=== PATIENT | female | born 1950 | race Caucasian/White ===

== ENCOUNTER → 2018-04-28 13:54 | Outpatient (CLI) | payer MEDICARE, SELFPAY ==
--- NOTE | 2018-04-28 13:56 | BI_ITS ---
MAMMOGRAPHY - BILATERAL DIAGNOSTIC REASON FOR EXAM: Female, 68 years old. 1 1/2 month history of palpable abnormality in the right breast. PERTINENT HISTORY: Personal history of breast cancer. Prior left lumpectomy with radiation treatment and chemotherapy. TECHNIQUE: Digital bilateral breast nicolasa (3D mammographic acquisition) in the CC and MLO projections. 2-D mediolateral oblique (MLO) and craniocaudad (CC) views of both breasts were obtained. CAD: Full Field Digital Mammography with Computer Added Detection was performed. COMPARISON: Comparison is made with prior abdomen examination dated May 07, 2017. FINDINGS: Breast Composition: The breasts are heterogeneously dense, which may obscure small masses. The patient is status post lumpectomy in the deep inferior mid aspect of the left breast. Stable appearance of the dense postoperative calcifications with deformity of the periareolar region of the left breast. There is evidence of retraction of the right nipple. There now is evidence of a 1.2 cm x 1.1 cm ill-defined nodular density in the retroareolar region of the right breast corresponding to the palpable abnormality. Correlation with ultrasound is recommended. BI/DIAG MAMM W/CAD, BILAT IMPRESSION: The palpable abnormality corresponds to a 1.3 cm x 1.1 cm irregular nodular density in the inferior retroareolar region of the right breast. This corresponds to the palpable abnormality. Correlation with ultrasound is recommended. ASSESSMENT CATEGORY: BIRADS Category 0: Incomplete. Need additional imaging evaluation. A letter regarding these results will be sent to the patient by the facility within 30 days. Approximately 10% of breast cancers are not detected by mammography. A normal mammogram should not delay biopsy of a clinically suspicious abnormality. Electronically Signed: Ismael Winters MD at 15:28 EST Tel [phone], Service support ,
--- NOTE | 2018-04-28 13:57 | US_ITS ---
STUDY: ULTRASOUND BREAST - RIGHT REASON FOR EXAM: Female, 68 years old. Palpable lump in the right breast. TECHNIQUE: Axial and longitudinal images of the RIGHT breast were performed with a high resolution ultrasound transducer. COMPARISON: Comparison is made with prior mammogram done earlier today. FINDINGS: RIGHT Breast: There is a 1.4 cm x 1.1 cm x 1.2 cm hypoechoic irregular nodule at the 6:00 position breast adjacent to the nipple. This corresponds to the palpable abnormality. A biopsy is recommended. US/Breast Limited Unilateral IMPRESSION: The palpable abnormality corresponds to a 1.4 cm x 1.1 cm x 1.2 cm ill-defined hypoechoic nodule. A biopsy is recommended. ASSESSMENT CATEGORY: BIRADS Category 5: Highly Suggestive of Malignancy - Appropriate Action Should Be Taken. A letter regarding these results will be sent to the patient by the facility within 30 days. Electronically Signed: Ismael Winters MD at 15:31 EST Tel [phone], Service support ,
== END ==
PROVIDERS: Family Provider Internal Medicine; PCP Internal Medicine; Referring Provider Internal Medicine Hematology & Oncology; Visit Provider Internal Medicine Hematology & Oncology
DX: N63.10 Unspecified lump in the right breast, unspecified quadrant (principal); C50.912 Malignant neoplasm of unspecified site of left female breast
CPT/HCPCS: 76642; 77062; 77066; G0279

== ENCOUNTER → 2018-05-03 13:42 | Outpatient (CLI) | payer MEDICARE, SELFPAY ==
--- NOTE | 2018-05-03 | BRBX_PTH ---
PATIENT: ARANZA BAILON LOC: [facility] U#:[id number] AGE/SX: 75/F ROOM: RE05/03/[address]: Dr. Yuliya Knox MD : 1950 BED: DIS: SPEC #: [id number] RECD: 05/03/18 14:54 STATUS: EDENILSON RETerri #: [id number] HARPREET: 05/03/18 00:[address]: Yuliya Knox DEPT: SURGICAL PATHOLOGY RECD BY: Hamlet Pearl ENTERED: 05/03/18 14:54 SP TYPE: BREAST BX OTHR DR: Dr. Dalton Bonilla MD Tissues: Right breast, NOS Procedures: Surgery Specimen Level IV HEADER OPERATION: Ultrasound guided needle core, right breast biopsy PRE-OP DIAGNOSIS: Right breast mass TISSUE SUBMITTED: Right breast biopsy ISCHEMIC TIME: 1 minute FIXATION TIME: 9 hours MICROSCOPIC DIAGNOSIS Right breast mass, ultrasound guided core biopsy: Invasive ductal carcinoma with the following characteristics. Nuclear grade: 2-3 Maximal length: 4.5 mm AM:rosalia 05/04/18 COMMENT ER/NV/Psx1eos studies are being performed on sections of tumor and the results from this study will be reported separately ([id number]) Case has been reviewed in consultation with Dr. Reed who concurs with the above diagnosis. BOBY:HAYLEE. MICROSCOPIC DESCRIPTION Slides are reviewed. GROSS DESCRIPTION Received is one container labeled with the patient name and designated right breast biopsy. The specimen consists of multiple elongated fragments of gagnon-yellow fibroadipose tissue that in aggregate measure 1.5 x 0.3 x 0.1 cm. The specimen is totally submitted in one cassette. / HAYLEE:rosalia 05/03/18 TC: 0 CPT: 98285
--- NOTE | 2018-05-03 | IMM_PTH ---
PATIENT: ARANZA BAILON LOC: [facility] U#:[id number] AGE/SX: 75/F ROOM: RE05/03/[address]: Dr. Yuliya Knox MD : 1950 BED: DIS: SPEC #: [id number] RECD: 05/05/18 07:59 STATUS: EDENILSON REQ #: [id number] HARPREET: 05/03/18 00:[address]: Yuliya Knox DEPT: IMMUNOHISTOCHEMISTRY RECD BY: Hannah Rogers ENTERED: 05/05/18 08:01 SP TYPE: IMMUNO OTHR DR: Dr. Dalton Bonilla MD Tissues: Right breast, NOS Procedures: CALPONIN-1 (add) CK5-6 (add) CK8 (add) E-CAD (add) HER2 STEPHY (add) KI-67 (add) P53 (add) CO (add) P40 (add) ER (initial) PHYSICIAN & [address] [address] SPECIMEN INFORMATION: Tissue Source: Right breast, biopsy Clinical Info: Right breast mass Specimen Number: [id number] CPT code: 72545, 18894 x6, 81324 x3 METHODOLOGY: Deparaffinized sections of prefer/formalin-fixed tissue or PAP/DQ stained slides are incubated with monoclonal/polyclonal antibodies/oligonucleotide probes. Localization is made via biotin free immunoperoxidase method. Appropriate controls are performed and reacted as expected. Results on target cell population are indicated in the following table: RESULTS: ANTIBODY / CLONE RESULT P53 (DO-7) positive, 2% Ki-67 (30-9) low CK8 (42sseyZ31) positive CK5-6 (D5 & 1684) negative Calponin-1 (MW581J) negative P40 (BC28) negative E-Cad (ECH-6) positive MORPHOMETRIC ANALYSIS ER (clone 6F11) positive, >95%, strong CO (clone 16/1E2) positive, >95%, strong Her-2Neu (clone CB11) negative (0-1+) The prognostic test for HER2 is performed on formalin-fixed paraffin embedded tissue. A 3+ (positive) staining pattern is defined as intense, homogeneous, complete, circumferential membranous staining in >10% of contiguous tumor cells. A similar weak (2+) staining pattern is interpreted as equivocal. TESFAYE follow-up testing is recommended for all equivocal cases. Positivity/negativity for ER/CO is reported if > or < 1% of the tumor cells are immuno- reactive, respectively. The ASCO/CAP criteria is used for scoring. Reference: Journal of Clinical Oncology, 2013; 31:0693-1009 & 2010; 16:9758-0777. Duration of fixation: 9 Hrs; Sample Adequate: Yes. These assays have not been validated on decalcified tissues. Results should be interpreted with caution given the likelihood of false negativity on decalcified specimens. These tests were developed and their performance characteristics determined by [facility]. They may not have been cleared or approved by the U.S. Food and Drug Administration. The FDA has determined that such clearance or approval is not necessary. INTERPRETATION: Right breast, biopsy: Invasive ductal carcinoma. ADDENDUM ADDENDUM ADDENDUM ADDENDUM ADDENDUM ADDENDUM ADDENDUM 05/18/2018 15:11 ADDENDUM 05/18/2018 15:11 ADDENDUM 05/18/2018 15:11 ADDENDUM 05/18/2018 15:11 ADDENDUM 05/18/2018 15:11 Positive for estrogen receptors (favorable prognostic indicator). Positive for progesterone receptors (favorable prognostic indicator). Negative for overexpression of NVV6vwp. AM:clayton 05/18/18
== END ==
PROVIDERS: Family Provider Internal Medicine; PCP Internal Medicine; Referring Provider Surgery; Visit Provider Surgery
DX: N63.10 Unspecified lump in the right breast, unspecified quadrant (principal)
CPT/HCPCS: 88305; 88341; 88342

== ENCOUNTER → 2018-05-20 10:09 | Outpatient (CLI) | payer MEDICARE, SELFPAY ==
[2018-05-18 13:46] VITALS: BMI 25.3
--- NOTE | 2018-05-20 10:13 | MRI_ITS ---
STUDY: BILATERAL BREAST MR WITHOUT AND WITH CONTRAST REASON FOR EXAM: Female, 68 years old. Nearly diagnosed right breast cancer. History of left breast cancer in 2011 with lumpectomy, chemotherapy and radiation. TECHNIQUE: Multi-sequence multi-echo imaging of both breasts was performed with a dedicated breast coil. T1-weighted and T2-weighted images were performed before the administration of contrast. T1-weighted images were also performed after the administration of 7 mL of Gadavist contrast intravenously without complications. COMPARISON: Prior mammograms dated April 28, 2018, May 07, 2017 and April 28, 2016. Right breast ultrasound dated April 28, 2018. FINDINGS: RIGHT BREAST: The breast tissue is fatty with minimal background enhancement. There is an irregular enhancing mass in the subareolar region just below the nipple measuring 1.3 x 1 x 1.3 cm. There is skin retraction and skin thickening superficial to this enhancing lesion which represents the index lesion of the known breast cancer. LEFT BREAST: The breast tissue is fatty with minimal background enhancement. There are postlumpectomy and radiation therapy changes in the left breast with loss of volume. There are no abnormal enhancing masses or areas of non-mass enhancement in the left breast. There are no enlarged or abnormal lymph nodes. There is no abnormality in the visualized regions of the chest or liver. MRI/Breast w/o and/or W Cont Bilat IMPRESSION: Irregular enhancing mass corresponding to the abnormality on comparison right mammogram and right breast ultrasound. No other significant abnormality identified. CATEGORY: BIRADS Category 6: Known Biopsy-Proven Malignancy - Appropriate Action Should Be Taken. A letter regarding these results will be sent to the patient by the facility within 30 days. Electronically Signed: Merlin Ruggiero MD at 11:12 EST , Service support ,
--- OUTSIDE RECORDS SUMMARY | 2018-07-15 05:14 | XMS RPT_ITS ---
:1950 Author Organization OHIP Support Name Relationship Address Phone ARMANDO BAILON Unavailable [address] + [place] [address] R Unavailable Unavailable Unavailable ARMANDO BAILON Unavailable [phone] [place] [address] R Unavailable Unavailable Unavailable ARMANDO BAILON Unavailable [phone] [place] [address] R Unavailable Unavailable Unavailable ARMANDO BAILON Unavailable [phone] [place] [address] R Unavailable Unavailable Unavailable R Unavailable Unavailable Unavailable R Unavailable Unavailable Unavailable ARMANDO BAILON Unavailable [phone] [place] [address] R Unavailable Unavailable Unavailable ARMANDO BAILON Unavailable [phone] [place] [address] R Unavailable Unavailable Unavailable ARMANDO BAILON Unavailable [phone] [place] [address] R Unavailable Unavailable Unavailable ARMANDO BAILON Unavailable [phone] [place] [address] R Unavailable Unavailable Unavailable ARMANDO BAILON Unavailable [phone] [place] [address] R Unavailable Unavailable Unavailable ARMANDO BAILON Unavailable [phone] [place] [address] R Unavailable Unavailable Unavailable Care Team Providers Name Role Phone Wendi Bhat Attending Unavailable Oleghe, Efewongbe Primary Care Unavailable Wendi Bhat Attending Unavailable Oleghe, Efewongbe Primary Care Unavailable Wendi Bhat Consulting Unavailable Oleghe, Efewongbe Referring Unavailable Robotham, Yuliya Attending Unavailable Isckarus, Mansour Referring Unavailable Robotham, Yuliya Attending Unavailable Robotham, Yuliya Referring Unavailable Oleghe, Efewongbe Primary Care Unavailable Robotham, Yuliya Attending Unavailable Robotham, Yuliya Referring Unavailable [place]leghe, Efewongbe Primary Care Unavailable Oleghe, Efewongbe Attending Unavailable Isckarus, Mansour Attending Unavailable Oleghe, Efewongbe Primary Care Unavailable Isckarus, Mansour Consulting Unavailable [place]he, Efewongbe Referring Unavailable Robotham, Yuliya Attending Unavailable [place]leghe, Efewongbe Referring Unavailable Robotham, Yuliya Attending Unavailable Robotham, Yuliya Referring Unavailable [place], Efewongbe Primary Care Unavailable Isckarus, Mansour Attending Unavailable Oleghe, Efewongbe Primary Care Unavailable Isckarus, Mansour Consulting Unavailable Isckarus, Mansour Attending Unavailable Isckarus, Mansour Referring Unavailable Oleghe, Efewongbe Primary Care Unavailable MINH WILKINS, DR TINSLEY Admitting Unavailable MINH WILKINS, DR TINSLEY Attending Unavailable Maria C [id number], Melo [phone] Consulting Unavailable MINH WILKINS, DR TINSLEY Primary Care Unavailable MINH WILKINS, DR TINSLEY Consulting Unavailable SRUTHI, ALESHIA Admitting Unavailable SRUTHI, ALESHIA Attending Unavailable NONE, NONE Consulting Unavailable NONE, NONE Primary Care Unavailable SRUTHI, ALESHIA Admitting Unavailable SRUTHI, ALESHIA Attending Unavailable SRUTHI, ALESHIA Consulting Unavailable MINH WILKINS, DR TINSLEY Primary Care Unavailable MINH WILKINS, DR TINSLEY Consulting Unavailable PROBLEMS PROBLEMS DATE TYPE CONDITION / CODE ATTENDING STATUS SOURCE 06/07/2018 Unknown G89.18 - Other acute Robotham, Active [place] postprocedural pain [facility] / G89.18(ICD-10) Hospital Repository 04/25/2018 Unknown C77.9 - Secondary Isckarus, Active [place] and unspecified [facility] malignant neoplasm Hospital of lymph node, Repository unspecified / C77.9(ICD-10) 04/25/2018 Unknown N63.10 - Unspecified Isckarus, Active [place] lump in the right [facility] breast, unspecified Hospital quadrant / Repository N63.10(ICD-10) 05/24/2018 Unknown I10 - Essential Oleghe, Active [place] (primary) [facility] hypertension / Hospital I10(ICD-10) Repository 05/24/2018 Unknown C50.911 - Malignant Oleghe, Active [place] neoplasm of [facility] unspecified site of Hospital right female breast Repository / C50.911(ICD-10) 05/24/2018 Unknown M85.80 - Other Oleghe, Active [place] specified disorders [facility] of bone density and Hospital structure, Repository unspecified site / M85.80(ICD-10) 05/24/2018 Unknown Z00.00 - Encounter Oleghe, Active [place] for general adult [facility] medical examination Hospital without abnormal Repository findings / Z00.00(ICD-10) 05/10/2018 Unknown C50.912 - Malignant Robotham, Active [place] neoplasm of [facility] unspecified site of Hospital left female breast / Repository C50.912(ICD-10) 09/20/2017 Admitting PERS HX MALIGNANT SRUTHI, [facility] diagnosis NEOPLASM [facility] / [facility] Z85.3(ICD-10) Repository 09/20/2017 Unknown PERS HX MALIGNANT SRUTHI, Active [facility] NEOPLASM BREAST / [facility] Hospital Z85.3(ICD-10) Repository 09/20/2017 Unknown ESTROGEN RECEPTOR SRUTHI, [facility] POSITIVE STATUS / [facility] Z17.0(ICD-10) Repository PROCEDURES PROCEDURES No Procedure Records FoundRESULTS RESULTS DISCHARGE INSTRUCTION Observed: 06/07/2018 Status: F Source: [place] 11:58 AM [facility] HOSPITAL REPOSITORY [facility] Medical Records Department [address] [place] [address] Instructions for Home/Discharge Instructions 06/07/18 1149 MR#: [id number] Acct: [id number] Name: ARANZA BAILON Rep #: [id number] : 1950 68 From: Yuliya [place] MD PCP: Dalton Bonilla MD Status: REG [facility] Discharge Diet: No Restrictions Discharge Activity: May not drive while taking narcotic pain medications. Lifting Restrictions: no lifting >15 lb on right x 2 weeks Call your doctor if your incision/area has: Continuous Slow Oozing, Sudden Increased Bleeding, Increased Pain/ Swelling, Increased Redness, Foul Smelling Discharge, Swelling at the incision site Call your doctor if you observe: Fever of 101 or Higher Remove Dressing in (days):: 2 Allergies/Adverse Reactions: Allergies No Known Allergies Allergy (Verified 05/31/18 08:06) Medications to take at Discharge Calcium Carbonate/Vitamin D3 [Calcium 600-Vit D3 200 Tablet] 2 tab PO DAILY 04/25/18 Natali-C 1,000 mg PO DAILY 04/25/18 Magnesium Oxide [Magnesium] 400 mg PO DAILY 04/25/18 Multivit with Calcium,Iron,Min [Multiple Vitamins For Women] 1 tab PO DAILY 04/25/18 [place]-3 Fatty Acids [Fish Oil] 1,200 mg PO DAILY 04/25/18 Acetaminophen/Diphenhydramine [Acetaminophen Pm Caplet] 1 each PO QHS 05/31/18 Oxycodone HCl/Acetaminophen [Percocet 5/325] 1 - 2 tablet PO Q6H PRN PRN 3 Days #15 tablet 06/07/18 Primary Care Physician: Dalton Bonilla MD [Primary Care Provider] - Test Results: Test results from this visit will be discussed in further detail at your follow-up appointment, if applicable. Please Follow Up With: Yuliya [place] MD - At the 5:00 and on the weekends call [phone] When: Call for follow-up appointment in 2 weeks Proposed Discharge Date: 06/07/18 06/07/18 1158 <Electronically signed by Yuliya [place] MD> Date Yuliya [place] MD CC: Dalton Bonilla MD BREAST BIOPSY Observed: 06/07/2018 Status: F Source: [place] SPECIMEN 11:27 AM [facility] Imaging Services [address] [place] [address] Breast Biopsy Specimen MR#: [id number] Acct: [id number] Name: ARANZA BAILON Rep #: [id number] : 1950 F 68 From: Ismael Winters MD PCP: Dalton Bonilla MD Status: [facility] Study: Breast Biopsy Specimen Date of Exam: 06/07/18 Exam# [id number] Ordering Dr: Yuliya [place] MD SURGICAL BREAST SPECIMEN RADIOGRAPH CLINICAL: Document presence of tissue clip marker in biopsy specimen. FINDINGS: Specimen shows presence of tissue clip marker. Electronically Signed: Ismael Winters MD at 12:45 EST Tel [phone], Service support , BI/Breast Biopsy Specimen CC: Dalton Bonilla MD; Yuliya [place] MD Loom Operator: Signed LYMPH NODE INJECTION Observed: 06/07/2018 Status: F Source: [facility] 7:44 AM [facility] Imaging Services [address] [place] [address] Lymph Node Injection Only MR#: [id number] Acct: [id number] Name: ARANZA BAILON Rep #: [id number] : 1950 F 68 From: Ismael Winters MD PCP: Dalton Bonilla MD Status: REG [facility] Study: Lymph Node Injection Only Date of Exam: 06/07/18 Exam# [id number] Ordering Dr: Yuliya [place] MD PROCEDURE: NUCLEAR MEDICINE Injection Morrison Node - RIGHT breast(s). REASON FOR EXAM: Female, 68 years old. Right breast cancer. TECHNIQUE: Morrison node localization using radionuclide methods of the RIGHT breast(s) was performed following subcutaneous administration of 1.1 mCi of of sulfur colloid Tc-99m. FINDINGS: 1.1 mCi of technetium labeled sulfur colloid was injected in 4 equal aliquots in the inferolateral areolar region for sentinel node imaging. NM/Lymph Node Injection Only IMPRESSION: Injection of 1.1 mCi of technetium labeled sulfur colloid in 4 equal aliquots as described. Electronically Signed: Ismael Winters MD at 8:48 EST Tel [phone], Service support , CC: Dalton Bonilla MD; Yuliya [place] MD Loom Operator: Signed BREAST W/O AND/OR W Observed: 05/20/2018 Status: F Source: [place] CONT BILAT 10:14 AM [facility] [place] [place] [facility] Imaging Services [address] [place] [address] Breast w/o and/or W Cont Bilat MR#: [id number] Acct: [id number] Name: ARANZA BAILON Rep #: [id number] : 1950 F 68 From: Merlin Ruggiero MD PCP: Dalton Bonilla MD Status: REG [facility] Study: Breast w/o and/or W Cont Bilat Date of Exam: 05/20/18 Exam# [id number] Ordering Dr: Yuliya [place] MD STUDY: BILATERAL BREAST MR WITHOUT AND WITH CONTRAST REASON FOR EXAM: Female, 68 years old. Nearly diagnosed right breast cancer. History of left breast cancer in 2011 with lumpectomy, chemotherapy and radiation. TECHNIQUE: Multi-sequence multi-echo imaging of both breasts was performed with a dedicated breast coil. T1-weighted and T2- weighted images were performed before the administration of contrast. T1- weighted images were also performed after the administration of 7 mL of Gadavist contrast intravenously without complications. COMPARISON: Prior mammograms dated April 28, 2018, May 07, 2017 and April 28, 2016. Right breast ultrasound dated April 28, 2018. FINDINGS: RIGHT BREAST: The breast tissue is fatty with minimal background enhancement. There is an irregular enhancing mass in the subareolar region just below the nipple measuring 1.3 x 1 x 1.3 cm. There is skin retraction and skin thickening superficial to this enhancing lesion which represents the index lesion of the known breast cancer. LEFT BREAST: The breast tissue is fatty with minimal background enhancement. There are postlumpectomy and radiation therapy changes in the left breast with loss of volume. There are no abnormal enhancing masses or areas of non-mass enhancement in the left breast. There are no enlarged or abnormal lymph nodes. There is no abnormality in the visualized regions of the chest or liver. MRI/Breast w/o and/or W Cont Bilat IMPRESSION: Irregular enhancing mass corresponding to the abnormality on comparison right mammogram and right breast ultrasound. No other significant abnormality identified. CATEGORY: BIRADS Category 6: Known Biopsy-Proven Malignancy - Appropriate Action Should Be Taken. A letter regarding these results will be sent to the patient by the facility within 30 days. Electronically Signed: Merlin Ruggiero MD at 11:12 EST , Service support , CC: Dalton Bonilla MD; Yuliya [place] MD Loom Operator: Signed INTERNAL MEDICINE Observed: 05/19/2018 Status: F Source: [place] OFFICE VISIT 2:30 PM [facility] Internal Medicine [address] [place] [address] [place] [address] OFFICE VISIT Date of Service: 05/18/18 MR#: [id number] Acct: [id number] Name: ARANZA BAILON Rep #: [id number] : 1950 Provider: Dalton Bonilla MD Age/Sex: 68/F Location: [facility] Status: Signed Intake Vital Signs05/18/18 Height 5 ft 2.5 in Intake Visit Reasons: EST PCP Chief Complaint: establish care Is patient in pain?: No Allergies No Known Allergies Allergy (Verified 05/10/18 11:20) Medications Calcium Carbonate/Vitamin D3 [Calcium 600-Vit D3 200 Tablet] 2 tab PO DAILY 04/25/18 [History Confirmed 05/18/18] Natali-C 500 mg PO DAILY 04/25/18 [History Confirmed 05/18/18] Magnesium Oxide [Magnesium] 400 mg PO DAILY 04/25/18 [History Confirmed 05/18/18] Multivit with Calcium,Iron,Min [Multiple Vitamins For Women] 1 tab PO DAILY 04/25/18 [History Confirmed 05/18/18] [place]-3 Fatty Acids [Fish Oil] 500 mg PO DAILY 04/25/18 [History Confirmed 05/18/18] acetaminophen 500 mg capsule 500 mg PO QHS PRN cap 05/18/18 [History Confirmed 05/18/18] Post menopausal: Yes PFSH Medical History Cancer of left breast (Acute) Cancer of right breast (Acute) Depression (Acute) History of hysterectomy (Acute) Surgical History History of lumpectomy (Acute) Family History Father Cancer Other No pertinent family history Social History Smoking Status: Never smoker alcohol intake: never substance use type: does not use what type of physical activity do you participate in: none HPI HPI Chief Complaint: establish care Details: ARANZA BAILON, is a 68yo F who presents to the office today to establish care. She has past medical history significant for breast cancer with most recent diagnosis about a month ago. Currently following up with oncology and general surgery. Initial diagnosis of breast cancer was in 2011 following which she had a lumpectomy. On routine follow-up with oncologist, right breast mass was found which after biopsy was confirmed to be breast cancer. She is doing well so far denies any concerns at this time. Positive family history of mesothelioma in her father who had worked in insulation factory. Mother is 97 and is alive and well. She denies any other significant family history. Prior history of osteopenia however, patient states that her most recent bone density was normal. Currently on calcium and vitamin D daily. She denies any known history of hypertension however, on review of her chart she has had consistently elevated blood pressure. Blood pressure today elevated at 158/80mmHg. ROS Const Constitutional: No weight change, body ache, chills, fatigue, sleep problems, fever(s), change in appetite, snoring, weakness, frequent falls, headache(s) or excessive sweating Eyes Eyes: No change in vision, eye pain, light sensitivity or blurry vision ENT ENT: No headache(s), abnormal hearing, ear pain, tinnitus, nasal congestion, sore throat or neck pain Resp Respiratory: No snoring, cough, shortness of breath or wheezing Cardio Cardiology: No excessive sweating, chest pain at rest, chest pain with exertion, shortness of breath, dyspnea on exertion, palpitations, orthopnea or lightheadedness Gastro GI: No abdominal pain, change in bowel habits, constipation, diarrhea, vomiting, nausea/dyspepsia or cramping Genitourinary-Female: No burning urination, painful urination, urinary incontinence, urinary frequency, abnormal vaginal bleeding, pelvic pain or other Musc Musculoskeletal: No neck pain, abnormal walking, joint pain, back pain, limited range of motion, numbness or tingling Skin Skin: No redness, dry skin, itching, lesions, wounds or rash Neuro Neurology: No weakness, frequent falls, headache(s), abnormal hearing, abnormal walking, numbness, tingling, abnormal speech, dizziness or memory loss Psych Psychiatric: No change in appetite, No memory loss, No anxiety, No depression, No Thoughts of harming yourself/Others Endo Endocrine: No fatigue, excessive sweating, cold intolerance, increased thirst/drinking, heat intolerance, flushing or increased hunger Aller/Imm Allergy/Immunologic: No wheezing, itchy eyes, hives or seasonal allergy symptoms Rudi/Lymp Hematologic/Lymphatic: No easy bleeding, easy bruising or enlarged lymph nodes Exam Const General: cooperative, no acute distress, well developed Orientation: alert, awake, oriented x3 HENIN Head: atraumatic, normal to inspection, normocephalic Ears: hearing grossly normal bilaterally, TM's normal bilaterally Neck Neck: normal visual inspection, full ROM, no lymphadenopathy Neck mass: No Thyroid: thyroid normal Resp Effort AND Inspection: normal respiratory effort, able to speak in complete sentences Auscultation: Bilateral: Clear to Auscultation Cardio Rate: regular rate Rhythm: regular rhythm Heart Sounds: S1 normal, S2 normal GI Palpation: soft, no hepatosplenomegaly Neuro General: alert, awake, oriented x3, moves all extremities, CN's II-XI intact bilaterally Extrem General: no clubbing, cyanosis or edema Psych Appearance: grossly normal Mental Status: mental status grossly normal Mood: congruent mood Affect: normal affect Assessment AND Plan 1. Hypertension I10 Plan Review of her chart shows persistently elevated blood pressure. No prior history of hypertension. Lifestyle and dietary modifications discussed. Also advised to keep blood pressure log. Follow-up in 3 months. Lipid profile ordered. Orders Orders: 2. Breast cancer, right breast C50.911 Plan Currently following up with oncology. Plan is for adjuvant therapy. Will follow. 3. Osteopenia M85.80 Plan Continue calcium and vitamin D. Last bone density per records was in 2017. Muscle strengthening exercises also recommended. 4. Healthcare maintenance Z00.00 Plan Patient declines colonoscopy however is willing to think about cold guard. Also declines flu or pneumonia vaccines. Readdress at next visit. Coding Level of Care Code Off vis,new,level 3 Diagnoses Hypertension I10 Breast cancer, right breast C50.911 Osteopenia M85.80 Healthcare maintenance Z00.00 05/19/18 1430 <Electronically signed by Dalton Bonilla MD> Date Dalton Bonilla MD Cosigner Signature: Date (if applicable) CC: SURGERY VISIT REPORT Observed: 05/16/2018 Status: F Source: [place] 8:17 AM [facility] [address] [place] [address] [place] [address] OFFICE VISIT Date of Service: 05/10/18 MR#: [id number] Acct: [id number] Name: ARANZA BAILON Rep #: [id number] : 1950 Provider: Yuliya [place] MD Age/Sex: 68/F Location: [facility] Status: Signed Intake Intake Visit Reasons: 1 W FU Chief Complaint: post breast biopsy results Recycling Worker Required: No Is patient in pain?: No Allergies No Known Allergies Allergy (Verified 05/10/18 11:20) Medications Calcium Carbonate/Vitamin D3 [Calcium 600-Vit D3 200 Tablet] 2 tab PO DAILY 04/25/18 [History Confirmed 05/10/18] Natali-C 500 mg PO DAILY 04/25/18 [History Confirmed 05/10/18] Magnesium Oxide [Magnesium] 400 mg PO DAILY 04/25/18 [History Confirmed 05/10/18] Multivit with Calcium,Iron,Min [Multiple Vitamins For Women] 1 tab PO DAILY 04/25/18 [History Confirmed 05/10/18] [place]-3 Fatty Acids [Fish Oil] 500 mg PO DAILY 04/25/18 [History Confirmed 05/10/18] Is last menstrual period known: No Post menopausal: Yes Patient : No Subjective Details: Patient presents for discussion of pathology after right breast biopsy. Pathology was consistent with invasive ductal carcinoma ER AK greater than 95%, HER-2/abril negative. Patient does have some bruising after that biopsy however that it is resolving. Patient denies any pain currently. Objective Details: Right breast: Resolving ecchymosis, 1.5 x 1.5 cm mass at 6:00 adjacent to the nipple Assessment AND Plan Problems 1. Breast cancer, right breast C50.911 2. Primary cancer of left female breast C50.912 ER negative, AK negative, HER-2 overexpressed, 2011 3. 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 Options are the following: lumpectomy (which would include the nipple areolar complex) followed by radiation therapy vs. mastectomy vs. mastectomy followed by immediate reconstruction. I have described the procedures to the patient. I have described the advantages and disadvantages of the options, but I have told the patient that among the options, the survival rate for breast cancer is the same. I have told the patient that with all the surgeries that a sentinel lymph node biopsy is required. I have described the procedure of sentinel lymph node biopsy to the patient. I have told the patient that if the biopsy is positive for metastatic disease, then a full axillary lymph node dissection is required. I have told the patient that adjuvant chemotherapy will be required should the lymph nodes reveal metastatic disease. Also, a full lymph node dissection will increase the risk for lymphedema, especially if there are 3 or more lymph nodes positive for metastatic disease and radiation to the axilla is also required. I have told the patient the risks of surgery, including but not limited to: infection, bleeding, scar tissue, seroma and persistent seroma, lymph leak, injury to any blood vessels, injury to any nerves (particularly the long thoracic, the thoracodorsal, and the second intercostal brachial and the resultant sequelae), lymphedema, cosmetic deformity, dysesthesias, wound infections, further surgery (especially if margins are not clear), complications of anesthesia, etc. the patient understands. We will check an MRI of the breast due to patient's previous history of breast cancer on the left status post chemo/radiation and Herceptin. Discussed with patient that this may change the surgery that would be offered if there are any other areas of concern in either breast. Currently the patient states that if the MRI is negative other than the right breast mass she would prefer a lumpectomy which would include the nipple areolar complex. She does understand that this would include radiation therapy. Patient currently was not interested in a mastectomy or meeting with plastic surgery which was also offered. Once the MRI is complete we will discuss again with the patient. I have answered all the patient and s questions at this point to their satisfaction and they has no further questions. Yuliya Knox M.D. Pager: [phone] [facility] [address] [place] [address], [address] [place] [address] Office: 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 [place] [address] OFFICE VISIT Date of Service: 05/10/18 1105 MR#: [id number] Acct: [id number] Name: ARANZA BAILON Rep #: [id number] : 1950 From: Wendi Bhat MD Age/Sex: 68/F Location: [facility] Status: Signed - Problem List (1) Breast cancer, right breast Status: Acute (2) Primary cancer of left female breast Status: Chronic Comment: ER negative, AK negative, HER-2 overexpressed, 2011 (3) Regional lymph node metastasis present Status: Chronic - Date of Service Date of Service:: 05/10/18 - Chief Complaint Right breast cancer, new diagnosis - History of Present Illness Patient is a 68-year-old female who presented in April 2018 with a newly felt lump in the right breast. Mammogram and ultrasound April 2018 is highly suspicious for malignancy. Biopsy on May 03, 2018 confirmed an invasive ductal cancer, ER (clone 6F11) positive, >95%, strong AK (clone 16/1E2) positive, >95%, strong Her-2Neu (clone CB11) negative (0-1+) Her past history is notable for left breast cancer that presented with a palpable lump in the left breast. February 03, 2012 she underwent a left breast partial mastectomy and left axillary lymph node dissection. Pathology revealed an invasive ductal cancer overall grade 2 with 1 of 13 lymph nodes positive for metastatic cancer. Cancer was ER negative, AK negative, HER-2 overexpressed. She received systemic adjuvant therapy with 4 cycles of AC, followed by weekly Taxol with Herceptin for 12 weeks then completed 1 year of adjuvant Herceptin by June 2012. He did receive adjuvant radiation therapy. Her care was at [facility]. He has been on surveillance since. She has recently moved to [facility] and wishes to transfer care close to residence - Past Medical/Social History Past Medical History Cancer: Breast cancer Social History Social History: No changes Smoking Status Never smoker Review of Systems Comment: See my recent note of 04/25/2018 Vital Signs Height 5 ft 2.5 in Weight: 63.594 kg Weight in Pounds 140.2 lbs Pulse Ox 99 - Physical Exam General: Alert, Oriented x3, No apparent distress, - - ECOG 0 For full exam please see my note of 04/25/2018 Psychiatric:: Anxious Pathology Data: Reviewed in EMR and summarized in HPI Assessment and Plan 68-year-old female with 1- right breast cancer, invasive ductal, ER positive (95%, AK positive (95%) HER-2 not amplified, quite distinct from her left breast cancer of 2011. Patient was seen by , an MRI of the breast has been scheduled and patient would favor breast conserving surgery if possible. Unless otherwise indicated by MRI findings she will be scheduled for a partial mastectomy with sentinel lymph node biopsy. Follow-up with myself in 3-4 weeks following definitive surgery to discuss adjuvant therapy. 2. 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 Her adjuvant treatment was concluded June 2012. Comorbid conditions: Osteopenia (last bone density May 2017) on vitamin D and calcium. Patient was seen with her , impression and plan discussed. Medications: Prescriptions This Visit Medication Instructions Recorded Calcium Carbonate/Vitamin D3 2 tab PO DAILY 04/25/18 [Calcium 600-Vit D3 200 Tablet] Natali-C 500 mg PO DAILY 04/25/18 Magnesium Oxide [Magnesium] 400 mg PO DAILY 04/25/18 Primary Care Provider: Dalton Bonilla MD Referring Provider: 05/10/18 1142 <Electronically signed by Wendi Bhat MD> Date Wendi Bhat MD Cosigner Signature: Date (if applicable) CC: SURGERY VISIT REPORT Observed: 05/05/2018 Status: F Source: [place] 3:38 PM [facility] [place] [facility] 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 Is patient in pain?: No Allergies No Known Allergies Allergy (Unverified 05/03/18 09:42) Medications Calcium Carbonate/Vitamin D3 [Calcium 600-Vit D3 200 Tablet] 2 tab PO DAILY 04/25/18 [History Confirmed 05/03/18] Natali-C 500 mg PO DAILY 04/25/18 [History Confirmed 05/03/18] Magnesium Oxide [Magnesium] 400 mg PO DAILY 04/25/18 [History Confirmed 05/03/18] Multivit with Calcium,Iron,Min [Multiple Vitamins For Women] 1 tab PO DAILY 04/25/18 [History Confirmed 05/03/18] [place]-3 Fatty Acids [Fish Oil] 500 mg PO DAILY 04/25/18 [History Confirmed 05/03/18] PFSH Medical History History of hysterectomy (Acute) Cancer of left breast (Acute) Depression (Acute) Surgical History History of lumpectomy (Acute) Family History Other No pertinent family history Social History Smoking Status: Never smoker HPI HPI HPI: ARANZA BAILON, is a 68 F who presents to the office today for right breast mass at 6:00 adjacent to the nipple. Patient states that her oncologist noticed it at the beginning of February. Patient did change oncologist to 1 and was started due to that she no longer lives near [place] and did move the [place]. Patient denies any pain. Patient underwent a mammogram as well as an ultrasound which is given a BI-RADS 5 showed a hypoechoic irregular 1.4 cm x 1.1 cm x 1.2 cm nodule at 6:00 adjacent to the nipple. Patient also has a history of left breast cancer that was ER AK negative and HER-2 new positive and underwent left lumpectomy as well as axillary node dissection where 1 out of 13 nodes were positive. Patient underwent chemotherapy and radiation and a year of Herceptin in 2012. ROS General General: Yes breast cancer Breast Breast: Yes right breast lump, abnormal mammogram and abnormal US; no nipple discharge or breast pain Exam Const General: cooperative, comfortable, no acute distress Chest Breast Palpation: No nipple discharge Other: Inspection: Symmetric bilaterally, left inferior nipple incision healed, right breast palpable mass about centimeter and half by centimeter half just inferior and adjacent to the nipple, nontender, no change the overlying skin, no nipple discharge or any other masses or lumps appreciated. Left breast: No masses or nipple discharge or changes overlying skin appreciated. No supraclavicular or axillary adenopathy bilaterally, previous left axillary incision well-healed no signs of lymphedema. Office Procedures Biopsy Provider Documentation Procedure: ultrasound-guided core biopsy Indications: 68 year-old female with the hypoechoic solid nodule at 6:00 in the right breast adjacent to that nipple. Risk and benefits including but not limited to, bleeding, infection, hematoma were discussed the patient and she elected to proceed with ultrasound guided core biopsy with clip placement Description of procedure: Patient was brought into the ultrasound room in the right breast was marked. A timeout was completed verifying correct patient, procedure, site, specially, prior to beginning procedure. The right breast was prepped and draped in usual sterile fashion and using local anesthesia was obtained with 1% lidocaine with epi. The lesion was located with the ultrasound. Small incision was made with 11 blade to introduced the 14-gauge Bard maxcore through the skin. Under ultrasound guidance multiple core samples were obtained using then BARD MaxCore and sent in formalin for pathology. The mammotome mammostar clip was then deployed into the biopsy cavity under ultrasound guidance and a picture was taken. Upon completion procedure hemostasis was obtained and a Steri- Strip and OpSite were placed. The patient tolerated the procedure well and was discharged from the breast imaging department good condition. Alert Debby Yes Biopsy Breast Biopsy: 79799 US Guidance Procedure Time Out Time Out Informed consent given: Yes Consent signed: Yes Time out checklist: patient, procedure, site marked/identified, positioning of patient, supplies available, allergies confirmed, team agrees on procedure Time out staff in room: Yes Time out verified: Yes Time out date: 05/03/18 Time out time: 09:43 Assessment AND Plan Problems 1. Breast mass, right N63.10 2. Primary cancer of left female breast C50.912 ER negative, AK negative, HER-2 overexpressed, 2011 Plan Patient underwent a successful ultrasound-guided biopsy of the right breast mass. Patient tolerated procedure well. Await pathology results. Will call patient with pathology results and then arrange follow-up at that time. Yuliya Knox M.D. Pager: [phone] [facility] [address] [place] [address], [facility], [address] [place] [address] Office: [phone] Plan Detail Follow Up Will call patient with pathology results and arrange follow- up at that time. Coding Level of Care Code Off vis,new,level 3 Diagnoses Breast mass, right N63.10 Primary cancer of left female breast C50.912 Additional Codes Biopsy - Breast Biopsy: 76180 US Guidance (22317) Comment 16851 05/05/18 1538 <Electronically signed by Yuliya Knox MD> Date Yuliya Knox MD Cosigner Signature: Date (if applicable) CC: Dalton Bonilla MD; Wendi Bhat MD IMMUNOHISTOCHEMISTRY Observed: 05/03/2018 Status: F Source: [place] 12:00 AM [facility] [place] Patient: ARANZA BIALON : 1950 (68/F) Acct Num: [id number] Phys: Lisette WILKINS,Yuliya Unit Num: [id number] Loc: [facility] Specimen: [id number] Received: 05/05/18 - 0759 Spec Type: IMMUNO TISSUES 1 TISSUES: Right breast, NOS ADDENDUM Addendum Number 1 Positive for estrogen receptors (favorable prognostic indicator). Positive for progesterone receptors (favorable prognostic indicator). Negative for overexpression of CXJ8gmh. AM:clayton 05/18/18 Addendum Signed Varun Sauceda 05/18/18 <signature on file> SPECIMEN INFORMATION: Tissue Source: Right breast, biopsy Clinical Info: Right breast mass Specimen Number: [id number] CPT code: 29134, 22611 x6, 32529 x3 METHODOLOGY: Deparaffinized sections of prefer/formalin-fixed tissue or PAP/DQ stained slides are incubated with monoclonal/polyclonal antibodies/oligonucleotide probes. Localization is made via biotin free immunoperoxidase method. Appropriate controls are performed and reacted as expected. Results on target cell population are indicated in the following table: RESULTS: ANTIBODY / CLONE RESULT P53 (DO-7) positive, 2% Ki-67 (30-9) low CK8 (32kjfvR88) positive CK5-6 (D5 AND 1684) negative Calponin-1 (ED562R) negative P40 (BC28) negative E-Cad (ECH-6) positive MORPHOMETRIC ANALYSIS ER (clone 6F11) positive, >95%, strong AK (clone 16/1E2) positive, >95%, strong Her-2Neu (clone CB11) negative (0-1+) The prognostic test for HER2 is performed on formalin-fixed paraffin embedded tissue. A 3+ (positive) staining pattern is defined as intense, homogeneous, complete, circumferential membranous staining in >10% of contiguous tumor cells. A similar weak (2+) staining pattern is interpreted as equivocal. TESFAYE follow- up testing is recommended for all equivocal cases. Positivity/negativity for ER/ AK is reported if > or < 1% of the tumor cells are immuno- reactive, respectively. The ASCO/CAP criteria is used for scoring. Reference: Journal of Clinical Oncology, 2013; 31:8421-1945 AND 2010; 16:2784- 2795. Duration of fixation : 9 Hrs; Sample Adequate: Yes. These assays have not been validated on decalcified tissues. Results should be interpreted with caution given the likelihood of false negativity on decalcified specimens. These tests were developed and their performance characteristics determined by [facility]. They may not have been cleared or approved by the U.S. Food and Drug Administration. The FDA has determined that such clearance or approval is not necessary. INTERPRETATION: Right breast, biopsy: Invasive ductal carcinoma. PHYSICIAN AND INSTITUTION [facility] [address] [place], [place] [address] Signed Varun [facility] 05/05/18 <signature on file> Performed By: #### PIMM #### [facility] [address] [place], [place] [address]. [place], [place], [address] BREAST BIOPSY Observed: 05/03/2018 Status: F Source: [place] ([place] 12:00 AM [facility] [place] Patient: ARANZA BAILON : 1950 (68/F) Acct Num: [id number] Phys: Lisette WILKINS,Yuliya Unit Num: [id number] Loc: [facility] Specimen: [id number] Received: 05/03/18 - 8113 Spec Type: BREAST BX TISSUES 1 TISSUES: Right breast, NOS COMMENT ER/AK/Yqo6blp studies are being performed on sections of tumor and the results from this study will be reported separately ([id number]) Case has been reviewed in consultation with Dr. Reed who concurs with the above diagnosis. IDC:SJ. GROSS DESCRIPTION Received is one container labeled with the patient name and designated right breast biopsy. The specimen consists of multiple elongated fragments of gagnon- yellow fibroadipose tissue that in aggregate measure 1.5 x 0.3 x 0.1 cm. The specimen is totally submitted in one cassette. / SJ:rosalia 05/03/18 TC: 0 CPT: 56962 HEADER OPERATION: Ultrasound guided needle core, right breast biopsy PRE-OP DIAGNOSIS: Right breast mass TISSUE SUBMITTED: Right breast biopsy ISCHEMIC TIME: 1 minute FIXATION TIME: 9 hours MICROSCOPIC DESCRIPTION Slides are reviewed. MICROSCOPIC DIAGNOSIS Right breast mass, ultrasound guided core biopsy: Invasive ductal carcinoma with the following characteristics. Nuclear grade: 2-3 Maximal length: 4.5 mm AM:sp 05/04/18 Signed Varun [facility] 05/05/18 <signature on file> Performed By: #### PBRBX #### [facility] [address] [place], [address] ONCOLOGY VISIT REPORT Observed: 05/02/2018 Status: F Source: [place] 2:00 PM [facility] [facility] [place] [facility] [address] [place] [address] OFFICE VISIT Date of Service: 05/02/18 1350 MR#: [id number] Acct: [id number] Name: ARANZA BAILON Rep #: [id number] : 1950 From: Wendi Bhat MD Age/Sex: 68/F Location: [facility] Status: Signed - Problem List (1) Primary cancer of left female breast Status: Chronic Comment: ER negative, AK negative, HER-2 overexpressed, 2011 (2) Regional lymph node metastasis present Status: Chronic - Date of Service Date of Service:: 05/02/18 - Chief Complaint New lump in the right breast - History of Present Illness Patient is a 68-year-old female who presents with a newly felt lump in the right breast. Mammogram and ultrasound April 2018 is highly suspicious for malignancy. Her past history is notable for left breast cancer that presented with a palpable lump in the left breast. February 03, 2012 she underwent a left breast partial mastectomy and left axillary lymph node dissection. Pathology revealed an invasive ductal cancer overall grade 2 with 1 of 13 lymph nodes positive for metastatic cancer. Cancer was ER negative, AK negative, HER-2 overexpressed. She received systemic adjuvant therapy with 4 cycles of AC, followed by weekly Taxol with Herceptin for 12 weeks then completed 1 year of adjuvant Herceptin by June 2012. He did receive adjuvant radiation therapy. Her care was at [facility]. He has been on surveillance since. She has recently moved to [facility] and wishes to transfer care close to residence - Past Medical/Social History Past Medical History Cancer: Breast cancer Social History Social History: No changes Smoking Status Never smoker Review of Systems Psychiatric: Reports: Anxiety Comment: See my recent note of April 25, 2018 Vital Signs Height 5 ft 2.5 in Weight: 63.594 kg Weight in Pounds 140.2 lbs Pulse Ox 99 - Physical Exam General: Alert, Oriented x3, No apparent distress, - - ECOG 0 Psychiatric:: Anxious Diagnostic Data: Mammogram and ultrasound highly suspicious for malignancy April 2018 Assessment and Plan 68-year-old female with 1-newly felt nodule in the right breast, mammography and ultrasound are highly suspicious for malignancy, to proceed to biopsy, patient requested a female surgeon. 2. 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 Her adjuvant treatment was concluded June 2012. Comorbid conditions: Osteopenia (last bone density May 2017) on vitamin D and calcium. Medications: Prescriptions This Visit Medication Instructions Recorded Calcium Carbonate/Vitamin D3 2 tab PO DAILY 04/25/18 [Calcium 600-Vit D3 200 Tablet] Natali-C 500 mg PO DAILY 04/25/18 Magnesium Oxide [Magnesium] 400 mg PO DAILY 04/25/18 Primary Care Provider: Dalton Bonilla MD Referring Provider: 05/02/18 1400 <Electronically signed by Wendi Bhat MD> Date Wendi Bhat MD Cosigner Signature: Date (if applicable) CC: Dalton Bonilla MD; Yuliya Knox MD BREAST LIMITED Observed: 04/28/2018 Status: F Source: [place] UNIL[place] 1:57 PM [facility] [place] [facility] [address] [place] [address] Breast Limited Unilateral MR#: [id number] Acct: [id number] Name: UVALDOARANZA Shauna Rep #: [id number] : 1950 F 68 From: Ismael Winters MD PCP: Dalton Bonilla MD Status: REG CLI Study: Breast Limited Unilateral Date of Exam: 04/28/18 Exam# [id number] Ordering Dr: Wendi Bhat MD STUDY: ULTRASOUND BREAST - RIGHT REASON FOR EXAM: Female, 68 years old. Palpable lump in the right breast. TECHNIQUE: Axial and longitudinal images of the RIGHT breast were performed with a high resolution ultrasound transducer. COMPARISON: Comparison is made with prior mammogram done earlier today. FINDINGS: RIGHT Breast: There is a 1.4 cm x 1.1 cm x 1.2 cm hypoechoic irregular nodule at the 6:00 position breast adjacent to the nipple. This corresponds to the palpable abnormality. A biopsy is recommended. US/Breast Limited Unilateral IMPRESSION: The palpable abnormality corresponds to a 1.4 cm x 1.1 cm x 1.2 cm ill-defined hypoechoic nodule. A biopsy is recommended. ASSESSMENT CATEGORY: BIRADS Category 5: Highly Suggestive of Malignancy - Appropriate Action Should Be Taken. A letter regarding these results will be sent to the patient by the facility within 30 days. Electronically Signed: Ismael Winters MD at 15:31 EST Tel [phone], Service support , CC: Dalton Bonilla MD; Wendi Bhat MD Loom Operator: Signed DIAG MAMM W/CAD, Observed: 04/28/2018 Status: F Source: [place] 1:56 PM [facility] [place] [facility] Imaging [facility] [place] [address] DIAG MAMM W/CAD, BILAT MR#: [id number] Acct: [id number] Name: STEVEN BAILONNIDulce Villatoro Rep #: [id number] : 1950 F 68 From: Ismael Winters MD PCP: Dalton Bonilla MD Status: REG CLI Study: DIAG MAMM W/CAD, BILAT Date of Exam: 04/28/18 Exam# [id number] Ordering Dr: Wendi Bhat MD MAMMOGRAPHY - BILATERAL DIAGNOSTIC REASON FOR EXAM: Female, 68 years old. 1 1/2 month history of palpable abnormality in the right breast. PERTINENT HISTORY: Personal history of breast cancer. Prior left lumpectomy with radiation treatment and chemotherapy. TECHNIQUE: Digital bilateral breast nicolasa (3D mammographic acquisition) in the CC and MLO projections. 2-D mediolateral oblique (MLO) and craniocaudad (CC) views of both breasts were obtained. CAD: Full Field Digital Mammography with Computer Added Detection was performed. COMPARISON: Comparison is made with prior abdomen examination dated May 07, 2017. FINDINGS: Breast Composition: The breasts are heterogeneously dense, which may obscure small masses. The patient is status post lumpectomy in the deep inferior mid aspect of the left breast. Stable appearance of the dense postoperative calcifications with deformity of the periareolar region of the left breast. There is evidence of retraction of the right nipple. There now is evidence of a 1.2 cm x 1.1 cm ill-defined nodular density in the retroareolar region of the right breast corresponding to the palpable abnormality. Correlation with ultrasound is recommended. BI/DIAG MAMM W/CAD, BILAT IMPRESSION: The palpable abnormality corresponds to a 1.3 cm x 1.1 cm irregular nodular density in the inferior retroareolar region of the right breast. This corresponds to the palpable abnormality. Correlation with ultrasound is recommended. ASSESSMENT CATEGORY: BIRADS Category 0: Incomplete. Need additional imaging evaluation. A letter regarding these results will be sent to the patient by the facility within 30 days. Approximately 10% of breast cancers are not detected by mammography. A normal mammogram should not delay biopsy of a clinically suspicious abnormality. Electronically Signed: Ismael Winters MD at 15:28 EST Tel [phone], Service support , CC: Dalton Bonilla MD; Wendi Bhat MD Loom Operator: Signed CBC W/DIFF, AUTOMATED Collected: 04/25/2018 Status: F Source: [place] 11:04 AM [facility] [place] Order Comment: Reason for Laboratory Test . TYPE CODE TESTS RESULT OUT OF RANGE REFERENCE UNITS LAB L100.1000 4.4-11.0 K/mm3 Normal WBC 6.7 LAB L100.1200 4.2-5.4 M/mm3 Normal RBC 4.50 LAB L100.1300 12.0-15.0 g/dl Normal HGB 13.6 LAB L100.1400 37-47 % Normal HCT 41.5 LAB L100.1500 81-99 fL Normal MCV 92.2 LAB L100.1600 27.0-32.0 pg Normal MCH 30.2 LAB L100.1700 32-36 g/gl Normal MCHC 32.8 LAB L100.1810 11.6-14.6 % Normal RDW CV 13.4 LAB L100.1820 35.1-43.9 fl High RDW SD 44.7 LAB L100.1900 150-450 K/mm3 Normal PLT 241 LAB L100.2000 6.2-12.0 fl Normal MPV 9.3 LAB L100.2100 47-70 % Normal NEUT% 67.4 LAB L100.2200 19-41 % Normal LY% 23.5 LAB L100.2300 0-10 % Normal MONO% 6.5 LAB L100.2400 0-5 % Normal EO% 1.6 LAB L100.2500 0-1 % Normal BASO% 0.9 LAB L100.2550 0.0-0.9 % Normal IM GRAN % 0.100 Result Comment: IG% - Immature Granulocytes (promyelocytes, myelocytes and metamyelocytes) > 1% indicates that a LEFT SHIFT is Present. LAB L100.2620 2.0-7.7 X10 3/uL Normal Absolute Neut 4.5 LAB L100.2720 0.83-4.51 X10 3/ul Normal Absolute Lymph 1.58 Performed By: #### L100.0100 #### [facility] [address] [place], [place], [address] COMPREHENSIVE METABOLIC Collected: 04/25/2018 Status: F Source: [place] 11:04 AM [facility] [place] Order Comment: Reason for Laboratory Test . TYPE CODE TESTS RESULT OUT OF RANGE REFERENCE UNITS LAB L501.0100 74-106 mg/dL Normal GLU 94 Result Comment: Please note revised GLUCOSE reference range effective 2017. LAB L501.1000 7-18 mg/dL High BUN 23 LAB L501.1100 0.55-1.02 mg/dL Normal CREAT,SERUM 0.88 Result Comment: The validity of the calculated GFR AND GFRAA in patients over 70 years has not been determined. Clinical correlation is essential. LAB L501.1110 >60 mL/min Normal EST GFR 68 Result Comment: Non- GFR Calc LAB L501.1115 >60 mL/min Normal EST GFR - AA 82 Result Comment: GFR Calc LAB L501.1255 ml/min Normal Estimated CRCL 48.39 LAB L501.1300 10-20 RATIO High BUN/CRE 26.2 LAB L501.1500 6.4-8. g/dL Normal 2 T PROT 8.0 LAB L501.1800 3.2-5. g/dL Normal 0 ALB 3.9 LAB L501.1950 2.2-4. g/dL Normal 2 GLOB 4.1 LAB L501.2000 0.9-2. RATIO Normal 4 A/G 1.0 LAB L501.2200 8.5-10 mg/dL Normal .1 CA 9.0 LAB L501.4100 15-37 U/L Normal AST 15 LAB L501.4305 45-117 U/L Normal ALK P 87 LAB L501.4405 13-56 U/L Normal ALT 17 LAB L501.4600 0.20-1 mg/dL Normal .00 T BILI 0.50 LAB L501.5300 136-14 mmol/L Normal 5 NA 140 LAB L501.5600 3.5-5. mmol/L Normal 1 K 3.9 LAB L501.5900 98-107 mmol/L Normal CL 106 LAB L501.6100 21.0-3 mmol/L Normal 2.0 CO2 26.0 LAB L501.6200 5-15 Normal GAP 8 Performed By: #### L500.4050 #### [facility] [address] [place], [address] ONCOLOGY HISTORY AND Observed: 04/25/2018 Status: F Source: [place] PHYSICAL 10:50 AM [facility] [place] [facility] Medical Records Department [address] [place] [address] History and Physical 04/25/18 1005 MR#: [id number] Acct: [id number] Name: ARANZA BAILON Rep #: [id number] : 1950 68 From: Wendi Bhat MD PCP: Dalton Bonilla MD Status: REG RCR Y Location: [facility] - Problem List (1) Primary cancer of left female breast Status: Chronic Comment: ER negative, AK negative, HER-2 overexpressed, 2011 (2) Regional lymph node metastasis present Status: Chronic Subjective Date of Service:: 04/25/18 Chief Complaint: Breast lump History of Present Illness: Patient is a 68-year-old female who presents with a newly felt lump in the right breast. Her past history is notable for left breast cancer that presented with a palpable lump in the left breast. February 03, 2012 she underwent a left breast partial mastectomy and left axillary lymph node dissection. Pathology revealed an invasive ductal cancer overall grade 2 with 1 of 13 lymph nodes positive for metastatic cancer. Cancer was ER negative, AK negative, HER-2 overexpressed. She received systemic adjuvant therapy with 4 cycles of AC, followed by weekly Taxol with Herceptin for 12 weeks then completed 1 year of adjuvant Herceptin by June 2012. He did receive adjuvant radiation therapy. Her care was at [facility]. He has been on surveillance since. She has recently moved to [facility] and wishes to transfer care close to residence Health History: Past Medical History (Last Updated 04/21/18 @ 10:19 by Ashley Izquierdo) Cancer of left breast (Acute) Depression (Acute) Past Surgical History (Last Updated 04/21/18 @ 10:19 by Ashley Izquierdo) History of lumpectomy (Acute) Allergies/Adverse Reactions: Allergy/AdvReac Type Severity Reaction Status Date / Time No Known Allergies Allergy Unverified 04/25/18 10:10 Risk Factors Tobacco Risk Data: Tobacco Risk Smoking Status Type of tobacco: Smokeless tobacco usage: Items/Day: Year started: Years used: Counseled to quit/cut down: Reason for no counseling performed: Reason for no pharmacotherapy: Tobacco use comments: Passive smoke exposure: Substance Risk Drug use: Caffeine use [drinks/day]: Alcohol use: Type of alcohol: Drinks per day: Has patient felt the need to cut down: Has the patient been annoyed by complaints: Has the patient felt guilty about drinking: Has the patient needed an eye certified adapted physical educator in the mornings: Comments: Review of Systems Constitutional:: Denies: Fever, Sweats, Weight loss, Appetite change, Chills Cardiovascular:: Denies: Chest pain, Palpitations, Dyspnea on exertion, Orthopnea, PND, Shortness of breath Respiratory: Denies: Cough, Hemoptysis, Shortness of Breath, Wheezing Gastrointestinal:: Denies: Abdominal pain, Nausea, Vomiting, Diarrhea, Constipation, Hematochezia Genitourinary: Denies: Dysuria, Hematuria, 15, Flank pain Musculoskeletal:: Denies: Back pain, Myalgia, Arthralgia Skin: Denies: Rash, Skin Changes, Wounds Neurological:: Denies: Headache, Dizziness, Visual changes, Tinnitus, Hearing loss Psychiatric: Denies: Anxiety, Depression, Homicidal Ideations, Suicidal Ideations Comment: Painless lump in the right breast, recently failed, consulted with primary oncologist who advised close follow-up rather than biopsy felt like a cyst - Physical Exam General: Alert, Oriented x3, No apparent distress, - - ECOG 0 HEENT: Atraumatic, PERRLA, EOMI, Normocephalic Oropharynx:: Dry mucosa Neck:: Supple, Trachea midline. Negative for: JVD, bilateral Cardiac:: Regular rate, Regular rhythm, Normal S1, Normal S2. Negative for: Murmur Lungs: Clear to auscultation, Excusion symmetrical. Negative for: Rhonchi, Wheezes Abdomen:: Soft, Non-tender, Non-distended. Negative for: Hepatosplenomegaly Extremities:: Negative for: Cyanosis, Edema Neurological: Neuro grossly intact Skin:: Negative for: Lesions, Rash, Petechiae, Ecchymosis Psychiatric:: Appropriate affect, Euthymic Lymphatics:: Negative for: Cervical lymphadenopathy, Supraclavicular lymphadenopathy, Axillary lymphadenopathy Breast:: - - Left breast with scar of prior surgery with surrounding induration and radiation deras but no definite masses. Right breast with a 1 cm nodule in the periareolar area. No nipple or skin retraction Diagnostic Data: Last mammogram May 07, 2017 reporting no evidence for malignancy. Assessment and Plan 68-year-old female with 1-newly felt nodule in the right breast, need further workup with mammography and ultrasound and depending on findings may proceed to biopsy. 2. 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 Her adjuvant treatment was concluded June 2012. Comorbid conditions: Osteopenia (last bone density May 2017) on vitamin D and calcium. Primary Care Provider: Dalton Bonilla MD Referring Provider: 04/25/18 1050 <Electronically signed by Wendi Bhat MD> Date Wendi Bhat MD Cosigner Signature: Date (if applicable) CC: Dalton Bonilla MD; Wendi Bhat MD Signed CBC WITH DIFFERENTIAL Collected: 02/22/2018 Status: F Source[place] 1[place] [facility] [place] CODE TESTS RESULT OUT OF REFERENCE UNITS RANGE LAB 6690-2(DEBRA 4.80-10.80 10E3/uL NC) WBC # Bld Auto 6.46 LAB 789-8(LOIN 4.00-6.30 10E6/uL C) RBC # Bld Auto 4.52 LAB 718-7(LOIN 12.0-16.0 g/dL C) Hgb Bld-mCnc 13.8 LAB 4544-3(DEBRA 37.0-47.0 % NC) Hct VFr Bld Auto 40.6 LAB 787-2(LOIN 80.0-100.0 fL C) MCV RBC Auto 89.8 LAB 785-6(LOIN 27.0-31.0 pg C) MCH RBC Qn Auto 30.5 LAB 786-4(LOIN 32.0-36.0 g/dL C) MCHC RBC Auto-mCnc 34.0 LAB 96621-0(LO 36.4-46.3 fL INC) RDW RBC Auto 42.4 LAB 777-3(LOIN 130-400 10E3/uL C) Platelet # Bld Auto 255 LAB 46410-0(LO 9.0-13.0 fL INC) PMV Bld Auto 9.6 LAB 770-8(LOIN 50.0-70.0 % C) Neutrophils/leuk 50.1 NFr Bld Auto LAB 736-9(LOIN 20.0-40.0 % C) Lymphocytes NFr Bld Auto 35.6 LAB 5905-5(DEBRA <=8.0 % NC) Monocytes NFr High Bld Auto 8.7 LAB 713-8(LOIN <=10.0 % C) Eosinophil NFr Bld Auto 3.7 LAB 706-2(LOIN <=2.0 % C) Basophils NFr Bld Auto 1.7 LAB 85222-1(LO <=1.50 % INC) Imm Granulocytes/leuk 0.20 NFr Bld Auto LAB 751-8(LOIN 1.40-6.50 10E3/uL C) Neutrophils # Bld Auto 3.24 LAB 731-0(LOIN 1.20-3.40 10E3/uL C) Lymphocytes # Bld Auto 2.30 LAB 742-7(LOIN 0.10-0.60 10E3/uL C) Monocytes # Bld Auto 0.56 LAB 711-2(LOIN <=0.70 10E3/uL C) Eosinophil # Bld Auto 0.24 LAB 704-7(LOIN <=0.70 10E3/uL C) Basophils # Bld Auto 0.11 LAB 78955-9(LO <=0.10 10E3/uL INC) Imm Granulocytes # Bld 0.01 Auto LAB 771-6(LOIN <=0.10 10E3/uL C) nRBC # Bld Auto 0.00 Performed By: #### 35741-6 #### [facility] [address] [place] [id number] Humanities And Languages Professor - Vonnie LAKHANI [id number] COMPREHENSIVE METABOLIC Collected: 02/22/2018 Status: F Source: [place] PANEL 1:40 PM [facility] [place] TYPE CODE TESTS RESULT OUT OF REFERENCE UNITS RANGE LAB 2951-2(LO 136-145 mmol/L INC) 140 Sodium SerPl-sCnc LAB 2823-3(LO 3.5-5.1 mmol/L INC) 4.0 Potassium SerPl-sCnc LAB 2075-0(LO 98-107 mmol/L INC) 104 Chloride SerPl-sCnc LAB 2028-9(LO 21-32 mmol/L INC) 29 CO2 SerPl-sCnc LAB 3094-0(LO 7-17 mg/dL INC) 19 High BUN SerPl-mCnc LAB 2160-0(LO 0.51-0.95 mg/dL INC) 0.90 Creat SerPl-nc LAB 80266-1(L >=59 mL/min OINC) >=59 GFR/BSA.pred SerPl MDRD-ArVRat LAB 2345-7(LO 74-106 mg/dL INC) 81 Glucose SerPl-mCnc LAB 85657-8(L 8.5-10.1 mg/dL OINC) 9.3 Calcium SerPl-mCnc LAB 1975-2(LO 0.2-1.0 mg/dL INC) 0.6 Bilirub SerPl-mCnc LAB 2885-2(LO 6.4-8.2 g/dL INC) 7.6 Prot SerPl-mCnc LAB 1751-7(LO 3.4-5.0 g/dL INC) 3.9 Albumin SerPl-nc LAB 02199-9(L <=15.0 mmol/L OINC) 7.0 Anion Gap3 SerPl-sCnc LAB 6768-6(LO 50-136 U/L INC) 93 ALP SerPl-cCnc LAB 1920-8(LO 15-37 U/L INC) 14 Low AST SerPl-cCnc LAB 1742-6(LO 14-59 U/L INC) 21 ALT SerPl-cCnc LAB HGFR(LOIN C) GLOMERULAR HGFR FILTRATION RATE INTERPRETATION~The eGFR is calculated using the MDRD equation.~This equation has been validated in patients with chronic kidney disease;~however, it underestimates the GFR in healthy patients with GFR's over 60 mL/min.~The equation is not valid in children under the age of 18.~NOTE: Criteria for Chronic Kidney Disease:~ ~1. Kidney damage for at least three months, as defined~by structural or functional abnormalities of the kidney,~with or without decreased glomerular filtration rate, manifested by either:~* Pathological abnormalities or~* Markers of Kidney damage, including abnormalities in~the composition of the blood or urine or abnormalities in imaging tests.~ ~2. GFR <60 mL/min/1.73 m squared for at least three months, with or without kidney damage.~ Performed By: #### 90647-4 #### [place] [address] [place] [address] Humanities And Languages Professor - Vonnie LAKHANI [id number] [place] 27 29 Collected: 02/22/2018 Status: F Source: [facility] 1:40 PM HOSPITAL REPOSITORY TYPE CODE TESTS RESULT OUT OF RANGE REFERENCE UNITS LAB 833299(LOIN 0.0-38.6 U/mL C) 23791-4 31.8 Result Comment: EnzymeRxaur/ACS methodology Performed By: #### [id number] #### Performed for [place] [address] COMPREHENSIVE METABOLIC Collected: 08/31/2017 Status: F Source: [facility] 1:22 PM [facility] [place] TYPE CODE TESTS RESULT OUT OF REFERENCE UNITS RANGE LAB 2951-2(LO 136-145 mmol/L INC) 140 Sodium SerPl-sCnc LAB 2823-3(LO 3.5-5.1 mmol/L INC) 4.1 Potassium SerPl-sCnc LAB 2075-0(LO 98-107 mmol/L INC) 105 Chloride SerPl-sCnc LAB 2028-9(LO 21-32 mmol/L INC) 30 CO2 SerPl-sCnc LAB 3094-0(LO 7-17 mg/dL INC) 21 High BUN SerPl-mCnc LAB 2160-0(LO 0.51-0.95 mg/dL INC) 0.79 Creat SerPl-nc LAB 76656-5(L >=59 mL/min OINC) >=59 GFR/BSA.pred SerPl MDRD-ArVRat LAB 2345-7(LO 74-106 mg/dL INC) 94 Glucose SerPl-nc LAB 22281-2(L 8.5-10.1 mg/dL OINC) 9.3 Calcium SerPl-mCnc LAB 1975-2(LO 0.2-1.0 mg/dL INC) 0.4 Bilirub SerPl-nc LAB 2885-2(LO 6.4-8.2 g/dL INC) 7.5 Prot SerPl-mCnc LAB 1751-7(LO 3.4-5.0 g/dL INC) 3.6 Albumin SerPl-nc LAB 09838-5(L <=15.0 mmol/L OINC) 5.0 Anion Gap3 SerPl-sCnc LAB 6768-6(LO 50-136 U/L INC) 90 ALP SerPl-cCnc LAB 1920-8(LO 15-37 U/L INC) 19 AST SerPl-cCnc LAB 1742-6(LO 14-59 U/L INC) 19 ALT SerPl-cCnc LAB HGFR(LOIN C) GLOMERULAR HGFR FILTRATION RATE INTERPRETATION~The eGFR is calculated using the MDRD equation.~This equation has been validated in patients with chronic kidney disease;~however, it underestimates the GFR in healthy patients with GFR's over 60 mL/min.~The equation is not valid in children under the age of 18.~NOTE: Criteria for Chronic Kidney Disease:~ ~1. Kidney damage for at least three months, as defined~by structural or functional abnormalities of the kidney,~with or without decreased glomerular filtration rate, manifested by either:~* Pathological abnormalities or~* Markers of Kidney damage, including abnormalities in~the composition of the blood or urine or abnormalities in imaging tests.~ ~2. GFR <60 mL/min/1.73 m squared for at least three months, with or without kidney damage.~ Performed By: #### 44376-4 #### [place] [id number] [place], [place] [address] Humanities And Languages Professor - Vonniearian ArroyoVargasjayshree LAKHANI [id number] CBC WITH MANUAL Collected: 08/31/2017 Status: F Source: [place] 1:22 PM [facility] [place] TYPE CODE TESTS RESULT OUT OF REFERENCE UNITS RANGE LAB 6690-2(LO 4.80-10.80 10E3/uL INC) WBC # Bld Auto 5.00 LAB 789-8(DEBRA 4.00-6.30 10E6/uL NC) RBC # Bld Auto 4.33 LAB 718-7(DEBRA 12.0-16.0 g/dL NC) Hgb Bld-mCnc 13.2 LAB 4544-3(LO 37.0-47.0 % INC) Hct VFr Bld Auto 39.7 LAB 787-2(DEBRA 80.0-100.0 fL NC) MCV RBC Auto 91.7 LAB 785-6(DEBRA 27.0-31.0 pg NC) MCH RBC Qn Auto 30.5 LAB 786-4(DEBRA 32.0-36.0 g/dL NC) MCHC RBC 33.2 Auto-mCnc LAB 08756-3(L 36.4-46.3 fL OINC) RDW RBC Auto 42.5 LAB 777-3(DEBRA 130-400 10E3/uL NC) Platelet # Bld 214 Auto LAB 02320-2(L 9.0-13.0 fL OINC) PMV Bld Auto 9.4 LAB HDIFF(DEBRA NC) HDIFF MANUAL DIFFERENTIAL LAB 769-0(DEBRA 50-70 % NC) Neuts Seg NFr Bld 59 Manual LAB 764-1(DEBRA <=10 % NC) Neuts Band NFr 1 Bld Manual LAB 80096-6(L NONE SEEN OINC) Neut Vac+Seg Bld Ql LAB 737-7(DEBRA 20-40 % NC) Lymphocytes NFr 26 Bld Manual LAB 53965-2(L NONE SEEN OINC) Variant Lymphs Bld Ql Auto LAB 7798-2(LO NONE SEEN INC) Smudge Cells Bld Ql Smear LAB 744-3(DEBRA 0-8 % NC) Monocytes NFr Bld 8 Manual LAB 714-6(DEBRA 0-10 % NC) Eosinophil NFr 6 Bld Manual LAB 707-0(DEBRA 0-2 % NC) Basophils NFr Bld 0 Manual LAB 740-1(DEBRA <=1 % NC) Metamyelocytes 0 NFr Bld Manual LAB 749-2(DEBRA % NC) Myelocytes NFr 0 Bld Manual LAB 783-1(DEBRA % NC) Promyelocytes NFr 0 Bld Manual LAB 709-6(DEBRA <=1 NC) Blasts NFr Bld Manual LAB 66721-9(L NONE SEEN OINC) Plasma Cells Bld Ql Smear LAB 753-4(DEBRA 1.4-6.5 10E3/uL NC) Neutrophils # Bld 3.0 Manual LAB 732-8(DEBRA 1.2-3.4 10E3/uL NC) Lymphocytes # Bld 1.3 Manual LAB 743-5(DEBRA 0.1-0.6 10E3/uL NC) Monocytes # Bld 0.4 Manual LAB 712-0(DEBRA 0.0-0.7 10E3/uL NC) Eosinophil # Bld 0.3 Manual LAB 705-4(DEBRA 0.0-0.7 10E3/uL NC) Basophils # Bld 0.0 Manual LAB 94423-6(L <=0.10 10E3/uL OINC) Imm Granulocytes 0.00 # Bld LAB 773-2(DEBRA <=5 NC) nRBC/100 RBC NFr Bld Manual LAB HSCAN(DEBRA NC) HSCAN RBC MORPHOLOGY SCAN LAB 702-1(DEBRA NONE SEEN NC) Anisocytosis Bld Ql Smear LAB 741-9(DEBRA NONE SEEN NC) Microcytes Bld Ql Smear LAB 738-5(DEBRA NONE SEEN NC) Macrocytes Bld Ql Smear LAB 728-6(DEBRA NONE SEEN NC) Hypochromia Bld Ql Smear LAB 70272-3(L NONE SEEN OINC) Polychromasia Bld Ql Smear LAB 7797-4(LO NONE SEEN INC) Rouleaux Bld Ql Smear LAB 7789-1(LO NONE SEEN INC) Acanthocytes Bld Ql Smear LAB 7790-9(LO NONE SEEN INC) Donner Cells Bld Ql Smear LAB 774-0(DEBRA NONE SEEN NC) Ovalocytes Bld Ql Smear LAB 800-3(DEBRA NONE SEEN NC) Schistocytes Bld Ql Smear LAB 801-1(DEBRA NONE SEEN NC) Sickle Cells Bld Ql Smear LAB 802-9(DEBRA NONE SEEN NC) Spherocytes Bld Ql Smear LAB 46175-6(L NONE SEEN OINC) Stomatocytes Bld Ql Smear LAB 65495-0(L NONE SEEN OINC) Targets Bld Ql Smear LAB 7791-7(LO NONE SEEN INC) Dacryocytes Bld Ql Smear LAB 47520-7(L NONE SEEN OINC) Cristian Bodies Bld Ql Smear LAB 703-9(DEBRA NONE SEEN NC) Baso Stipl Bld Ql Smear LAB 46262-6(L NONE SEEN OINC) Whittier rings Bld Ql Smear LAB 7792-5(LO NONE SEEN INC) Dohle Bod Bld Ql Smear LAB 22414-8(L NONE SEEN OINC) Alban Bod Bld Ql LAB 7793-3(LO NONE SEEN INC) [place]ft Bod Bld Ql Smear LAB 7795-8(LO NONE SEEN INC) Pappenheimer Bod Bld Ql Smear LAB 803-7(DEBRA NONE SEEN NC) Toxic Granules Bld Ql Smear LAB 13743-8(L NONE SEEN OINC) WBC toxic vacuoles Bld Ql Smear LAB 5908-9(LO NONE SEEN INC) Giant Platelets Bld Ql Smear LAB 7796-6(LO NONE SEEN INC) Platelet Clump Bld Ql Smear LAB 76300-1(L NONE SEEN OINC) Plat morph Bld Performed By: #### 02691-8 #### [address] [place] [address] Humanities And Languages Professor - Vonnie LAKHANI [id number] Performed for [address] [address] [place] 27 29 Collected: 08/31/2017 Status: F Source: [facility] 1:22 PM HOSPITAL REPOSITORY TYPE CODE TESTS RESULT OUT OF RANGE REFERENCE UNITS LAB 591741(LOIN 0.0-38.6 U/mL C) 06326-0 32.3 Result Comment: Madeline Centaur/ACS methodology Performed By: #### [id number] #### Performed for [address] [address] DEXA BONE DENSITY Observed: 06/10/2017 Status: F Source: [facility] 2:02 PM HOSPITAL REPOSITORY DEXA BONE DENSITY, 06/10/2017 2:02 PM CLINICAL HISTORY: Asymptomatic menopausal state. Personal history of breast cancer, chemotherapy, radiation therapy. COMPARISON EXAMINATION: None. FINDINGS: LUMBAR SPINE: There is levoconvex lumbar scoliosis. L3 and L4 are excluded given artifactual elevation of bone density. Average bone mineral density: 0.989 g/sq cm. Bone mineral density as a percentage of young adult reference population: 84%. Bone mineral density as a percentage of age-matched reference population: 101%. T-score: -1.5. Z-score: 0.1. LEFT FEMORAL NECK: Average bone mineral density: 0.735 g/sq cm. Bone mineral density as a percentage of young adult reference population: 71%. Bone mineral density as a percentage of age-matched reference population: 89%. T-score: -2.2. Z-score: -0.6. RIGHT FEMORAL NECK: Average bone mineral density: 0.768 g/sq cm. Bone mineral density as a percentage of young adult reference population: 74%. Bone mineral density as a percentage of age-matched reference population: 94%. T-score: -1.9. Z-score: -0.4. IMPRESSION: 1. Bone mineral density of the lumbar spine is consistent with osteopenia at the expected rate of bone loss for patient age with T-score of -1.5 and a Z-score of 0.1. 2. Bone mineral density of the left femoral neck is consistent with osteopenia at the expected rate of bone loss for patient age with T-score of -2.2 and a Z-score of -0.6. 3. Bone mineral density of the right femoral neck is consistent with osteopenia at the expected rate of bone loss for patient age with T-score of -1.9 and a Z-score of -0.4. ALLERGIES ALLERGIES DATE TYPE / CODE NAME / CODE REACTION SEVERITY SOURCE 05/31/2018 Drug No Known Unknown [facility] Allergy/4160 Allergies/F00 [place] [address](SNOMED 7974748(RXNOR Repository CT) M) 03/20/2015 Drug No Known Drug UNKNOWN [facility] Allergy/4160 Allergies/900 Hospital [facility] [place](SNOMED 590(RXNORM) Repository CT) ENCOUNTERS ENCOUNTERS ADMIT/DISCHARGE ACCOUNT ADMITTING ENCOUNTER LOCATION SOURCE NUMBER CLASS 06/07/2018/06/07/20 [id number] Ambulatory [address] Hospital ing:SDCRoom: Repository AC06 05/31/2018 [id number] Ambulatory [facility] ing:ONC Repository 05/20/2018 [id number] Ambulatory [facility] ing:MRI Repository 05/18/2018/05/18/20 [id number] Ambulatory BMSBuilding:B [place] 18 MS.[facility] [place] [place] Repository 05/10/2018 [id number] Ambulatory BMSBuilding:B [place] MS.CF.[facility] Repository 05/10/2018/05/10/20 [id number] Ambulatory BMSBuilding:B [place] 18 MS.[facility] Repository 05/03/2018 [id number] [facility] ing:LABSPEC Repository 05/03/2018/05/03/20 [id number] Ambulatory BMSBuilding:B [place] 18 MS.[facility] Repository 05/02/2018 [id number] Ambulatory BMSBuilding:B [place] MS.CF.[facility] Repository 05/02/2018 [id number] [facility] Live[facility]: MED ONC 04/28/2018 [id number] Ambulatory [facility] Hospital ing:OPBI Repository 04/25/2018 [id number] Ambulatory BMSBuilding:B [place] MS.CF.[facility] Repository 06/10/2017/06/10/20 [id number] MINH WILKINS, Ambulatory [address] - Repository LiveBuilding: KMP RAD 04/12/2017/03/22/[address] [id number] [address] - Repository LiveBuilding: OUTPATIENT PAYERS PAYERS ENCOUNTER GUARANTOR PAYER SUBSCRIBER SOURCE 06/07/2018 ARANZA [id number] Insurance:JOANN MIRANDA: [facility] [facility] [place]: [id number] [id number] Repository [address]Vil: (330) Date:9360-16-17ZC [phone] (HP) [id number] RODNEY MEJIA [address]JX: 06/07/2018 Secondary NOT GIVENUNK [place] Insurance:SELF PAY [facility] Number: Effective Repository Date:2018-05-25 05/31/2018 ARANZA B Primary ARANZA B [place] [id number] Insurance:AETNA MENDENHALLDOB: Community [facility] [facility] Number: [id number], [place] [id number] Repository [address]Fzg: (330) Date:2008-15-40XQ [phone] (HP) [id number] R[place] MEJIA [address]HS: 05/31/2018 Secondary NOT GIVENUNK [place] Insurance:SELF PAY [facility] Number: Effective Repository Date:2018-04-20 05/20/2018 ARANZA B Primary ARANZA B [place] [id number] Insurance:AETNA MENDENHALLDOB: Community [facility] [facility] Number: [id number] [id number] Repository [address]Ykr: ([phone]) Date:1880-03-41DS [phone] (HP) [id number] R[place] MEJIA [address]LD: 05/20/2018 Secondary NOT GIVENUNK [place] Insurance:SELF PAY [facility] Number: Effective Repository Date:2018-05-10 05/18/2018 ARANZA B Primary ARANZA B [place] [id number] Insurance:AETNA MENDENHALLDOB: Community [facility] [facility] Number: [id number], [place] [id number] Repository [address]Sgq: ([phone]) Date:6471-31-45RD [phone] (HP) [id number] LAGUERRE [address]IK: 05/18/2018 Secondary NOT GIVENUNK [place] Insurance:SELF PAY [facility]: Effective Repository Date:2018-04-20 05/10/2018 ARANZA B Primary ARANZA B [place] [id number] Insurance:AETNA MENDENHALLDOB: Community [facility] [facility] Number: [id number], [place] [id number] Repository [address]Jvc: (330) Date:3083-27-18LL [phone] (HP) [id number] [place] [address]KR: 05/10/2018 Secondary NOT GIVENUNK [place] Insurance:SELF PAY [facility] Number: Effective Repository Date:2018-05-10 05/10/2018 ARANZA B Primary ARANZA B [place] [id number] Insurance:AETNA MENDENHALLDOB: Community [facility] [facility] Number: [id number], [place] [id number] Repository [address]Clx: ([phone]) Date:5953-22-56ON [phone] (HP) [id number] [place] [address]CD: 05/10/2018 Secondary NOT GIVENUNK [place] Insurance:SELF PAY [facility] Number: Effective Repository Date:2018-05-10 05/03/2018 ARANZA B Primary ARANZA B [place] [id number] Insurance:AETNA MENDENHALLDOB: Community [facility] [facility] Number: [id number], [place] [id number] Repository [address]Qgq: (330) Date:3713-27-24SA [phone] (HP) [id number] [place] [address]SY: 05/03/2018 Secondary NOT GIVENUNK [place] Insurance:SELF PAY [facility] Number: Effective Repository Date:2018-05-03 05/03/2018 ARANZA B Primary ARANZA B [place] [id number] Insurance:AETNA MENDENHALLDOB: Community [facility] [facility] Number: [id number], [place] [id number] Repository [address]Xuj: (330) Date:8925-56-92DZ [phone] (HP) [id number] [address]MS: 05/03/2018 Secondary NOT GIVENUNK [place] Insurance:SELF PAY [facility] Number: Effective Repository Date:2018-05-03 05/02/2018 ARANZA B Primary ARANZA B [place] [id number] Insurance:AETNA MENDENHALLDOB: Community [facility] [facility] Number: [id number], [place] [id number] Repository [address]Ufs: (330) Date:2999-31-49DM [phone] (HP) [phone] [place] [address]FQ: 05/02/2018 Secondary NOT GIVENUNK [place] Insurance:SELF PAY [facility] Number: Effective Repository Date:2018-05-02 05/02/2018 ARANZA B Primary ARANZA B Fox [facility] MENDENHALLDOB: Insurance:AETNA MENDENHALLDOB: Hospital MEDICAREPolic [id number] Repository [place] Number: [address] [place], [place] [id number] [place], [place] [address]Qcx: (330) Date:0027-68-92LO [phone] (HP) [id number], [place] [address]RJ: 04/28/2018 ARANZA B Primary ARANZA B [place] [id number] Insurance:AETNA MENDENHALLDOB: Community [facility] [facility] Number: [id number], [place] [id number] Repository [address]Gaj: (330) Date:3422-53-19UE [phone] (HP) [id number] [place] [address]MH: 04/28/2018 Secondary NOT GIVENUNK [place] Insurance:SELF PAY [facility] Number: Effective Repository Date:2018-04-26 04/25/2018 ARANZA B Primary ARANZA B [place] [id number] Insurance:AETNA MENDENHALLDOB: [facility] Number: [id number] [facility] [place], [place] [id number] Repository [address]Wpv: ([phone]) Date:1601-37-73DZ [phone] (HP) [id number] [place] [address]ES: 04/25/2018 Secondary NOT GIVENUNK [place] Insurance:SELF PAY [facility] Number: Effective Repository Date:2018-04-25 06/10/2017 ARANZA B Primary ARANZA B Fox [facility] MENDENHALLDOB: Insurance:AETNA MENDENHALLDOB: Hospital MEDICAREPolicy [id number] Repository [address] Number: [address], [place] [id number] [place], [place] [address]Rdy: [phone]) Date:0204-57-16LV [address] [phone] () [id number] [place], [place] [address]ML: 04/12/2017 ARAZNA B Primary ARANZA B Fox [facility] MENDENHALLDOB: Insurance:AETNA MENDENHALLDOB: Hospital MEDICAREPolicy [id number] Repository [address] Number: [address], [place] [id number] [place], [place] [address]Lma: [phone] Date:1734-21-88FO [address] [phone] (HP) [id number] [place] [address]YT:
== END ==
PROVIDERS: Family Provider Internal Medicine; PCP Internal Medicine; Referring Provider Surgery; Visit Provider Surgery
DX: C50.912 Malignant neoplasm of unspecified site of left female breast (principal)
CPT/HCPCS: 77059; A9585; A4216; C8908

== ENCOUNTER 2018-06-07 07:19 | Day surgery (SDC) | payer MEDICARE, SELFPAY ==
[2018-05-18 13:46] VITALS: BMI 25.3
--- NOTE | 2018-06-07 | IMM_PTH ---
PATIENT: ARANZA BAILON LOC: [facility] [place] U#:[id number] AGE/SX: 68/F ROOM: RE06/07/[address]: Dr. Yuliya Knox MD : 1950 BED: DIS: 06/07/2018 SPEC #: [id number] RECD: 06/10/18 14:34 STATUS: EDENILSON REQ #: [id number] HARPREET: 06/07/18 00:[address]: Yuliya Knox DEPT: IMMUNOHISTOCHEMISTRY RECD BY: Lorin Lovelace ENTERED: 06/10/18 14:35 SP TYPE: IMMUNO OTHR DR: Dr. Dalton Bonilla MD Tissues: A - Axillary lymph node, NOS B - Right breast, NOS Procedures: Calponin-1(initial) CK7 (add) Pankeratin (initial) P40 (add) PHYSICIAN & INSTITUTION [place] [id number] SPECIMEN INFORMATION: Tissue Source: A - Right axillary sentinel lymph node tissue, B - Right breast lumpectomy tissue Clinical Info: Right breast cancer Specimen Number: [id number] A1 & B10 CPT code: 01758 x2, 26924 x2 METHODOLOGY: Deparaffinized sections of prefer/formalin-fixed tissue or PAP/DQ stained slides are incubated with monoclonal/polyclonal antibodies/oligonucleotide probes. Localization is made via biotin free immunoperoxidase method. Appropriate controls are performed and reacted as expected. Results on target cell population are indicated in the following table: RESULTS: ANTIBODY / CLONE RESULT Block A1 AE1-3 (AE1/AE3/PCK26) negative CK7 (OV-TL12/30) negative Block B10 P40 (BC28) negative Calponin-1 (XK705E) negative These tests were developed and their performance characteristics determined by [facility]. They may not have been cleared or approved by the U.S. Food and Drug Administration. The FDA has determined that such clearance or approval is not necessary. INTERPRETATION: A. Right axillary sentinel lymph node tissue, biopsy: One lymph node, negative for metastatic carcinoma. B. Right breast lumpectomy tissue: Invasive ductal carcinoma. SJ:clayton 06/13/18
--- NOTE | 2018-06-07 | AXNB_PTH ---
PATIENT: ARANZA BAILON [place] [facility] [place][id number] AGE/SX: 68/F ROOM: RE06/07/[address]: Dr. Yuliya Knox MD : 1950 BED: DIS: 06/07/2018 SPEC #: [id number] RECD: 06/07/18 10:55 STATUS: EDENILSON RETerri #: [id number] HARPREET: 06/07/18 00:[address]: Yuliya Knox DEPT: SURGICAL PATHOLOGY RECD BY: Lorin Lovelace ENTERED: 06/07/18 11:43 SP TYPE: AX NODE BX OTHR DR: Dr. Dalton Bonilla MD Tissues: A - Axillary lymph node, NOS B - Right breast, NOS C - Right breast, NOS D - Right breast, NOS Procedures: Frozen Section (charge) Frozen Section Add'l ([facility]) Surgery Specimen Level IV Surgery Specimen Level V Frozen (no charge) HEADER OPERATION: Right ultrasound-guided needle localization, lumpectomy PRE-OP DIAGNOSIS: Right breast cancer; primary cancer left breast ER negative, MA negative, HER2 overexpressed; regional lymph node metastasis TISSUE SUBMITTED: A - Right axillary sentinel lymph node tissue for FS at 1050, B - Right breast lumpectomy tissue, long suture is lateral, short suture is inferior, to mammo at 1119, C - Right breast tissue, double short suture deras new medial margin, short suture deras superior, D - Right breast tissue, single long is new lateral margin, short single is superior FROZEN SECTION DIAGNOSIS A. Right axillary sentinel lymph node tissue, biopsy: One out of two lymph nodes, positive for metastatic carcinoma. SJ:clayton 06/07/18 Case has been reviewed in consultation with Dr. Sauceda who concurs with the above diagnosis. IDC:AM MICROSCOPIC DIAGNOSIS A. Right axillary sentinel lymph node tissue, biopsy: One out of two lymph nodes, positive for metastatic carcinoma. See comment. B. Right breast, lumpectomy: Invasive ductal carcinoma. See cancer summary below. C. Right breast tissue, new medial margin: A piece of benign breast tissue with focal dense fibrosis, negative for carcinoma. D. Right breast tissue, additional new lateral margin: A piece of benign breast tissue with focal dense fibrosis and intraductal hyperplasia without atypia, negative for carcinoma. SJ: 06/13/18 INVASIVE BREAST CANCER SUMMARY: Specimen - partial breast (including nipple and skin). Procedure - excision with wire-guided localization (including nipple and skin). Lymph node sampling - sentinel lymph nodes Specimen integrity - multiple designated specimens Specimen size - lumpectomy specimen 6 x 4.5 x 2 cm and additional medial margin 3.5 x 2.5 x 1 cm and additional lateral margin 3 x 1.5 x 1 cm. Specimen laterality - right Tumor site - not specified Tumor size - 1.6 x 1.6 x 1.5 cm Tumor focality - single focus of invasive carcinoma. Macroscopic and Microscopic extent of tumor: Skin - invasive carcinoma does not invade into the dermis or epidermis. Nipple - ductal carcinoma in situ does not involve the nipple epidermis. Skeletal muscle - no skeletal muscle present. Ductal carcinoma in situ (DCIS) - no ductal carcinoma in situ is present. Lobular carcinoma in situ (LCIS) - not identified Histologic type of invasive carcinoma - invasive ductal carcinoma with focal area of micropapillary features. Histologic Grade (Rentz grade): Glandular/tubular differentiation - score 3 Nuclear pleomorphism - score 2 Mitotic count - score 1 Overall grade - 2 (score of 6) Margins - Margins uninvolved by invasive carcinoma. Invasive carcinoma is 0.5 cm away from the closest inferior margin. Treatment effect: Response to presurgical (neoadjuvant) therapy - no known presurgical therapy. Lymph-Vascular invasion - not identified Dermal lymph-vascular invasion - not identified Lymph nodes: Number of sentinel lymph nodes examined - 2 Total number of lymph nodes examined (sentinel and nonsentinel) - 2 Number of lymph nodes with macrometastases - 1 Number of lymph nodes with micrometastases and isolated tumor cells - 0 Size of largest metastatic deposit (if present) - 0.4 cm Extranodal extension - present, focal Method of evaluation of sentinel lymph nodes - H & E, multiple levels and IHC. Distant metastasis - not applicable Additional pathologic findings - dense fibrosis and fibrocystic changes Ancillary studies - previously performed on section of tumor ([id number] / [id number]). ER - positive (>95%, strong) MA - positive (>95%, strong) Her2 abril - negative (0-1+) Microcalcifications - present in invasive carcinoma. Clinical history - Please make reference to previous specimen ([id number]) right breast, ultrasound-guided core biopsy with diagnosis of invasive ductal carcinoma. PATHOLOGIC STAGE: pT1c pN1a Mx The above summary is in compliance with [employer] [place] (CAP) Cancer Protocols Checklist and [place] [employer] Committee on Cancer (AJCC), Staging Manual, 8th Ed. COMMENT A. The largest focus of metastasis measures 0.4 cm in greatest dimension. Focal extranodal extension is noted. One lymph node is negative for metastatic carcinoma on multiple H & E levels and also on immunohistochemical stain for cytokeratins ([id number]). MICROSCOPIC DESCRIPTION Slides are reviewed. GROSS DESCRIPTION A - Received fresh for frozen section diagnosis labeled with the patient's name is a specimen designated right axillary sentinel lymph node tissue. The specimen consists of a piece of adipose tissue containing two nodules consistent with lymph node measuring 3.5 x 1.5 x 0.5 cm. The lymph nodes measure 1 and 1.5 cm in greatest dimension. The entire specimen is submitted for frozen section diagnosis as follows: 1 - frozen section, one bisected lymph node, 2 - frozen section, one bisected lymph node. / SJ:rg 06/07/18 B - Received fresh for intraoperative consultation labeled with the patient's name and designated right breast lumpectomy tissue. The specimen consists of a piece of fibroadipose tissue with overlying skin ellipse and nipple and areola with needle localization measuring 6 x 4.5 x 2 cm. The nipple measures 1 cm in greatest dimension. The overlying skin ellipse measures 5.5 x 3 cm. The specimen is inked as follows: superior - blue, inferior - green, medial - red, lateral - orange and posterior - black. Serial sections reveal a gagnon, indurated tumor mass measuring 1.6 x 1.6 x 1.5 cm. This mass is 0.5 cm away from the closest inferior margin. This information is conveyed to the surgeon intraoperatively. Sections of the rest of the specimen reveal gagnon-yellow adipose cut surfaces mixed with gagnon-white fibrous area. Medical Coding Specialist sections are submitted in ten cassettes as follows: 1 - nipple and adjacent skin, nipple is entirely submitted, 2 - perpendicular medial, lateral and superior margins, 3-6 - tumor with closest inferior and posterior margins, 7-10 - payroll representative sections adjacent to and away from the tumor. Sections will be submitted after additional fixation. / : 06/08/18 C - Received in fixative is one container labeled with the patient's name and designated right breast tissue, double suture deras new medial margin, short suture deras superior margin. The specimen consists of a piece of yellow adipose tissue measuring 3.5 x 2.5 x 1 cm. The specimen is oriented as double short suture deras new medial margin and short suture deras superior margin. The specimen is inked as follows: new medial margin - red and superior margin - blue. The rest of the specimen is inked black. Serial sections do not reveal any mass lesion and shows gagnon-yellow adipose cut surfaces mixed with fibrous area. The entire specimen is submitted in five cassettes. Sections will be submitted after additional fixation. Cassette 1 also contains the most superior portion of the specimen. / : 06/08/18 D - Received in fixative is one container labeled with the patient's name and designated right breast tissue, single long is new lateral margin, short single is superior. The specimen consists of a piece of yellow fibroadipose tissue measuring 3 x 1.5 x 1 cm. The specimen is inked as follows: new lateral margin - orange, superior margin - blue, rest of the specimen - black. Sections reveal gagnon-yellow adipose cut surfaces with focal fibrous area. No mass lesion is identified. The entire specimen is submitted in two cassettes. Sections will be submitted after additional fixation. / : 06/08/18 TC:0 CPT: 95307 x2, 73054 x2, 13683, 77152, 74751
[2018-06-07 07:41] VITALS: BP 148/83; PULSE 102; RESP 14; TEMP 37.3; O2SAT 98; BMI 24.1
--- NOTE | 2018-06-07 07:44 | NM_ITS ---
PROCEDURE: NUCLEAR MEDICINE Injection [place] Node - RIGHT breast(s). REASON FOR EXAM: Female, 68 years old. Right breast cancer. TECHNIQUE: [place] node localization using radionuclide methods of the RIGHT breast(s) was performed following subcutaneous administration of 1.1 mCi of of sulfur colloid Tc-99m. FINDINGS: 1.1 mCi of technetium labeled sulfur colloid was injected in 4 equal aliquots in the inferolateral areolar region for sentinel node imaging. NM/Lymph Node Injection Only IMPRESSION: Injection of 1.1 mCi of technetium labeled sulfur colloid in 4 equal aliquots as described. Electronically Signed: Ismael Winters MD at 8:48 EST Tel [phone], Service support ,
[2018-06-07] MEDS: Isosulfan Blue 1% 5 ML Vial (10:00)
[2018-06-07] MEDS: Cefazolin 2 GM in 0.9% Normal Saline 100 ML IV (10:04)
--- NOTE | 2018-06-07 11:27 | BI_ITS ---
SURGICAL BREAST SPECIMEN RADIOGRAPH CLINICAL: Document presence of tissue clip marker in biopsy specimen. FINDINGS: Specimen shows presence of tissue clip marker. Electronically Signed: Ismael Winters MD at 12:45 EST Tel [phone], Service support , BI/Breast Biopsy Specimen
[2018-06-07] MEDS: Bupiv/Epi 0.5% Mpf 30 ML Vial (11:41)
--- NOTE | 2018-06-07 11:47 | OP.PCM_ITS ---
Report of Operation Date of Procedure: 06/07/18 Pre-Operative Diagnosis: Right invasive ductal carcinoma Post-Operative Diagnosis: Same, 1 out of 2 lymph nodes positive Surgery/Procedure Performed:: Right needle localization with ultrasound, right lumpectomy including the nipple areolar complex, right sentinel lymph node biopsy with nuclear tracer and blue dye mail clerks supervisor: Nathalie Bradley Type of Anesthesia:: General/Supplemental Anesthesiologist: Zac Nichols Special Medications: Ancef 2 g IV x1 Specimen's removed: Right partial mastectomy, right sentinel lymph nodes Estimated Blood Loss (mL): <10 cc Fluids Replaced: 1200 cc Description of Procedure: In radiology the breast tissue was injected with TC-9 9 sulfur colloid and preoperative needle localization. 90 minutes later the patient was taken to the operating room and general anesthesia was induced. 5 cc of Lymphazurin 1% blue dye was injected in the 4 quadrants periareolar along with 10 cc of normal saline. This was massaged gently for 8 minutes. The right breast and axilla were prepped and draped in usual sterile fashion. A timeout was completed verifying correct patient, procedure, site, positioning, special equipment prior to beginning procedure. Handheld gamma probe was used to identify the location of the hottest spot in the axilla. Prior to the incision, the counts were 116. The incision was made in the blue and hot nodes were identified. The probe was placed in contact with the node in the 10 count was 264 on one lymph node and 1187 on the other. The bed of the node measured 24 counts. No additional blue or hot nodes were detected. Frozen was 1 out of 2 nodes positive. Localization was completed using ultrasound guidance. The localization wire was placed at the inferior and deep margin of the mass. A elliptical incision was planned to include the nipple areolar complex as the mass was adjacent to the 6:00 border of the areolar. Flaps were raised in the location of the wire confirmed. The wire was delivered into the wound. 2 silk [id number] stay suture was placed around the wire and used for traction. Dissection was then taken down circumferentially, taking care to include the entire localization needle and wide margin of grossly normal tissue. The specimen and entire localizing wire were removed. The specimen was oriented and sent to radiology with the localization studies. Confirmation was received that the entire target lesion had been resected. The wound was irrigated. Hemostasis was checked. The breast and axillary wounds were closed with interrupted sutures of 2-0 Vicryl for the breast and 3-0 Vicryl for the axillary and subcuticular sutures of 4-0 Monocryl. A dressing of fluff gauze and supportive bra placed. The patient tolerated procedure well was taken to the postanesthesia care in stable condition. - Complications none
--- NOTE | 2018-06-07 11:49 | PCM.DC.GS ---
Discharge Diet: No Restrictions Discharge Activity: May not drive while taking narcotic pain medications. Lifting Restrictions: no lifting >15 lb on right x 2 weeks Call your doctor if your incision/area has: Continuous Slow Oozing, Sudden Increased Bleeding, Increased Pain/ Swelling, Increased Redness, Foul Smelling Discharge, Swelling at the incision site Call your doctor if you observe: Fever of 101 or Higher Remove Dressing in (days):: 2 Allergies/Adverse Reactions: Allergies No Known Allergies Allergy (Verified 05/31/18 08:06) Medications to take at Discharge Calcium Carbonate/Vitamin D3 [Calcium 600-Vit D3 200 Tablet] 2 tab PO DAILY 04/25/18 Natali-C 1,000 mg PO DAILY 04/25/18 Magnesium Oxide [Magnesium] 400 mg PO DAILY 04/25/18 Multivit with Calcium,Iron,Min [Multiple Vitamins For Women] 1 tab PO DAILY 04/25/18 [place]-3 Fatty Acids [Fish Oil] 1,200 mg PO DAILY 04/25/18 Acetaminophen/Diphenhydramine [Acetaminophen Pm Caplet] 1 each PO QHS 05/31/18 Oxycodone HCl/Acetaminophen [Percocet 5/325] 1 - 2 tablet PO Q6H PRN PRN 3 Days #15 tablet 06/07/18 Primary Care Physician: Dalton Bonilla MD [Primary Care Provider] - Test Results: Test results from this visit will be discussed in further detail at your follow-up appointment, if applicable. Please Follow Up With: Yuliya Knox MD - At the 5:00 and on the weekends call [phone] When: Call for follow-up appointment in 2 weeks Proposed Discharge Date: 06/07/18
--- NOTE | 2018-06-07 11:58 | DCINST_ITS ---
Discharge Diet: No Restrictions Discharge Activity: May not drive while taking narcotic pain medications. Lifting Restrictions: no lifting >15 lb on right x 2 weeks Call your doctor if your incision/area has: Continuous Slow Oozing, Sudden Increased Bleeding, Increased Pain/ Swelling, Increased Redness, Foul Smelling Discharge, Swelling at the incision site Call your doctor if you observe: Fever of 101 or Higher Remove Dressing in (days):: 2 Allergies/Adverse Reactions: Allergies No Known Allergies Allergy (Verified 05/31/18 08:06) Medications to take at Discharge Calcium Carbonate/Vitamin D3 [Calcium 600-Vit D3 200 Tablet] 2 tab PO DAILY 04/25/18 Natali-C 1,000 mg PO DAILY 04/25/18 Magnesium Oxide [Magnesium] 400 mg PO DAILY 04/25/18 Multivit with Calcium,Iron,Min [Multiple Vitamins For Women] 1 tab PO DAILY 04/25/18 [place]-3 Fatty Acids [Fish Oil] 1,200 mg PO DAILY 04/25/18 Acetaminophen/Diphenhydramine [Acetaminophen Pm Caplet] 1 each PO QHS 05/31/18 Oxycodone HCl/Acetaminophen [Percocet 5/325] 1 - 2 tablet PO Q6H PRN PRN 3 Days #15 tablet 06/07/18 Primary Care Physician: Dalton Bonilla MD [Primary Care Provider] - Test Results: Test results from this visit will be discussed in further detail at your follow- up appointment, if applicable. Please Follow Up With: Yuliya Knox MD - At the 5:00 and on the weekends call [phone] When: Call for follow-up appointment in 2 weeks Proposed Discharge Date: 06/07/18
[2018-06-07 12:15] VITALS: BP 148/83; BP 158/74; PULSE 72; RESP 16; TEMP 36.6; O2SAT 95
[2018-06-07 12:30] VITALS: BP 148/83; BP 163/74; PULSE 74; RESP 16; O2SAT 95
[2018-06-07 12:45] VITALS: BP 148/83; BP 164/74; PULSE 70; RESP 16; TEMP 36.6; O2SAT 95
[2018-06-07 14:06] VITALS: BP 142/83; BP 148/83; PULSE 70; RESP 18; TEMP 37.2; O2SAT 99
--- OUTSIDE RECORDS SUMMARY | 2018-09-08 12:30 | XMS RPT_ITS ---
:1950 Author Organization [place] Support Name Relationship Address Phone ARMANDO BAILON Unavailable [address] + [place] [address] R Unavailable Unavailable Unavailable ARMANDO BAILON Unavailable [phone] [place] [address] R Unavailable Unavailable Unavailable ARMANDO BAILON Unavailable [address] + [place] [address] R Unavailable Unavailable Unavailable ARMANDO BAILON Unavailable [phone] [place] [address] R Unavailable Unavailable Unavailable ARMANDO BAILON Unavailable [phone] [place] [address] R Unavailable Unavailable Unavailable ARMANDO BAILON Unavailable [phone] [place] [address] R Unavailable Unavailable Unavailable ARMANDO BAILON Unavailable [phone] [place] [address] R Unavailable Unavailable Unavailable ARMANDO BAILON Unavailable [phone] [place] [address] R Unavailable Unavailable Unavailable R Unavailable Unavailable Unavailable R Unavailable Unavailable Unavailable ARMANDO BALION Unavailable [phone] [place] [address] R Unavailable Unavailable Unavailable ARMANDO BAILON Unavailable [phone] [place] [address] R Unavailable Unavailable Unavailable ARMANDO BAILON Unavailable [phone] [place] [address] R Unavailable Unavailable Unavailable ARMANDO BAILON Unavailable [phone] [place] [address] R Unavailable Unavailable Unavailable ARMANDO BAILON Unavailable [address] + [place] [address] R Unavailable Unavailable Unavailable ARMANDO BAILON Unavailable [address] + [place] [address] R Unavailable Unavailable Unavailable Care Team Providers Name Role Phone Robotham, Yuliya Attending Unavailable Robotham, Yuliya Attending Unavailable Oleghe, Efewongbe Referring Unavailable Isckarus, Mansour Attending Unavailable Oleghe, Efewongbe Primary Care Unavailable Isckarus, Mansour Consulting Unavailable Devi, Crystal Attending Unavailable Oleghe, Efewongbe Primary Care Unavailable Isckarus, Mansour Consulting Unavailable Isckarus, Mansour Attending Unavailable Oleghe, Efewongbe Primary Care Unavailable Isckarus, Mansour Attending Unavailable Oleghe, Efewongbe Primary Care Unavailable Isckarus, Mansour Consulting Unavailable Oleghe, Efewongbe Referring Unavailable Isckarus, Mansour Attending Unavailable Isckarus, Mansour Referring Unavailable Oleghe, Efewongbe Primary Care Unavailable Isckarus, Mansour Attending Unavailable Oleghe, Efewongbe Primary Care Unavailable Isckarus, Mansour Consulting Unavailable Robotham, Yuliya Attending Unavailable Isckarus, Mansour Referring Unavailable Robotham, Yuliya Attending Unavailable Robotham, Yuliya Referring Unavailable Oleghe, Efewongbe Primary Care Unavailable Robotham, Yuliya Attending Unavailable Oleghe, Efewongbe Referring Unavailable Isckarus, Mansour Attending Unavailable Oleghe, [place]ongbe Primary Care Unavailable Isckarus, Mansour Consulting Unavailable Oleghe, Efewongbe Referring Unavailable Oleghe, [place] Attending Unavailable Robotham, Yuliya Attending Unavailable Robotham, Yuliya Referring Unavailable Oleghe, [place]ongbe Primary Care Unavailable Robotham, Yuliya Attending Unavailable Robotham, Yuliya Referring Unavailable Oleghe, Efewongbe Primary Care Unavailable SRUTHI, ALESHIA Admitting Unavailable SRUTHI, ALESHIA Attending Unavailable DR LAUREANO WILKINSON MD Primary Care Unavailable SRUTHI, ALESHIA Consulting Unavailable DR LAUREANO WILKINSON MD Consulting Unavailable PROBLEMS PROBLEMS DATE TYPE CONDITION / CODE ATTENDING STATUS SOURCE 04/25/2018 Unknown C77.9 - Secondary Isckarus, Active [place] [facility] of lymph node, Repository unspecified / C77.9(ICD-10) 04/25/2018 Unknown N63.10 - Unspecified Isckarus, Active [place] lump in the right [facility] breast, unspecified Hospital quadrant / Repository N63.10(ICD-10) 07/13/2018 Unknown C50.912 - Malignant Devi, Active [place] neoplasm of [facility] unspecified site of Hospital left female breast / Repository C50.912(ICD-10) 07/13/2018 Unknown R11.2 - Nausea with Devi, Active [place] vomiting, [facility] unspecified / Hospital R11.2(ICD-10) Repository 06/09/2018 Unknown C50.911 - Malignant Robotham, Active [place] neoplasm of [facility] unspecified site of Hospital right female breast Repository / C50.911(ICD-10) 06/07/2018 Unknown G89.18 - Other acute Robotham, Active [place] postprocedural pain [facility] / G89.18(ICD-10) Hospital Repository 05/24/2018 Unknown I10 - Essential Oleghe, Active [place] (primary) [facility] hypertension / Hospital I10(ICD-10) Repository 05/24/2018 Unknown M85.80 - Other Oleghe, Active [place] specified disorders [facility] of bone density and Hospital structure, Repository unspecified site / M85.80(ICD-10) 05/24/2018 Unknown Z00.00 - Encounter Oleghe, Active [place] for general adult [facility] medical examination Hospital without abnormal Repository findings / Z00.00(ICD-10) 09/20/2017 Admitting PERS HX MALIGNANT SRUTHI, Active [facility] diagnosis NEOPLASM BREAST / [facility] Z85.3(ICD-10) Repository 09/20/2017 Unknown PERS HX MALIGNANT SRUTHI, Active [facility] NEOPLASM BREAST / [facility] Z85.3(ICD-10) Repository 09/20/2017 Unknown ESTROGEN RECEPTOR SRUTHI, Active [facility] POSITIVE STATUS / [facility] Z17.0(ICD-10) Repository PROCEDURES PROCEDURES No Procedure Records FoundRESULTS RESULTS ONCOLOGY VISIT REPORT Observed: 07/13/2018 Status: F Source: [place] 1:00 PM [facility] REPOSITORY [facility] [place] [address] OFFICE VISIT Date of Service: 07/13/18 1014 MR#: [id number] Acct: [id number] Name: ARANZA BAILON Rep #: [id number] : 1950 From: [place] ASLGUERO Age/Sex: 68/F Location: OMD Status: Signed Subjective - Date of Service Date of Service:: 07/13/18 - Chief Complaint Chemotherapy Education- TC, Brittalasta - History of Present Illness Patient is a 68-year-old female with: #1- Right breast cancer presented in April 2018 with a newly felt lump in the right breast. Mammogram and ultrasound April 2018 is highly suspicious for malignancy. Biopsy on May 03, 2018 confirmed an invasive ductal cancer, ER (clone 6F11) positive, >95%, strong MT (clone 16/1E2) positive, >95%, strong Her-2Neu (clone CB11) negative (0-1+) On June 07, 2018 she underwent right breast partial mastectomy with sentinel lymph node biopsy, pathology revealed: MICROSCOPIC DIAGNOSIS A. Right axillary sentinel lymph node tissue, biopsy: One out of two lymph nodes, positive for metastatic carcinoma. See comment. B. Right breast, lumpectomy: Invasive ductal carcinoma. See cancer summary below. C. Right breast tissue, new medial margin: A piece of benign breast tissue with focal dense fibrosis, negative for carcinoma. D. Right breast tissue, additional new lateral margin: A piece of benign breast tissue with focal dense fibrosis and intraductal hyperplasia without atypia, negative for carcinoma. INVASIVE BREAST CANCER SUMMARY: Specimen partial breast (including nipple and skin). Procedure excision with wire-guided localization (including nipple and skin). Lymph node sampling sentinel lymph nodes Specimen integrity multiple designated specimens Specimen size lumpectomy specimen 6 x 4.5 x 2 cm and additional medial margin 3.5 x 2.5 x 1 cm and additional lateral margin 3 x 1.5 x 1 cm. Specimen laterality - right Tumor site not specified Tumor size 1.6 x 1.6 x 1.5 cm Tumor focality single focus of invasive carcinoma. Macroscopic and Microscopic extent of tumor: Skin invasive carcinoma does not invade into the dermis or epidermis. Nipple ductal carcinoma in situ does not involve the nipple epidermis. Skeletal muscle no skeletal muscle present. Ductal carcinoma in situ (DCIS) no ductal carcinoma in situ is present. Lobular carcinoma in situ (LCIS) not identified Histologic type of invasive carcinoma invasive ductal carcinoma with focal area of micropapillary features. Histologic Grade ([place] grade): Glandular/tubular differentiation - score 3 Nuclear pleomorphism - score 2 Mitotic count score 1 Overall grade - 2 (score of 6) Margins - Margins uninvolved by invasive carcinoma. Invasive carcinoma is 0.5 cm away from the closest inferior margin. Treatment effect: Response to presurgical (neoadjuvant) therapy - no known presurgical therapy. Lymph-Vascular invasion not identified Dermal lymph-vascular invasion - not identified Lymph nodes: Number of sentinel lymph nodes examined - 2 Total number of lymph nodes examined (sentinel and nonsentinel) - 2 Number of lymph nodes with macrometastases - 1 Number of lymph nodes with micrometastases and isolated tumor cells - 0 Size of largest metastatic deposit (if present) 0.4 cm Extranodal extension present, focal Method of evaluation of sentinel lymph nodes - H AND E, multiple levels and IHC. Distant metastasis not applicable Additional pathologic findings dense fibrosis and fibrocystic changes Ancillary studies - previously performed on section of tumor ([id number] / [id number]). ER positive (>95%, strong) MT - positive (>95%, strong) Her2 britta negative (0-1+) Microcalcifications present in invasive carcinoma. PATHOLOGIC STAGE: pT1c pN1a Mx #2- Left breast cancer that presented with a palpable lump in the left breast. February 03, 2012 she underwent a left breast partial mastectomy and left axillary lymph node dissection. Pathology revealed an invasive ductal cancer overall grade 2 with 1 of 13 lymph nodes positive for metastatic cancer. Cancer was ER negative, MT negative, HER-2 overexpressed. She received systemic adjuvant therapy with 4 cycles of AC, followed by weekly Taxol with Herceptin for 12 weeks then completed 1 year of adjuvant Herceptin by June 2012. She did receive adjuvant radiation therapy. Her care was at [facility]. Treatment: 1. Right breast: Partial mastectomy with sentinel lymph node biopsy June 07, 2018. Adjuvant TC to start June 2018. 2. Left breast partial mastectomy with axillary lymph node dissection 2011 followed by adjuvant AC then T with 1 year of Herceptin concluded June 2012. Adjuvant radiation therapy 2011 - Interval History The patient is presenting to clinic accompanied by for chemotherapy education. It was proposed she begin systemic chemotherapy with Taxotere, Cytoxan and Neulasta. Describes a good support system at home by way of spouse. - Past Medical/Social History Past Medical History Cancer: Breast cancer Social History Social History: No changes Smoking Status Never smoker Review of Systems Constitutional:: Denies: Fever, Sweats, [...] Denies: Anxiety, Depression, Homicidal Ideations, Suicidal Ideations Vital Signs Height 5 ft 2.5 in Weight: 138 lb 12.8 oz Weight in Pounds 138.8 lbs Pulse Ox 98 - Physical Exam General: Alert, Oriented x3, No apparent distress HEENT: Atraumatic, Normocephalic Psychiatric:: Appropriate affect, Euthymic Assessment and Plan 68-year-old female with 1- right breast cancer, invasive ductal, ER positive (95%, MT positive (95%) HER-2 not amplified, quite distinct from her left breast cancer of 2011. Cancerous stage IIA (the 1C, N1, M0), Overall grade 2 (total score 6), Emergency room positive (>95%), MT positive (>95%) and HER2/britta not amplified. Patient is status post right partial mastectomy with sentinel lymph node biopsy June 07, 2018 . 2. Left breast cancer stage IIb (T2, N1A, M0) invasive ductal cancer of the left breast G2, ER negative, MT negative, HER-2 overexpressed status post partial mastectomy with axillary lymph node dissection in January 2012 followed by adjuvant AC, Taxol and 1 year of Herceptin and adjuvant radiation therapy. Her adjuvant treatment was concluded June 2012. Comorbid conditions: Osteopenia (last bone density May 2017) on vitamin D and calcium. Plan: 1- It has been proposed she begin Systemic adjuvant chemotherapy, non anthracycline (due to prior exposure to Adriamycin) with 4 cycles of TC supported with antiemetics, steroids and Neulasta. The patient has been thoroughly educated to risks/benefits associated with chemotherapy, Taxotere/.Cytoxan and Neulasta. Specifically, she has been educated to potential side effects, recommendations for symptom management, and circumstances in which she should contact provider immediately, such as the development of any signs/symptoms of infection inclusive of temperature > 100.4. Encouraged to go directly to ED should fever occur outside normal clinic hours. She has been provided written educational information and after hours contact information and prescriptions for dexamethasone/prn antiemetics/EMLA cream (still has port). Greater than 50% of this one hour visit was spent in counseling and a significant amount of time was allotted for questions. All the patient's concerns were addressed to her satisfaction and she is agreeable to proceed. Tentatively, she will commence with cycle 1 on 07/19/2018. 2- Systemic adjuvant hormonal therapy to follow chemotherapy. 3- Adjuvant radiation therapy to follow chemotherapy, will be referred. 4-Bone supportive therapy with Prolia 60 mcg subcu every 6 months Advised and will be started after completion of chemotherapy and any elective dental work. Patient was in agreement with aforementioned plan. Crystal Quinonez, MSN, FACILITY MAINTENANCE WORKER, AOCNP Medications: Prescriptions This Visit Medication Instructions Recorded Calcium Carbonate/Vitamin D3 2 tab PO DAILY 04/25/18 [Calcium 600-Vit D3 200 Tablet] Natali-C 1,000 mg PO DAILY 04/25/18 Magnesium Oxide [Magnesium] 400 mg PO DAILY 04/25/18 Primary Care Provider: Dalton Bonilla MD Referring Provider: - Problem List (1) Breast cancer, right breast Status: Acute Qualifiers: Estrogen receptor status: positive Patient sex: female (2) Educational circumstance Status: Acute 07/13/18 1300 <Electronically signed by Crystal VERMAC> Date Crystal SALGUERO Cosigner Signature: Date (if applicable) CC: ONCOLOGY VISIT REPORT Observed: 07/05/2018 Status: F Source: [place] 2:46 PM [facility] REPOSITORY [facility] [place] [address] OFFICE VISIT Date of Service: 07/05/18 1326 MR#: [id number] Acct: [id number] Name: ARANZA BAILON Rep #: [id number] : 1950 From: Wendi Bhat MD Age/Sex: 68/F Location: ONC Status: Signed - Problem List (1) Breast cancer, right breast Status: Acute (2) Primary cancer of left female breast Status: Chronic Comment: ER negative, MT negative, HER-2 overexpressed, 2011 (3) Regional lymph node metastasis present Status: Acute - Date of Service Date of Service:: 07/05/18 - Chief Complaint Breast cancer on treatment - History of Present Illness Patient is a 68-year-old female with: #1- Right breast cancer presented in April 2018 with a newly felt lump in the right breast. Mammogram and ultrasound April 2018 is highly suspicious for malignancy. Biopsy on May 03, 2018 confirmed an invasive ductal cancer, ER (clone 6F11) positive, >95%, strong MT (clone 16/1E2) positive, >95%, strong Her-2Neu (clone CB11) negative (0-1+) On June 07, 2018 she underwent right breast partial mastectomy with sentinel lymph node biopsy, pathology revealed: MICROSCOPIC DIAGNOSIS A. Right axillary sentinel lymph node tissue, biopsy: One out of two lymph nodes, positive for metastatic carcinoma. See comment. B. Right breast, lumpectomy: Invasive ductal carcinoma. See cancer summary below. C. Right breast tissue, new medial margin: A piece of benign breast tissue with focal dense fibrosis, negative for carcinoma. D. Right breast tissue, additional new lateral margin: A piece of benign breast tissue with focal dense fibrosis and intraductal hyperplasia without atypia, negative for carcinoma. INVASIVE BREAST CANCER SUMMARY: Specimen partial breast (including nipple and skin). Procedure excision with wire-guided localization (including nipple and skin). Lymph node sampling sentinel lymph nodes Specimen integrity multiple designated specimens Specimen size lumpectomy specimen 6 x 4.5 x 2 cm and additional medial margin 3.5 x 2.5 x 1 cm and additional lateral margin 3 x 1.5 x 1 cm. Specimen laterality - right Tumor site not specified Tumor size 1.6 x 1.6 x 1.5 cm Tumor focality single focus of invasive carcinoma. Macroscopic and Microscopic extent of tumor: Skin invasive carcinoma does not invade into the dermis or epidermis. Nipple ductal carcinoma in situ does not involve the nipple epidermis. Skeletal muscle no skeletal muscle present. Ductal carcinoma in situ (DCIS) no ductal carcinoma in situ is present. Lobular carcinoma in situ (LCIS) not identified Histologic type of invasive carcinoma invasive ductal carcinoma with focal area of micropapillary features. Histologic Grade ([place] grade): Glandular/tubular differentiation - score 3 Nuclear pleomorphism - score 2 Mitotic count score 1 Overall grade - 2 (score of 6) Margins - Margins uninvolved by invasive carcinoma. Invasive carcinoma is 0.5 cm away from the closest inferior margin. Treatment effect: Response to presurgical (neoadjuvant) therapy - no known presurgical therapy. Lymph-Vascular invasion not identified Dermal lymph-vascular invasion - not identified Lymph nodes: Number of sentinel lymph nodes examined - 2 Total number of lymph nodes examined (sentinel and nonsentinel) - 2 Number of lymph nodes with macrometastases - 1 Number of lymph nodes with micrometastases and isolated tumor cells - 0 Size of largest metastatic deposit (if present) 0.4 cm Extranodal extension present, focal Method of evaluation of sentinel lymph nodes - H AND E, multiple levels and IHC. Distant metastasis not applicable Additional pathologic findings dense fibrosis and fibrocystic changes Ancillary studies - previously performed on section of tumor ([id number] / [id number]). ER positive (>95%, strong) MT - positive (>95%, strong) Her2 britta negative (0-1+) Microcalcifications present in invasive carcinoma. PATHOLOGIC STAGE: pT1c pN1a Mx #2- Left breast cancer that presented with a palpable lump in the left breast. February 03, 2012 she underwent a left breast partial mastectomy and left axillary lymph node dissection. Pathology revealed an invasive ductal cancer overall grade 2 with 1 of 13 lymph nodes positive for metastatic cancer. Cancer was ER negative, MT negative, HER-2 overexpressed. She received systemic adjuvant therapy with 4 cycles of AC, followed by weekly Taxol with Herceptin for 12 weeks then completed 1 year of adjuvant Herceptin by June 2012. He did receive adjuvant radiation therapy. Her care was at [facility]. Treatment: 1. Right breast: Partial mastectomy with sentinel lymph node biopsy June 07, 2018. Adjuvant TC to start June 2018. 2. Left breast partial mastectomy with axillary lymph node dissection 2011 followed by adjuvant AC then T with 1 year of Herceptin concluded June 2012. Adjuvant radiation therapy 2011 - Past Medical/Social History Past Medical History Cancer: Breast cancer Social History Social History: No changes Smoking Status Never smoker Review of Systems Constitutional:: Denies: Fever, Sweats, [...] Anxiety, Depression, Homicidal Ideations, Suicidal Ideations Comment: Recovered well from her recent surgery Vital Signs Height 5 ft 2.5 in Weight: 63.957 kg Weight in Pounds 141.0 lbs Pulse Ox 97 - Physical Exam General: Alert, Oriented x3, No apparent distress, - - ECOG 0 HEENT: Atraumatic, PERRLA, EOMI, Normocephalic Oropharynx:: Dry mucosa Neck:: Supple, Trachea midline, - - Port okay. Negative for: JVD, bilateral Cardiac:: Regular rate, Regular rhythm, Normal S1, Normal S2. Negative for: Murmur Lungs: Clear to auscultation, Excusion symmetrical. Negative for: Rhonchi, Wheezes Abdomen:: Soft, Non-tender, Non-distended. Negative for: Hepatosplenomegaly Extremities:: Negative for: Cyanosis, Edema Neurological: Neuro grossly intact Skin:: Negative for: Lesions, Rash, Petechiae, Ecchymosis Psychiatric:: Appropriate affect, Euthymic Lymphatics:: Negative for: Cervical lymphadenopathy, Supraclavicular lymphadenopathy Pathology Data: Reviewed and summarized in HPI Assessment and Plan 68-year-old female with 1- right breast cancer, invasive ductal, ER positive (95%, MT positive (95%) HER-2 not amplified, quite distinct from her left breast cancer of 2011. Cancerous stage IIA (the 1C, N1, M0), Overall grade 2 (total score 6), Emergency room positive (>95%), MT positive (>95%) and HER2/britta not amplified. Patient is status post right partial mastectomy with sentinel lymph node biopsy June 07, 2018 . 2. Left breast cancer stage IIb (T2, N1A, M0) invasive ductal cancer of the left breast G2, ER negative, MT negative, HER-2 overexpressed status post partial mastectomy with axillary lymph node dissection in January 2012 followed by adjuvant AC, Taxol and 1 year of Herceptin and adjuvant radiation therapy. Her adjuvant treatment was concluded June 2012. Comorbid conditions: Osteopenia (last bone density May 2017) on vitamin D and calcium. Plan: I reviewed the most recent NCCN guidelines and I advised : 1- Systemic adjuvant chemotherapy, non anthracycline (due to prior exposure to Adriamycin) with 4 cycles of TC supported with antiemetics, steroids and Neulasta. 2- Systemic adjuvant hormonal therapy to follow chemotherapy. 3- Adjuvant radiation therapy to follow chemotherapy, will be referred. Patient was seen with her , impression and plan discussed.She is due to have some dental work this week and if cleared will start her chemotherapy. Bone supportive therapy with Prolia 60 mcg subcu every 6 months Advised and will be started after completion of chemotherapy and any elective dental work. Medications: Prescriptions This Visit Medication Instructions Recorded Calcium Carbonate/Vitamin D3 2 tab PO DAILY 04/25/18 [Calcium 600-Vit D3 200 Tablet] Natali-C 1,000 mg PO DAILY 04/25/18 Magnesium Oxide [Magnesium] 400 mg PO DAILY 04/25/18 Primary Care Provider: Dalton Bonilla MD Referring Provider: 07/05/18 7339 <Electronically signed by Wendi Bhat MD> Date Wendi Bhat MD Cosigner Signature: Date (if applicable) CC: Dalton Bonilla MD SURGERY VISIT REPORT Observed: 06/23/2018 Status: F Source: [place] 8:40 AM [facility] REPOSITORY [facility] [address] [place] [address] OFFICE VISIT Date of Service: 06/22/18 MR#: [id number] Acct: [id number] Name: ARANZA BAILON Rep #: [id number] : 1950 Provider: Yuliya Knox MD Age/Sex: 68/F Location: [facility] Status: Signed Intake Vital Signs06/22/18 Body Mass Index (BMI) 24.1 Intake Visit Reasons: Rt Lumpectomy 06/07 Chief Complaint: establish care Allergies No Known Allergies Allergy (Verified 05/31/18 08:06) Medications Calcium Carbonate/Vitamin D3 [Calcium 600-Vit D3 200 Tablet] 2 tab PO DAILY 04/25/18 [History Confirmed 06/07/18] Natali-C 1,000 mg PO DAILY 04/25/18 [History Confirmed 06/07/18] Magnesium Oxide [Magnesium] 400 mg PO DAILY 04/25/18 [History Confirmed 06/07/18] Multivit with Calcium,Iron,Min [Multiple Vitamins For Women] 1 tab PO DAILY 04/25/18 [History Confirmed 06/07/18] [place]-3 Fatty Acids [Fish Oil] 1,200 mg PO DAILY 04/25/18 [History Confirmed 06/07/18] Acetaminophen/Diphenhydramine [Acetaminophen Pm Caplet] 1 ea PO QHS 05/31/18 [History Confirmed 06/07/18] PFSH Medical History Cancer of left breast (Acute) Cancer of right breast (Acute) Depression (Acute) History of hysterectomy (Acute) Surgical History History of lumpectomy (Acute) Family History Father Cancer Other No pertinent family history Social History Smoking Status: Never smoker alcohol intake: never substance use type: does not use what type of physical activity do you participate in: none HPI HPI HPI: ARANZA BAILON, is a 68 F who presents to the office today for follow-up for right lumpectomy and sentinel node biopsy for invasive ductal carcinoma. Patient states she is doing well and she only needed to use to pain pills otherwise has not been having any pain in either her right breast or her right axilla patient's pathology did not show 1 out of 2 lymph nodes positive for metastatic carcinoma with a size of 4 mm. The size of the tumor was 1.6 x 1.6 x 1.5 and the closest margin was 5 mm inferiorly. The lymph node did show a focal area of extranodal extension. Exam Const General: cooperative, comfortable, no acute distress Chest Other: Right breast incision healing well resolving ecchymosis, Steri-Strips removed in office. Right axillary incision healing well no signs of infection, patient has a right deltopectoral groove port in place Assessment AND Plan Problems 1. Breast cancer, right breast C50.911 Plan Reviewed the pathology reports with the patient and discussed the due to the positive lymph node she would need chemotherapy which this is already been discussed with Dr. rogers as well. Also discussed with the patient that the focal extranodal extension of the lymph node means that some of the cancer cells were on the outside of the lymph node that was positive. Discussed that the options of going back to do a complete axillary node dissection versus radiation of the axilla. Patient was agreeable to just proceed with the radiation of the axilla along with her planned radiation of the lumpectomy site. Patient is scheduled to see Dr. Bhat this month and she will also see Dr. Mares radiation oncologist as well. Patient no further questions at this time. Plan for follow- up in 6 months Yuliya Knox M.D. Pager: [phone] [facility] [address] [place] [address], [address] [place] [address] Office: [phone] Plan Detail Follow Up 6 Months Coding Level of Care Code Global Post Op Diagnoses Breast cancer, right breast C50.911 06/23/18 0840 <Electronically signed by Yuliya Knox MD> Date Yuliya Knox MD Cosigner Signature: Date (if applicable) CC: Dalton Bonilla MD; Wendi Bhat MD; Pablito Mares DO DISCHARGE INSTRUCTION Observed: 06/07/2018 Status: F Source: [place] 11:58 AM [facility] REPOSITORY [facility] Medical Records Department [address] [place] [address] Instructions for Home/Discharge Instructions 06/07/18 1149 MR#: [id number] Acct: [id number] Name: ARANZA BAILON Shauna Rep #: [id number] : 1950 68 From: Yuliya Knox MD PCP: Dalton Bonilla MD Status: REG SDC Discharge Diet: No Restrictions Discharge Activity: May [...] For Women] 1 tab PO DAILY 04/25/18 [place]-3 Fatty Acids [Fish Oil] 1,200 mg PO [...] the 5:00 and on the weekends call [phone] When: Call for follow-up appointment in 2 weeks Proposed Discharge Date: 06/07/18 06/07/18 1158 <Electronically signed by Yuliya Knox MD> Date Yuliya Knox MD CC: Dalton Bonilla MD BREAST BIOPSY Observed: 06/07/2018 Status: F Source: [place] SPECIMEN 11:27 AM [facility] REPOSIT[facility] Imaging Services [address] [place] [address] Breast Biopsy Specimen MR#: [id number] Acct: [id number] Name: ARANZA BAILON Rep #: [id number] : 1950 F 68 From: Ismael Winters MD PCP: Dalton Bonilla MD Status: [facility] Study: Breast Biopsy Specimen Date of Exam: 06/07/18 Exam# [id number] Ordering Dr: Yuliya Knox MD SURGICAL BREAST SPECIMEN RADIOGRAPH CLINICAL: Document presence of tissue clip marker in biopsy specimen. FINDINGS: Specimen shows presence of tissue clip marker. Electronically Signed: Ismael Winters MD at 12:45 EST Tel [phone], Service support , BI/Breast Biopsy Specimen CC: Dalton Bonilla MD; Yuliya Knox MD [employer] Records Clerk: Signed LYMPH NODE INJECTION Observed: 06/07/2018 Status: F Source: [place] ONLY 7:44 AM [facility] REPOSITORY [facility] Imaging Services [address] [place] [address] Lymph Node Injection Only MR#: [id number] Acct: [id number] Name: ARANZA BAILON Rep #: [id number] : 1950 F 68 From: Ismael Winters MD PCP: Dalton Bonilla MD Status: [place] [facility] Study: Lymph Node Injection Only Date of Exam: 06/07/18 Exam# [id number] Ordering Dr: Yuliya Knox MD PROCEDURE: NUCLEAR MEDICINE Injection [place] Node - RIGHT breast(s). REASON FOR EXAM: Female, 68 years old. Right breast cancer. TECHNIQUE: [place] node localization using radionuclide methods of the [...] Ismael Winters MD at 8:48 EST Tel [phone], Service support , CC: Dalton Bonilla MD; Yuliya Knox MD [employer] Records Clerk: Signed IMMUNOHISTOCHEMISTRY Observed: 06/07/2018 Status: F Source: [place] 12:00 AM [facility] REPOS[facility] Patient: ARANZA BAILON : 1950 (68/F) Acct Num: [id number] Phys: Yuliya Knox MD Unit Num: [id number] [place] [facility] Specimen: [id number] Received: 06/10/18 - 1434 Spec Type: IMMUNO TISSUES 1 TISSUES: A. Axillary lymph node, NOS B. Right breast, NOS SPECIMEN INFORMATION: Tissue Source: A - Right axillary sentinel lymph node tissue, B - Right breast lumpectomy tissue Clinical Info: Right breast cancer Specimen Number: [id number] A1 AND B10 CPT code: 52793 x2, 25197 x2 METHODOLOGY: Deparaffinized sections of prefer/formalin-fixed tissue or PAP/DQ stained slides are incubated with monoclonal/polyclonal antibodies/oligonucleotide probes. Localization is made via biotin free immunoperoxidase method. Appropriate controls are performed and reacted as expected. Results on target cell population are indicated in the following table: RESULTS: ANTIBODY / CLONE RESULT Block A1 AE1-3 (AE1/AE3/PCK26) negative CK7 (OV-TL12/30) negative Block B10 P40 (BC28) negative Calponin-1 (WS710M) negative These tests were developed and their performance characteristics determined by [facility]. They may not have been cleared or approved by the U.S. Food and Drug Administration. The FDA has determined that such clearance or approval is not necessary. INTERPRETATION: A. Right axillary sentinel lymph node tissue, biopsy: One lymph node, negative for metastatic carcinoma. B. Right breast lumpectomy tissue: Invasive ductal carcinoma. SJ:clayton 06/13/18 PHYSICIAN AND INSTITUTION [place] [address] Signed Ender Reed MD 06/13/18 <signature on file> Performed By: #### PIMM #### [facility] [address] [place] [address]. [place], [place], [id number] AXILLARY NODE BIOPSY Observed: 06/07/2018 Status: F Source: [place] 12:00 AM [facility]POS[facility] Patient: ARAZNA BAILON : 1950 (68/F) Acct Num: [id number] Phys: Lisette WILKINS,[facility] Unit Num: [id number] [place]: [facility] Specimen: [id number] Received: 06/07/18 - 1055 Spec Type: AX NODE BX TISSUES 1 TISSUES: A. Axillary lymph node, NOS B. Right breast, NOS C. Right breast, NOS D. Right breast, NOS COMMENT A. The largest focus of metastasis measures 0.4 cm in greatest dimension. Focal extranodal extension is noted. One lymph node is negative for metastatic carcinoma on multiple H AND E levels and also on immunohistochemical stain for cytokeratins ([id number]). FROZEN SECTION DIAGNOSIS A. Right axillary sentinel lymph node tissue, biopsy: One out of two lymph nodes, positive for metastatic carcinoma. : 06/07/18 Case has been reviewed in consultation with Dr. Sauceda who concurs with the above diagnosis. IDC:AM GROSS DESCRIPTION A - Received fresh for frozen section diagnosis labeled with the patient's name is a specimen designated right axillary sentinel lymph node tissue. The specimen consists of a piece of adipose tissue containing two nodules consistent with lymph node measuring 3.5 x 1.5 x 0.5 cm. The lymph nodes measure 1 and 1.5 cm in greatest dimension. The entire specimen is submitted for frozen section diagnosis as follows: 1 - frozen section, one bisected lymph node, 2 - frozen section, one bisected lymph node. / : 06/07/18 B - Received fresh for intraoperative consultation labeled with the patient's name and designated right breast lumpectomy tissue. The specimen consists of a piece of fibroadipose tissue with overlying skin ellipse and nipple and areola with needle localization measuring 6 x 4.5 x 2 cm. The nipple measures 1 cm in greatest dimension. The overlying skin ellipse measures 5.5 x 3 cm. The specimen is inked as follows: superior - blue, inferior - green, medial - red, lateral - orange and posterior - black. Serial sections reveal a gagnon, indurated tumor mass measuring 1.6 x 1.6 x 1.5 cm. This mass is 0.5 cm away from the closest inferior margin. This information is conveyed to the surgeon intraoperatively. Sections of the rest of the specimen reveal gagnon-yellow adipose cut surfaces mixed with gagnon-white fibrous area. Attic Blower sections are submitted in ten cassettes as follows: 1 - nipple and adjacent skin, nipple is entirely submitted, 2 - perpendicular medial, lateral and superior margins, 3 -6 - tumor with closest inferior and posterior margins, 7- 10 - client relations representative sections adjacent to and away from the tumor. Sections will be submitted after additional fixation. / : 06/08/18 C - Received in fixative is one container labeled with the patient's name and designated right breast tissue, double suture deras new medial margin, short suture deras superior margin. The specimen consists of a piece of yellow adipose tissue measuring 3.5 x 2.5 x 1 cm. The specimen is oriented as double short suture deras new medial margin and short suture deras superior margin. The specimen is inked as follows: new medial margin - red and superior margin - blue. The rest of the specimen is inked black. Serial sections do not reveal any mass lesion and shows gagnon-yellow adipose cut surfaces mixed with fibrous area. The entire specimen is submitted in five cassettes. Sections will be submitted after additional fixation. Cassette 1 also contains the most superior portion of the specimen. / SJ:rg 06/08/18 D - Received in fixative is one container labeled with the patient's name and designated right breast tissue, single long is new lateral margin, short single is superior. The specimen consists of a piece of yellow fibroadipose tissue measuring 3 x 1.5 x 1 cm. The specimen is inked as follows: new lateral margin - orange, superior margin - blue, rest of the specimen - black. Sections reveal gagnon-yellow adipose cut surfaces with focal fibrous area. No mass lesion is identified. The entire specimen is submitted in two cassettes. Sections will be submitted after additional fixation. / SJ:rg 06/08/18 TC:0 CPT: 71270 x2, 89461 x2, 51987, 31108, 14706 HEADER OPERATION: Right ultrasound-guided needle localization, lumpectomy PRE-OP DIAGNOSIS: Right breast cancer; primary cancer left breast ER negative, MT negative, HER2 overexpressed; regional lymph node metastasis TISSUE SUBMITTED: A - Right axillary sentinel lymph node tissue for FS at 1050, B - Right breast lumpectomy tissue, long suture is lateral, short suture is inferior, to mammo at 1119, C - Right breast tissue, double short suture deras new medial margin, short suture deras superior, D - Right breast tissue, single long is new lateral margin, short single is superior MICROSCOPIC DESCRIPTION Slides are reviewed. MICROSCOPIC DIAGNOSIS A. Right axillary sentinel lymph node tissue, biopsy: One out of two lymph nodes, positive for metastatic carcinoma. See comment. B. Right breast, lumpectomy: Invasive ductal carcinoma. See cancer summary below. C. Right breast tissue, new medial margin: A piece of benign breast tissue with focal dense fibrosis, negative for carcinoma. D. Right breast tissue, additional new lateral margin: A piece of benign breast tissue with focal dense fibrosis and intraductal hyperplasia without atypia, negative for carcinoma. SJ:clayton 06/13/18 INVASIVE BREAST CANCER SUMMARY: Specimen - partial breast (including nipple and skin). Procedure - excision with wire-guided localization (including nipple and skin ). Lymph node sampling - sentinel lymph nodes Specimen integrity - multiple designated specimens Specimen size - lumpectomy specimen 6 x 4.5 x 2 cm and additional medial margin 3.5 x 2.5 x 1 cm and additional lateral margin 3 x 1.5 x 1 cm. Specimen laterality - right Tumor site - not specified Tumor size - 1.6 x 1.6 x 1.5 cm Tumor focality - single focus of invasive carcinoma. Macroscopic and Microscopic extent of tumor: Skin - invasive carcinoma does not invade into the dermis or epidermis. Nipple - ductal carcinoma in situ does not involve the nipple epidermis. Skeletal muscle - no skeletal muscle present. Ductal carcinoma in situ (DCIS) - no ductal carcinoma in situ is present. Lobular carcinoma in situ (LCIS) - not identified Histologic type of invasive carcinoma - invasive ductal carcinoma with focal area of micropapillary features. Histologic Grade (Fay grade): Glandular/tubular differentiation - score 3 Nuclear pleomorphism - score 2 Mitotic count - score 1 Overall grade - 2 (score of 6) Margins - Margins uninvolved by invasive carcinoma. Invasive carcinoma is 0.5 cm away from the closest inferior margin. Treatment effect: Response to presurgical (neoadjuvant) therapy - no known presurgical therapy. Lymph-Vascular invasion - not identified Dermal lymph-vascular invasion - not identified Lymph nodes: Number of sentinel lymph nodes examined - 2 Total number of lymph nodes examined (sentinel and nonsentinel) - 2 Number of lymph nodes with macrometastases - 1 Number of lymph nodes with micrometastases and isolated tumor cells - 0 Size of largest metastatic deposit (if present) - 0.4 cm Extranodal extension - present, focal Method of evaluation of sentinel lymph nodes - H AND E, multiple levels and IHC. Distant metastasis - not applicable Additional pathologic findings - dense fibrosis and fibrocystic changes Ancillary studies - previously performed on section of tumor ([id number] / [id number]). ER - positive (>95%, strong) MT - positive (>95%, strong) Her2 britta - negative (0-1+) Microcalcifications - present in invasive carcinoma. Clinical history - Please make reference to previous specimen ([id number]) right breast, ultrasound-guided core biopsy with diagnosis of invasive ductal carcinoma. PATHOLOGIC STAGE: pT1c pN1a Mx The above summary is in compliance with [employer] (CAP) Cancer Protocols Checklist and [place] Joint Committee on Cancer (AJCC), Staging Manual, 8th Ed. Signed Ender Reed MD 06/13/18 <signature on file> Performed By: #### PAXNB #### [facility] [address] [place], [address] BREAST W/O AND/OR W Observed: 05/20/2018 Status: F Source: [place] CONT BILAT 10:14 AM [facility] REPOSITORY [facility] Imaging Services [address] [place] [address] Breast w/o and/or W Cont Bilat MR#: [id number] Acct: [id number] Name: ARANZA BAILON Rep #: [id number] : 1950 F 68 From: Laureano Ruggiero MD PCP: Dalton Bonilla MD Status: REG CLI Study: Breast w/o and/or W Cont Bilat Date of Exam: 05/20/18 Exam# [id number] Ordering Dr: Yuliya Knox MD STUDY: BILATERAL [...] the facility within 30 days. Electronically Signed: Laureano Ruggiero MD at 11:12 EST , Service support , CC: Dalton Bonilla MD; Yuliya Knox MD [employer] Records Clerk: Signed INTERNAL MEDICINE Observed: 05/19/2018 Status: F Source: [place] OFFICE VISIT 2:30 PM [facility] [address] [place] [address] [place] [address] OFFICE VISIT Date of Service: 05/18/18 MR#: [id number] Acct: [id number] Name: ARANZA BAILON Rep #: [id number] : 1950 Provider: Dalton Bonilla MD Age/Sex: 68/F Location: [facility] Status: Signed Intake Vital Signs05/18/18 Height 5 [...] tab PO DAILY 04/25/18 [History Confirmed 05/18/18] [place]-3 Fatty Acids [Fish Oil] 500 mg PO [...] well developed Orientation: alert, awake, oriented x3 [facility] Head: atraumatic, normal to inspection, normocephalic Ears: [...] VISIT REPORT Observed: 05/16/2018 Status: F Source: [place] 8:17 AM [facility] REPOS[facility] [address] [place] [address]. [address] [place] [address] OFFICE VISIT Date of Service: 05/10/18 MR#: [id number] Acct: [id number] Name: ARANZA BAILON Rep #: [id number] : 1950 Provider: Yuliya Knox MD Age/Sex: 68/F Location: [facility] Status: Signed Intake Intake Visit Reasons: 1 W FU Chief Complaint: post breast biopsy results Joint Finisher Required: No Is patient in pain?: No [...] tab PO DAILY 04/25/18 [History Confirmed 05/10/18] [place]-3 Fatty Acids [Fish Oil] 500 mg PO DAILY 04/25/18 [History Confirmed 05/10/18] Is last menstrual period known: No Post menopausal: Yes Patient : No Subjective Details: Patient presents for discussion of pathology after right breast biopsy. Pathology was consistent with invasive ductal carcinoma ER MT greater than 95%, HER-2/britta negative. Patient does have some bruising after that biopsy however that it is resolving. Patient denies any pain currently. Objective Details: Right breast: Resolving ecchymosis, 1.5 x 1.5 cm mass at 6:00 adjacent to the nipple Assessment AND Plan Problems 1. Breast cancer, right breast C50.911 2. 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 Regional lymph [...] no further questions. Yuliya Knox M.D. Pager: [phone] [facility] [address] [place] [address], [address] [place] [id number] Office: [phone] Orders Orders: Plan Detail Follow Up Await [...] VISIT REPORT Observed: 05/10/2018 Status: F Source: [place] 11:42 AM [facility] REPOS[facility] [place] [address] OFFICE VISIT Date of Service: 05/10/18 1105 MR#: [id number] Acct: [id number] Name: ARANZA BAILON Rep #: [id number] : 1950 From: Wendi Bhat MD Age/Sex: 68/F Location: [facility] Status: Signed - Problem List (1) Breast cancer, right breast Status: Acute (2) Primary cancer of left female breast Status: Chronic Comment: ER negative, MT negative, HER-2 overexpressed, 2011 (3) Regional lymph [...] cancer, ER (clone 6F11) positive, >95%, strong MT (clone 16/1E2) positive, >95%, strong Her-2Neu (clone [...] for metastatic cancer. Cancer was ER negative, MT negative, HER-2 overexpressed. She received systemic adjuvant therapy with 4 cycles of AC, followed by weekly Taxol with Herceptin for 12 weeks then completed 1 year of adjuvant Herceptin by June 2012. He did receive adjuvant radiation therapy. Her care was at [facility]. He has been on surveillance since. She has recently moved to [facility] and wishes to transfer care close to [...] breast cancer, invasive ductal, ER positive (95%, MT positive (95%) HER-2 not amplified, quite distinct [...] of the left breast G2, ER negative, MT negative, HER-2 overexpressed status post partial mastectomy [...] Provider: Dalton Bonilla MD Referring Provider: 05/10/18 8932 <Electronically signed by Wendi Bhat MD> Date Wendi Bhat MD Cosigner Signature: Date (if applicable) CC: SURGERY VISIT REPORT Observed: 05/05/2018 Status: F Source: [place] 3:38 PM [facility] [address] [place] [address] OFFICE VISIT Date of Service: 05/03/18 MR#: [id number] Acct: [id number] Name: ARANZA BAILON Rep #: [id number] : 1950 Provider: Yuliya Knox MD Age/Sex: 68/F Location: [facility] Status: Signed Intake Intake Visit Reasons: Rt Breast Bx Chief Complaint: New lump in the right breast Joint Finisher Required: No Is patient in pain?: No [...] tab PO DAILY 04/25/18 [History Confirmed 05/03/18] [place]-3 Fatty Acids [Fish Oil] 500 mg PO [...] to that she no longer lives near [place] and did move the [place]. Patient denies any pain. Patient underwent a mammogram as well as an ultrasound which is given a BI-RADS 5 showed a hypoechoic irregular 1.4 cm x 1.1 cm x 1.2 cm nodule at 6:00 adjacent to the nipple. Patient also has a history of left breast cancer that was ER MT negative and HER-2 new positive and underwent left lumpectomy as well as axillary node dissection where 1 out of 13 nodes were positive. Patient underwent chemotherapy and radiation and a year of Herceptin in 2011. ROS General General: Yes breast cancer Breast [...] the breast imaging department good condition. Alert Event Set Up Specialist Yes Biopsy Breast Biopsy: 36134 US Guidance Procedure Time Out Time Out [...] of left female breast C50.912 ER negative, MT negative, HER-2 overexpressed, 2011 Plan Patient underwent a successful ultrasound-guided biopsy of the right breast mass. Patient tolerated procedure well. Await pathology results. Will call patient with pathology results and then arrange follow-up at that time. Yuliya Knox M.D. Pager: [phone] [facility] [address] [place] [address], [address] [place] [id number] Office: [phone] Plan Detail Follow Up Will call patient with pathology results and arrange follow- up at that time. Coding Level of Care Code Off vis,new,level 3 Diagnoses Breast mass, right N63.10 Primary cancer of left female breast C50.912 Additional Codes Biopsy - Breast Biopsy: 11058 US Guidance (65128) Comment [id number] 05/05/18 1538 <Electronically signed by Yuliya Knox MD> Date Yuliya Knox MD Cosigner Signature: Date (if applicable) CC: Dalton Bonilla MD; Wendi Bhat MD IMMUNOHISTOCHEMISTRY Observed: 05/03/2018 Status: F Source: [place] 12:00 AM [facility] Patient: ARANZA BAILON : 1950 (68/F) Acct Num: [id number] Phys: Yuliya Knox MD Unit Num: [id number] Loc: [facility] Specimen: [id number] Received: 05/05/18 0291 Spec Type: IMMUNO TISSUES 1 TISSUES: Right breast, NOS ADDENDUM Addendum Number 1 Positive for estrogen receptors (favorable prognostic indicator). Positive for progesterone receptors (favorable prognostic indicator). Negative for overexpression of ZIN1ara. AM:clayton 05/18/18 Addendum Signed Varun Sohail 05/18/18 <signature on file> SPECIMEN INFORMATION: Tissue Source: Right breast, biopsy Clinical Info: Right breast mass Specimen Number: [id number] CPT code: 81773, 26515 x6, 18149 x3 METHODOLOGY: Deparaffinized sections of prefer/formalin-fixed tissue or PAP/DQ stained slides are incubated with monoclonal/polyclonal antibodies/oligonucleotide probes. Localization is made via biotin free immunoperoxidase method. Appropriate controls are performed and reacted as expected. Results on target cell population are indicated in the following table: RESULTS: ANTIBODY / CLONE RESULT P53 (DO-7) positive, 2% Ki-67 (30-9) low CK8 (53nuihD02) positive CK5-6 (D5 AND 1684) negative Calponin-1 (RL816S) negative P40 (BC28) negative E-Cad (ECH-6) positive MORPHOMETRIC ANALYSIS ER (clone 6F11) positive, >95%, strong MT (clone 16/1E2) positive, >95%, strong Her-2Neu (clone [...] for all equivocal cases. Positivity/negativity for ER/ MT is reported if > or < 1% of the tumor cells are immuno- reactive, respectively. The ASCO/CAP criteria is used for scoring. Reference: Journal of Clinical Oncology, 2013; 31:1349-2541 AND 2009; 16:2784- 2795. Duration of fixation : 9 Hrs; Sample Adequate: Yes. These assays have not been validated on decalcified tissues. Results should be interpreted with caution given the likelihood of false negativity on decalcified specimens. These tests were developed and their performance characteristics determined by [facility]. They may not have been cleared or approved by the U.S. Food and Drug Administration. The FDA has determined that such clearance or approval is not necessary. INTERPRETATION: Right breast, biopsy: Invasive ductal carcinoma. PHYSICIAN AND INSTITUTION [address] [address] Signed Varun Sohail 05/05/18 <signature on file> Performed By: #### PIMM #### [facility] [facility] [address] [place] [address]. [place], [place], [id number] BREAST BIOPSY Observed: 05/03/2018 Status: F Source: [place] (CHOOSE SITE) 12:00 AM [facility] REPOSITORY Patient: ARANZA BAILON : 1950 (68/F) Acct Num: [id number] Phys: Lisette WILKINS,[facility] Num: [id number] Loc: LABSPEC Specimen: [id number] Received: 05/03/18 - 1454 Spec Type: BREAST BX TISSUES 1 TISSUES: Right breast, NOS COMMENT ER/MT/Slr9nwx studies are being performed on sections of tumor and the results from this study will be reported separately ([id number]) Case has been reviewed in consultation with Dr. Reed who concurs with the above diagnosis. IDC:SJ. GROSS DESCRIPTION Received is one container labeled with the patient name and designated right breast biopsy. The specimen consists of multiple elongated fragments of gagnon- yellow fibroadipose tissue that in aggregate measure 1.5 x 0.3 x 0.1 cm. The specimen is totally submitted in one cassette. / SJ:sp 05/03/18 TC: 0 CPT: 24017 HEADER OPERATION: Ultrasound guided needle core, right breast biopsy PRE-OP DIAGNOSIS: Right breast mass TISSUE SUBMITTED: Right breast biopsy ISCHEMIC TIME: 1 minute FIXATION TIME: 9 hours MICROSCOPIC DESCRIPTION Slides are reviewed. MICROSCOPIC DIAGNOSIS Right breast mass, ultrasound guided core biopsy: Invasive ductal carcinoma with the following characteristics. Nuclear grade: 2-3 Maximal length: 4.5 mm AM:sp 05/04/18 Signed Varun Sauceda 05/05/18 <signature on file> Performed By: #### PBRBX #### [facility] [address] [place], [address] ONCOLOGY VISIT REPORT Observed: 05/02/2018 Status: F Source: [place] 2:00 PM [facility] REPOSITORY [facility] [place] [address] OFFICE VISIT Date of Service: 05/02/18 1350 MR#: [id number] Acct: [id number] Name: ARANZA BAILON Rep #: [id number] : 1950 From: Wendi Bhat MD Age/Sex: 68/F Location: OMD Status: Signed - Problem List (1) Primary cancer of left female breast Status: Chronic Comment: ER negative, MT negative, HER-2 overexpressed, 2011 (2) Regional lymph [...] for metastatic cancer. Cancer was ER negative, MT negative, HER-2 overexpressed. She received systemic adjuvant therapy with 4 cycles of AC, followed by weekly Taxol with Herceptin for 12 weeks then completed 1 year of adjuvant Herceptin by June 2012. He did receive adjuvant radiation therapy. Her care was at [facility]. He has been on surveillance since. She has recently moved to [facility] and wishes to transfer care close to [...] of the left breast G2, ER negative, MT negative, HER-2 overexpressed status post partial mastectomy [...] BREAST LIMITED Observed: 04/28/2018 Status: F Source: [place] UNILATERAL 1:57 PM [facility] REPOSITORY [facility] Imaging Services [address] [place] [address] Breast Limited Unilateral MR#: [id number] Acct: [id number] Name: ARANZA BAILON Rep #: [id number] : 1950 F 68 From: Ismael Winters MD PCP: Dalton Bonilla MD Status: REG CLI Study: Breast Limited Unilateral Date of Exam: 04/28/18 Exam# [id number] Ordering Dr: Wendi Bhat MD STUDY: ULTRASOUND [...] Ismael Winters MD at 15:31 EST Tel [phone], Service support , CC: Dalton Bonilla MD; Wendi Bhat MD [employer] Records Clerk: Signed DIAG MAMM W/CAD, Observed: 04/28/2018 Status: F Source: [place] BILAT 1:56 PM [facility] REPOSITORY [facility] Imaging Services [address] [place] [address] DIAG MAMM W/CAD, BILAT MR#: [id number] Acct: [id number] Name: ARANZA BAILON Rep #: [id number] : 1950 F 68 From: Ismael Winters MD PCP: Dalton Bonilla MD Status: REG CLI Study: DIAG MAMM W/CAD, BILAT Date of Exam: 04/28/18 Exam# [id number] Ordering Dr: Wendi Bhat MD MAMMOGRAPHY - [...] Ismael Winters MD at 15:28 EST Tel [phone], Service support , CC: Dalton Bonilla MD; Wendi Bhat MD [employer] Records Clerk: Signed CBC W/DIFF, AUTOMATED Collected: 04/25/2018 Status: F Source: [place] 11:04 AM [facility] REPOSITORY Order Comment: Reason for Laboratory Test [...] Lymph 1.58 Performed By: #### L100.0100 #### [facility] [address] [place], [address] COMPREHENSIVE METABOLIC Collected: 04/25/2018 Status: F Source: [facility] 11:04 AM [facility] REPOSITORY Order Comment: Reason for Laboratory Test [...] GAP 8 Performed By: #### L500.4050 #### [facility] [address] [place], [address] ONCOLOGY HISTORY AND Observed: 04/25/2018 Status: F Source: [place] PHYSICAL 10:50 AM [facility] REPOSITORY [facility] Medical Records Department [address] [place] [address] History and Physical 04/25/18 1005 MR#: [id number] Acct: [id number] Name: ARANZA BAILON Rep #: [id number] : 1950 68 From: Wendi Bhat MD PCP: Dalton Bonilla MD Status: REG RCR Y Location: OMD - Problem List (1) Primary cancer of left female breast Status: Chronic Comment: ER negative, MT negative, HER-2 overexpressed, 2011 (2) Regional lymph [...] for metastatic cancer. Cancer was ER negative, MT negative, HER-2 overexpressed. She received systemic adjuvant therapy with 4 cycles of AC, followed by weekly Taxol with Herceptin for 12 weeks then completed 1 year of adjuvant Herceptin by June 2012. He did receive adjuvant radiation therapy. Her care was at [facility]. He has been on surveillance since. She has recently moved to [facility] and wishes to transfer care close to [...] drinking: Has the patient needed an eye binder cutter hand in the mornings: Comments: Review of Systems [...] of the left breast G2, ER negative, MT negative, HER-2 overexpressed status post partial mastectomy [...] WITH DIFFERENTIAL Collected: 02/22/2018 Status: F Source: [place] 1:40 PM [facility] REPOSITORY TYPE CODE TESTS RESULT OUT OF [...] g/dL C) MCHC RBC Auto-mCnc 34.0 LAB 36299-5(LO 36.4-46.3 fL INC) RDW RBC Auto 42.4 LAB 777-3(LOIN 130-400 10E3/uL C) Platelet # Bld Auto 255 LAB 86170-7(LO 9.0-13.0 fL INC) PMV Bld Auto 9.6 LAB 770-8(LOIN 50.0-70.0 % C) Neutrophils/leuk 50.1 NFr Bld Auto LAB 736-9(LOIN 20.0-40.0 % C) Lymphocytes NFr Bld Auto 35.6 LAB 5905-5(DEBRA <=8.0 % NC) Monocytes NFr High Bld Auto 8.7 LAB 713-8(LOIN <=10.0 % C) Eosinophil NFr Bld Auto 3.7 LAB 706-2(LOIN <=2.0 % C) Basophils NFr Bld Auto 1.7 LAB 00477-8(LO <=1.50 % INC) Imm Granulocytes/leuk 0.20 NFr Bld Auto LAB 751-8(LOIN 1.40-6.50 10E3/uL C) Neutrophils # Bld Auto 3.24 LAB 731-0(LOIN 1.20-3.40 10E3/uL C) Lymphocytes # Bld Auto 2.30 LAB 742-7(LOIN 0.10-0.60 10E3/uL C) Monocytes # Bld Auto 0.56 LAB 711-2(LOIN <=0.70 10E3/uL C) Eosinophil # Bld Auto 0.24 LAB 704-7(LOIN <=0.70 10E3/uL C) Basophils # Bld Auto 0.11 LAB 12302-4(LO <=0.10 10E3/uL INC) Imm Granulocytes # Bld 0.01 Auto LAB 771-6(LOIN <=0.10 10E3/uL C) nRBC # Bld Auto 0.00 Performed By: #### 53712-9 #### [facility] [address] [place] [address] Automatic Seamer - Vonnie LAKHANI [id number] COMPREHENSIVE METABOLIC Collected: 02/22/2018 Status: F Source: [place] PANEL 1:40 PM [facility] REPOSITORY TYPE CODE TESTS RESULT OUT OF REFERENCE UNITS RANGE LAB 2951-2(LO 136-145 mmol/L INC) 140 Sodium SerPl-sCnc LAB 2823-3(LO 3.5-5.1 mmol/L INC) 4.0 Potassium SerPl-sCnc LAB 2075-0(LO 98-107 mmol/L INC) 104 Chloride SerPl-sCnc LAB 2028-9(LO 21-32 mmol/L INC) 29 CO2 SerPl-sCnc LAB 3094-0(LO 7-17 mg/dL INC) 19 High BUN SerPl-mCnc LAB 2160-0(LO 0.51-0.95 mg/dL INC) 0.90 Creat SerPl-nc LAB 00814-6(L >=59 mL/min OINC) >=59 GFR/BSA.pred SerPl MDRD-ArVRat LAB 2345-7(LO 74-106 mg/dL INC) 81 Glucose SerPl-mCnc LAB 09493-9(L 8.5-10.1 mg/dL OINC) 9.3 Calcium SerPl-mCnc LAB 1975-2(LO 0.2-1.0 mg/dL INC) 0.6 Bilirub SerPl-mCnc LAB 2885-2(LO 6.4-8.2 g/dL INC) 7.6 Prot SerPl-mCnc LAB 1751-7(LO 3.4-5.0 g/dL INC) 3.9 Albumin SerPl-mCnc LAB 19201-3(L <=15.0 mmol/L OINC) 7.0 Anion Gap3 SerPl-sCnc [...] or without kidney damage.~ Performed By: #### 00625-6 #### [address] [place] [address] Automatic Se[employer] - Vonnie LAKHANI [id number] [place] 27 29 Collected: 02/22/2018 Status: F Source: [facility] 1:40 PM HOSPITAL REPOSITORY TYPE CODE TESTS RESULT OUT OF RANGE REFERENCE UNITS LAB 390599(LOIN 0.0-38.6 U/mL C) 87295-7 31.8 Result Comment: Madeline Centaur/ACS methodology Performed By: #### [id number] #### Performed for [place] [address] COMPREHENSIVE METABOLIC Collected: 08/31/2017 Status: F Source: [facility] 1:22 PM [facility] REPOSITORY TYPE CODE TESTS RESULT OUT OF REFERENCE UNITS RANGE LAB 2951-2(LO 136-145 mmol/L INC) 140 Sodium SerPl-sCnc LAB 2823-3(LO 3.5-5.1 mmol/L INC) 4.1 Potassium SerPl-sCnc LAB 2075-0(LO 98-107 mmol/L INC) 105 Chloride SerPl-sCnc LAB 2028-9(LO 21-32 mmol/L INC) 30 CO2 SerPl-sCnc LAB 3094-0(LO 7-17 mg/dL INC) 21 High BUN SerPl-mCnc LAB 2160-0(LO 0.51-0.95 mg/dL INC) 0.79 Creat SerPl-nc LAB 96198-2(L >=59 mL/min OINC) >=59 GFR/BSA.pred SerPl MDRD-ArVRat LAB 2345-7(LO 74-106 mg/dL INC) 94 Glucose SerPl-nc LAB 61866-8(L 8.5-10.1 mg/dL OINC) 9.3 Calcium SerPl-nc LAB 1975-2(LO 0.2-1.0 mg/dL INC) 0.4 Bilirub SerPl-nc LAB 2885-2(LO 6.4-8.2 g/dL INC) 7.5 Prot SerPl-nc LAB 1751-7(LO 3.4-5.0 g/dL INC) 3.6 Albumin SerPl-nc LAB 51998-9(L <=15.0 mmol/L OINC) 5.0 Anion Gap3 SerPl-sCnc [...] or without kidney damage.~ Performed By: #### 70572-1 #### [facility] [address] [place] [address] Automatic Se[employer] - Vonnie LAKHANI [id number] CBC WITH MANUAL Collected: 08/31/2017 Status: F Source: [place] DIFFERENTIAL 1:22 PM [facility] REPOSITORY TYPE CODE TESTS RESULT OUT OF REFERENCE UNITS RANGE LAB 6690-2(LO 4.80-10.80 10E3/uL INC) WBC # Bld Auto 5.00 LAB 789-8(EDBRA 4.00-6.30 10E6/uL NC) RBC # Bld Auto 4.33 LAB 718-7(DEBRA 12.0-16.0 g/dL NC) Hgb Bld-mCnc 13.2 LAB 4544-3(LO 37.0-47.0 % INC) Hct VFr Bld Auto 39.7 LAB 787-2(DEBRA 80.0-100.0 fL NC) MCV RBC Auto 91.7 LAB 785-6(DEBRA 27.0-31.0 pg NC) MCH RBC Qn Auto 30.5 LAB 786-4(DEBRA 32.0-36.0 g/dL NC) MCHC RBC 33.2 Auto-mCnc LAB 93122-6(L 36.4-46.3 fL OINC) RDW RBC Auto 42.5 LAB 777-3(DEBRA 130-400 10E3/uL NC) Platelet # Bld 214 Auto LAB 73799-9(L 9.0-13.0 fL OINC) PMV Bld Auto 9.4 LAB HDIFF(DEBRA NC) HDIFF MANUAL DIFFERENTIAL LAB 769-0(DEBRA 50-70 % NC) Neuts Seg NFr Bld 59 Manual LAB 764-1(DEBRA <=10 % NC) Neuts Band NFr 1 Bld Manual LAB 39240-7(L NONE SEEN OINC) Neut Vac+Seg Bld Ql LAB 737-7(DEBRA 20-40 % NC) Lymphocytes NFr 26 Bld Manual LAB 45264-8(L NONE SEEN OINC) Variant Lymphs Bld Ql [...] <=1 NC) Blasts NFr Bld Manual LAB 94786-1(L NONE SEEN OINC) Plasma Cells Bld Ql Smear LAB 753-4(DEBRA 1.4-6.5 10E3/uL NC) Neutrophils # Bld 3.0 Manual LAB 732-8(DEBRA 1.2-3.4 10E3/uL NC) Lymphocytes # Bld 1.3 Manual LAB 743-5(DEBRA 0.1-0.6 10E3/uL NC) Monocytes # Bld 0.4 Manual LAB 712-0(DEBRA 0.0-0.7 10E3/uL NC) Eosinophil # Bld 0.3 Manual LAB 705-4(DEBRA 0.0-0.7 10E3/uL NC) Basophils # Bld 0.0 Manual LAB 42094-9(L <=0.10 10E3/uL OINC) Imm Granulocytes 0.00 # Bld LAB 773-2(DEBRA <=5 NC) nRBC/100 RBC NFr Bld Manual LAB HSCAN(DEBRA NC) HSCAN RBC MORPHOLOGY SCAN LAB 702-1(DEBRA NONE SEEN NC) Anisocytosis Bld Ql Smear LAB 741-9(DEBRA NONE SEEN NC) Microcytes Bld Ql Smear LAB 738-5(DEBRA NONE SEEN NC) Macrocytes Bld Ql Smear LAB 728-6(DEBRA NONE SEEN NC) Hypochromia Bld Ql Smear LAB 95136-7(L NONE SEEN OINC) Polychromasia Bld Ql Smear LAB 7797-4(LO NONE SEEN INC) Rouleaux Bld Ql Smear LAB 7789-1(LO NONE SEEN INC) Acanthocytes Bld Ql Smear LAB 7790-9(LO NONE SEEN INC) Irma Cells Bld Ql Smear LAB 774-0(DEBRA NONE SEEN NC) Ovalocytes Bld Ql Smear LAB 800-3(DEBRA NONE SEEN NC) Schistocytes Bld Ql Smear LAB 801-1(DEBRA NONE SEEN NC) Sickle Cells Bld Ql Smear LAB 802-9(DEBRA NONE SEEN NC) Spherocytes Bld Ql Smear LAB 45032-6(L NONE SEEN OINC) Stomatocytes Bld Ql Smear LAB 16193-3(L NONE SEEN OINC) Targets Bld Ql Smear LAB 7791-7(LO NONE SEEN INC) Dacryocytes Bld Ql Smear LAB 69167-0(L NONE SEEN OINC) Cristian Bodies Bld Ql Smear LAB 703-9(DEBRA NONE SEEN NC) Baso Stipl Bld Ql Smear LAB 06463-5(L NONE SEEN OINC) Stewardson rings Bld Ql Smear LAB 7792-5(LO NONE SEEN INC) Dohle Bod Bld Ql Smear LAB 28002-4(L NONE SEEN OINC) Alban Bod Bld Ql LAB 7793-3(LO NONE SEEN INC) [place] Bod Bld Ql Smear LAB 7795-8(LO NONE SEEN INC) Pappenheimer Bod Bld Ql Smear LAB 803-7(DEBRA NONE SEEN NC) Toxic Granules Bld Ql Smear LAB 61774-3(L NONE SEEN OINC) WBC toxic vacuoles Bld Ql Smear LAB 5908-9(LO NONE SEEN INC) Giant Platelets Bld Ql Smear LAB 7796-6(LO NONE SEEN INC) Platelet Clump Bld Ql Smear LAB 70155-4(L NONE SEEN OINC) Plat morph Bld Performed By: #### 15553-1 #### [place] [address] [address] [place] [address] Automatic Seamer - Vonnie LAKHANI [id number] Performed for [place] [address] [address] [place] [address] [place] 27 29 Collected: 08/31/2017 Status: F Source: [facility] 1:22 PM HOSPITAL REPOSITORY TYPE CODE TESTS RESULT OUT OF RANGE REFERENCE UNITS LAB 063921(LOIN 0.0-38.6 U/mL C) 94261-4 32.3 Result Comment: Madeline Centaur/ACS methodology Performed By: #### [id number] #### Performed for [facility] [address] [place], [place] [address] ALLERGIES ALLERGIES DATE TYPE / CODE NAME / CODE REACTION SEVERITY SOURCE 07/13/2018 Drug No Known Unknown [facility] Allergy/4160 Allergies/F00 Hospital 78541(SNOMED 1988628(RXNOR Repository CT) M) 03/20/2015 Drug No Known Drug UNKNOWN [facility] Allergy/4160 Allergies/900 Hospital 99893(SNOMED 590(RXNORM) Repository CT) ENCOUNTERS ENCOUNTERS ADMIT/DISCHARGE ACCOUNT ADMITTING ENCOUNTER LOCATION SOURCE NUMBER CLASS 07/13/2018 [id number] Ambulatory [facility] Hospital ing:OMD Repository 07/13/2018 [id number] Ambulatory BMSBuilding:B Lopez MS.[facility] Repository 07/05/2018 [id number] Ambulatory BMSBuilding:B Robinson MS.CF.[facility] Repository 06/22/2018/06/22/19 [id number] Ambulatory BMSBuilding:B Robinson 19 MS.[facility] Repository 06/07/2018/06/07/20 [id number] Ambulatory BMSBuilding:B Robinson 18 MS.CF.[facility] Repository 06/07/2018/06/07/20 [id number] Ambulatory [address] Hospital ing:SDCRoom: Repository AC06 05/20/2018 [id number] Ambulatory [facility] Hospital ing:MRI Repository 05/18/2018/05/18/20 [id number] Ambulatory BMSBuilding:B Robinson 18 MS.[facility] Repository 05/10/2018 [id number] Ambulatory BMSBuilding:B Lopez MS.CF.[facility] Repository 05/10/2018/05/10/20 [id number] Ambulatory BMSBuilding:B Robinson 18 MS.[facility] Repository 05/03/2018 [id number] Ambulatory [facility] ing:LABSPEC Repository 05/03/2018/05/03/20 [id number] Ambulatory BMSBuilding:B Lopez 18 [facility] Repository 05/02/2018 [id number] Ambulatory BMSBuilding:B Robinson MS.CF.[facility] Repository 04/28/2018 [id number] Ambulatory [facility] ing:OPBI Repository 04/25/2018 [id number] Ambulatory BMSBuilding:B Robinson MS.CF.[facility] Repository 04/12/2017/03/22/20 [id number] SRUTHI, Ambulatory [address] - Repository LiveBuilding: OUTPATIENT PAYERS PAYERS ENCOUNTER GUARANTOR PAYER SUBSCRIBER SOURCE 07/13/2018 ARANZA B Primary ARANZA B Lopez [id number] Insurance:AETNA MENDENHALLDOB: [facility] Number: [id number] [id number] Repository [address]Ftx: [phone]) Date:1440-16-32YX [phone] () [place] [address]DM: 07/13/2018 Secondary NOT GIVENUNK Robinson Insurance:SELF PAY [facility] Number: Effective Repository Date:2018-04-20 07/13/2018 ARANZA B Primary ARANZA B Lopez [id number] Insurance:AETNA MENDENHALLDOB: [facility] Number: [id number], [place] [id number] Repository [address]Kqq: [phone]) Date:7852-82-30GA [phone] () 7867[address]MG [place] [address]GU: 07/13/2018 Secondary NOT GIVENUNK Lopez Insurance:SELF PAY [facility] Number: Effective Repository Date:2018-07-13 07/05/2018 ARANZA B Primary ARANZA B Lopez [id number] Insurance:AETNA MENDENHALLDOB: Community [place] MCRPolicy Number: [id number], [place] [id number] Repository [address]Dih: ([phone]) Date:4414-61-22QO [phone] () [id number] [place] [address]QX: 07/05/2018 Secondary NOT GIVENUNK Lopez Insurance:SELF PAY [facility] Number: Effective Repository Date:2018-07-05 06/22/2018 ARANZA B Primary ARANZA B Robinson [id number] Insurance:AETNA MENDENHALLDOB: [facility] [place] [facility] Number: [id number], [place] [id number] Repository [address]Osb: ([phone]) Date:2543-36-03JV [phone] () 592499[place] [address]YA: 06/22/2018 Secondary NOT GIVENUNK Robinson Insurance:SELF PAY [facility] Number: Effective Repository Date:2018-06-20 06/07/2018 ARANZA B Primary ARANZA B Lopez [id number] Insurance:AETNA MENDENHALLDOB: [facility] [facility] Number: [id number], [place] [id number] Repository [address]Qod: ([phone]) Date:2899-39-01OW [phone] () 799[place]MXSOU[place] [address]HD: 06/07/2018 Secondary NOT GIVENUNK Robinson Insurance:SELF PAY [facility] Number: Effective Repository Date:2018-06-07 06/07/2018 ARANZA B Primary ARANZA B Lopez [id number] Insurance:AETNA MENDENHALLDOB: Community [place] [facility] Number: [id number], [place] [id number] Repository [address]Vzp: (330) Date:2974-98-84OV [phone] (HP) [id number] [place] [address]PP: 06/07/2018 Secondary NOT GIVENUNK Robinson Insurance:SELF PAY [facility] Number: Effective Repository Date:2018-05-25 05/20/2018 ARANZA B Primary ARANZA B Lopez [id number] Insurance:AETNA MENDENHALLDOB: Community [place] [facility] Number: [id number], [place] [id number] Repository [address]Tyk: ([phone]) Date:5767-71-46IO [phone] (HP) [id number] [place] [address]OS: 05/20/2018 Secondary NOT GIVENUNK Lopez Insurance:SELF PAY [facility] Number: Effective Repository Date:2018-05-10 05/18/2018 ARANZA B Primary ARANZA B Lopez [id number] Insurance:AETNA MENDENHALLDOB: Community [place] [facility] Number: [id number], [place] [id number] Repository [address]Lpg: ([phone]) Date:2188-07-92ZW [phone] () 375427GW [place] [address]EZ: 05/18/2018 Secondary NOT GIVENUNK Robinson Insurance:SELF PAY [facility] Number: Effective Repository Date:2018-04-20 05/10/2018 ARANZA B Primary ARANZA B Robinson [id number] Insurance:AETNA MENDENHALLDOB: Community [place] [facility] Number: [id number], [place] [id number] Repository [address]Uge: (330) Date:2972-59-94DZ [phone] (HP) [id number] [place] [address]IX: 05/10/2018 Secondary NOT GIVENUNK Lopez Insurance:SELF PAY [facility] Number: Effective Repository Date:2018-05-10 05/10/2018 ARANZA B Primary ARANZA B Lopez [id number] Insurance:AETNA MENDENHALLDOB: Community [place] MCRPolicy Number: [id number], [place] [id number] Repository [address]Jqp: ([phone]) Date:2339-55-51LL [phone] () 289848QBSOUTH [place] [address]UE: 05/10/2018 Secondary NOT GIVENUNK Robinson Insurance:SELF PAY [facility] Number: Effective Repository Date:2018-05-10 05/03/2018 ARANZA B Primary ARANZA B Lopez [id number] Insurance:AETNA MENDENHALLDOB: [facility] Number: [id number], [place] [id number] Repository [address]Tcq: ([phone]) Date:2589-38-20NB [phone] () 336259AFSOUTH [place] [address]BO: 05/03/2018 Secondary NOT GIVENUNK Robinson Insurance:SELF PAY [facility] Number: Effective Repository Date:2018-05-03 05/03/2018 ARANZA B Primary ARANZA B Lopez [id number] Insurance:AETNA MENDENHALLDOB: [facility] [facility] Number: [id number], [place] [id number] Repository [address]Yta: ([phone]) Date:8116-16-85SC [phone] () 652246MLSOU[place] [address]VG: 05/03/2018 Secondary NOT GIVENUNK Robinson Insurance:SELF PAY [facility] Number: Effective Repository Date:2018-05-03 05/02/2018 ARANZA B Primary ARANZA B Lopez [id number] Insurance:AETNA MENDENHALLDOB: Community [place] [facility] Number: [id number], [place] [id number] Repository [address]Wwz: (330) Date:5615-07-06FW [phone] (HP) [id number] [place] [address]YG: 05/02/2018 Secondary NOT GIVENUNK Lopez Insurance:SELF PAY [facility] Number: Effective Repository Date:2018-05-02 04/28/2018 ARANZA B Primary ARANZA B Lopez [id number] Insurance:AETNA MENDENHALLDOB: Community [facility] [facility] Number: [id number], [place] [id number] Repository [address]Trd: (330) Date:8115-19-22TS [phone] (HP) [id number] [place] [address]SS: 04/28/2018 Secondary NOT GIVENUNK Robinson Insurance:SELF PAY [facility] Number: Effective Repository Date:2018-04-26 04/25/2018 ARANZA B Primary ARANZA B Lopez [id number] Insurance:AETNA MENDENHALLDOB: [facility] Number: [id number], [place] [id number] Repository [address]Oha: (330) Date:1295-43-60XI [phone] (HP) [id number] [place] [address]UT: 04/25/2018 Secondary NOT GIVENUNK Lopez Insurance:SELF PAY [facility] Number: Effective Repository Date:2018-04-25 04/12/2017 ARANZA B Primary ARANZA B Fox [facility] MENDENHALLDOB: Insurance:AETNA MENDENHALLDOB: Hospital MEDICAREPolicy [id number] Repository [place] Number: [address] [place], [place] NCUAMX8LTgyrumune [place], [place] [address]Ntq: (330) Date:1319-09-50IH [phone] (HP) [id number] KeatonRODNEY [address]PA:
== END 2018-06-07 14:09 | disposition home or self-care (01) ==
LOC: SDC 07:20 → AC 07:20
PROVIDERS: Family Provider Internal Medicine; PCP Internal Medicine; Referring Provider Surgery; Visit Provider Surgery
PROC: (CPT 19301; principal; 2018-06-07 09:45)
DX: C50.911 Malignant neoplasm of unspecified site of right female breast (principal); C77.3 Secondary and unspecified malignant neoplasm of axilla and upper limb lymph nodes; Z17.0 Estrogen receptor positive status [ER+]; Z85.3 Personal history of malignant neoplasm of breast
CPT/HCPCS: 19285; 19301; 38500; 38792; 76098; 88305; 88307; 88331; 88332; 88341; 88342; A9541; J7120; J2405; J3490; Q9968

== ENCOUNTER → 2018-07-29 08:20 | Outpatient (CLI) | payer MEDICARE, SELFPAY ==
[2018-07-19 09:13] VITALS: BMI 25.0
[2018-07-20 13:19] VITALS: BMI 25.0
[2018-07-29 09:11] LABS: Cholesterol 165 mg/dL (200); High Density Lipoprotein 34 mg/dL; Triglycerides 131 mg/dL; Very Low Density Lipoprotein 26 mg/dL (5-40)
== END ==
PROVIDERS: Family Provider Internal Medicine; PCP Internal Medicine; Referring Provider Internal Medicine; Visit Provider Internal Medicine
DX: I10 Essential (primary) hypertension (principal)
CPT/HCPCS: 36415; 36591; 80061; A4216

== ENCOUNTER → 2018-12-19 11:57 | Outpatient (CLI) | payer MEDICARE, SELFPAY ==
[2018-10-11 10:20] VITALS: BMI 24.7
[2018-12-19 11:04] VITALS: BMI 22.4
[2018-12-19 12:16] LABS: Color, Urine Yellow (Yellow); Glucose, Dipstick Normal (Normal); Ketone-Dipstick Negative (Negative); Leukocyte Esterase-Dipstick Negative /ul (Negative); Nitrite-Dipstick Negative (Negative); Occult Blood-Urine Negative /ul (Negative); Protein-Dipstick Negative (Negative); Specific Gravity, Urine 1.025 (1.002-1.030); Urine Bilirubin Dipstick Negative (Negative); Urine Clarity Sl. Cloudy (Clear); Urine Urobilinogen Normal (Normal)
[2018-12-19 12:20] LABS: Bacteria RARE /hpf (None Seen); Red Blood Cells-Urine 0-5 SEEN /hpf (0-5); Squamous Epithelial Cells - UA 0-5 SEEN /hpf (5-10)
[2018-12-19 12:23] LABS: Mucous, Urine RARE /hpf (<or=2+); White Blood Cells 0-5 SEEN /hpf (0-5)
== END ==
PROVIDERS: Family Provider Internal Medicine; PCP Internal Medicine; Visit Provider Internal Medicine
DX: R82.998 Other abnormal findings in urine (principal)
CPT/HCPCS: 81001

== ENCOUNTER → 2019-05-01 10:52 | Outpatient (CLI) | payer MEDICARE, SELFPAY ==
[2018-10-11 10:20] VITALS: BMI 24.7
[2018-11-23 10:15] VITALS: BMI 23.6
[2019-04-24 13:36] VITALS: BMI 24.3
--- NOTE | 2019-05-01 10:54 | BI_ITS ---
MAMMOGRAPHY - BILATERAL SCREENING REASON FOR EXAM: Female, 69 years old. Routine annual screening examination. PERTINENT HISTORY: Personal history of breast cancer. Prior right lumpectomy with chemotherapy and radiation therapy. Remote left lumpectomy with chemotherapy and radiation therapy. TECHNIQUE: Digital bilateral breast cassia (3D mammographic acquisition) in the CC and MLO projections. 2-D mediolateral oblique (MLO) and craniocaudad (CC) views of both breasts were obtained. CAD: Full Field Digital Mammography with Computer Added Detection was performed. COMPARISON: Comparison is made with prior mammogram dated April 28, 2018 and outside study dated May 07, 2017. FINDINGS: Breast Composition: The breasts are heterogeneously dense, which may obscure small masses. Stable deformity with calcifications in the inferior deep portion of the left breast incomplete with prior lumpectomy. Postoperative calcifications are once again seen. Since prior study, the patient underwent resection of the right retroareolar mass with postoperative scarring. The port is seen in the right axillary region. No other significant abnormalities are identified. BI/SCREEN MAMM (CAD) W/CASSIA BILAT IMPRESSION: Stable appearance of the left breast. Since prior study, the patient underwent a right-sided lumpectomy with postoperative changes. Yearly follow-up mammogram recommended. (A) ASSESSMENT CATEGORY: BIRADS Category 2: Benign. A letter regarding these results will be sent to the patient by the facility within 30 days. Approximately 10% of breast cancers are not detected by mammography. A normal mammogram should not delay biopsy of a clinically suspicious abnormality. [id number] Electronically Signed: Ismael Winters, at 12:29 EST , Service support ,
== END ==
PROVIDERS: Family Provider Internal Medicine; PCP Internal Medicine; Referring Provider Student in an Organized Health Care Education/Training Program; Visit Provider Student in an Organized Health Care Education/Training Program
DX: Z12.31 Encounter for screening mammogram for malignant neoplasm of breast (principal); Z85.3 Personal history of malignant neoplasm of breast
CPT/HCPCS: 77063; 77067

== ENCOUNTER → 2019-06-15 13:50 | Outpatient (CLI) | payer MEDICARE, SELFPAY ==
[2018-10-11 10:20] VITALS: BMI 24.7
[2019-04-24 13:36] VITALS: BMI 24.3
== END ==
PROVIDERS: Family Provider Internal Medicine; PCP Internal Medicine; Referring Provider Internal Medicine Hematology & Oncology; Visit Provider Internal Medicine Hematology & Oncology
DX: Z00.00 Encounter for general adult medical examination without abnormal findings (principal)

== ENCOUNTER → 2019-06-20 13:47 | Outpatient (CLI) | payer MEDICARE, SELFPAY ==
[2018-10-11 10:20] VITALS: BMI 24.7
[2019-04-24 13:36] VITALS: BMI 24.3
--- NOTE | 2019-06-20 13:57 | BD_ITS ---
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 COMPARISON: None. FINDINGS: Lumbar Spine (L1-L4): g/cm2 (1.079) / T-score (-0.8) / Z-score (0.8) Findings are suggestive of normal bone density with a low fracture risk. Left Femur Total: g/cm2 (0.817) / T-score (-1.5) / Z-score (-0.1) Left Femoral Neck: g/cm2 (0.764) / T-score (-2.0) / Z-score (-0.3) Right Femur Total: g/cm2 (0.816) / T-score (-1.5) / Z-score (-0.1) Right Femoral Neck: g/cm2 (0.794) / T-score (-1.8) / Z-score (-0.1) BD/Dexa Bone Density Study IMPRESSION: The patient is considered osteopenic as outlined below according to World [place] Organization (WHO) criteria with a moderate fracture risk. Reference Information: The T-score is the number of standard deviations above or below the standard which is normal for young adults at their peak bone mineral density. The World Health Organization (WHO) interprets the T-scores as follows: Above -1 Normal bone density Between -1 and -2.5 Osteopenia Equal to / or below -2.5 Osteoporosis As a practical clinical guideline, osteopenia may be graded as follows: Mild -1 through -1.5 Moderate -1.6 through -2.0 Severe -2.1 through -2.4 The Z-score is the number of standard deviations above or below age-matched controls. A Z-score of less than -1.5 would be considered abnormal. References: 1. NIH Osteoporosis and Related Bone Diseases http://www.osteo.org 2. International Society for Clinical Densitometry http://www.iscd.org 3. National Osteoporosis Foundation http://www.nof.org Electronically Signed: Ismael Winters, at 10:10 EST , Service support ,
== END ==
PROVIDERS: Family Provider Internal Medicine; PCP Internal Medicine; Referring Provider Internal Medicine; Visit Provider Internal Medicine
DX: M85.89 Other specified disorders of bone density and structure, multiple sites (principal)
CPT/HCPCS: 77080

== ENCOUNTER → 2020-05-02 13:58 | Outpatient (CLI) | payer MEDICARE, SELFPAY ==
[2018-10-11 10:20] VITALS: BMI 24.7
[2020-02-22 13:51] VITALS: BMI 26.5
--- NOTE | 2020-05-02 13:58 | BI_ITS ---
MAMMOGRAPHY - BILATERAL SCREENING REASON FOR EXAM: Female, 70 years old. Routine annual screening examination. PERTINENT HISTORY: Personal history of breast cancer. Prior bilateral lumpectomies. TECHNIQUE: Digital bilateral breast cassia (3D mammographic acquisition) in the CC and MLO projections. 2-D mediolateral oblique (MLO) and craniocaudad (CC) views of both breasts were obtained. CAD: Full Field Digital Mammography with Computer Added Detection was performed. COMPARISON: Comparison is made with prior study dated 05/01/2019 and 06/07/2018. FINDINGS: Breast Composition: The breasts are heterogeneously dense, which may obscure small masses. There are no dominant masses or suspicious calcifications. The patient is status post lumpectomy in the inferior medial aspect of the left breast with postoperative deformity and postoperative dystrophic calcification. The patient is also status post lumpectomy in the inferior retroareolar region of the right breast. Stable postoperative scarring is seen. No other significant abnormalities are identified. There has been no significant change since the prior study. BI/SCREEN MAMM (CAD) W/CASSIA BILAT IMPRESSION: Stable bilateral screening mammogram. Yearly follow-up mammogram recommended. (A) ASSESSMENT CATEGORY: BIRADS Category 2: Benign. A letter regarding these results will be sent to the patient by the facility within 30 days. Approximately 10% of breast cancers are not detected by mammography. A normal mammogram should not delay biopsy of a clinically suspicious abnormality. [id number] Electronically Signed: Ismael Winters, at 14:47 EST , Service support ,
== END ==
PROVIDERS: PCP Internal Medicine; Referring Provider Internal Medicine Hematology & Oncology; Visit Provider Internal Medicine Hematology & Oncology
DX: Z12.31 Encounter for screening mammogram for malignant neoplasm of breast (principal); Z85.3 Personal history of malignant neoplasm of breast
CPT/HCPCS: 77063; 77067

== ENCOUNTER 2020-08-19 17:05 | Outpatient (RCR) | payer MEDICARE, SELFPAY ==
[2018-10-11 10:20] VITALS: BMI 24.7
[2020-07-29 14:08] VITALS: BMI 27.3
== END 2020-08-19 23:59 ==
LOC: IMMUN 17:05
PROVIDERS: PCP Internal Medicine; Visit Provider Family Medicine
DX: Z23 Encounter for immunization (principal)
CPT/HCPCS: 0011A; 0012A

== ENCOUNTER → 2021-01-23 15:40 | Outpatient (CLI) | payer MEDICARE, SELFPAY ==
[2018-10-11 10:20] VITALS: BMI 24.7
[2021-01-23 15:20] VITALS: BMI 27.4
[2021-01-23 16:35] LABS: Absolute Lymphocyte Count 2.07 X10^3/uL (0.83-4.51); Absolute Neutrophil Count 3.4 X10^3/uL (2.0-7.7); Basophil% 1.6 % (0-1); Eosinophil# 0.25 X10^3/uL; Eosinophils% 3.9 % (0-5); Hematocrit 40.2 % (37-47); Hemoglobin 13.3 g/dL (12.0-15.0); Lymphocyte # 2.07 X10^3/ul (0.83-4.51); Lymphocyte % 32.5 % (19-41); Mean Corp Hgb Conc 33.1 g/dL (32-36); Mean Corpuscular Hgb 30.3 pg (27.0-32.0); Mean Corpuscular Volume 91.6 fL (81-99); Mean Platelet Vol. 9.8 fl (6.2-12.0); Monocyte# 0.55 X10^3/uL; Monocyte% 8.6 % (0-10); NRBC Flagged by Analyzer 0 % (0-5); Neutrophil # 3.38 X10^3/uL (2.7-7.7); Neutrophil % 53.2 % (47-70); Platelet Count 262 K/mm3 (150-450); RBC Distribution Width SD 44.3 fl (35.1-43.9); Red Blood Count 4.39 M/mm3 (4.2-5.4); White Blood Count 6.4 K/mm3 (4.4-11.0)
[2021-01-23 16:52] LABS: AST(SGOT) 16 U/L (15-37); Alanine Aminotransfer ALT/SGPT 21 U/L (13-56); Albumin, Serum 3.9 g/dL (3.2-5.0); Alkaline Phosphatase 65 U/L (45-117); Anion Gap 10 (5-15); BUN 23 mg/dL (7-18); BUN/Creat Ratio 24.6 RATIO (10-20); Calcium,Total 9.8 mg/dL (8.5-10.1); Chloride 103 mmol/L (98-107); Cholesterol 244 mg/dL (200); Creatinine, Serum 0.94 mg/dL (0.55-1.02); EST Glomerular Filtration Rate 63 mL/min (>60); Est Glom Filt Rate - Afr Amer 76 mL/min (>60); Globulin 3.8 g/dL (2.2-4.2); Glucose 95 mg/dL (74-106); High Density Lipoprotein 61 mg/dL; Potassium 3.7 mmol/L (3.5-5.1); Protein, Total 7.7 g/dL (6.4-8.2); Sodium Level 139 mmol/L (136-145); Triglycerides 113 mg/dL; Very Low Density Lipoprotein 23 mg/dL (5-40)
== END ==
PROVIDERS: PCP Internal Medicine; Referring Provider Internal Medicine; Visit Provider Internal Medicine
DX: I10 Essential (primary) hypertension (principal); C50.912 Malignant neoplasm of unspecified site of left female breast
CPT/HCPCS: 36415; 80053; 80061; 85025

== ENCOUNTER → 2021-01-24 10:20 | Outpatient (CLI) | payer MEDICARE, SELFPAY ==
[2018-10-11 10:20] VITALS: BMI 24.7
[2021-01-23 15:20] VITALS: BMI 27.4
--- NOTE | 2021-01-24 10:28 | EKG12_ITS ---
Test Reason : HTN,PREOP Blood Pressure : / mmHG Vent. Rate : 075 BPM Atrial Rate : 075 BPM P-R Int : 130 ms QRS Dur : 072 ms QT Int : 396 ms P-R-T Axes : 061 -26 049 degrees QTc Int : 442 ms Normal sinus rhythm Poor R wave progression Confirmed by TEQUILA WILKINS, SOPHIE ([id number]), photo editor BETSY RAMOS ([id number]) on 01/27/2021 10:06:41 AM Referred By: Dalton Bonilla Confirmed By:SOPHIE MANDEL MD
== END ==
PROVIDERS: PCP Internal Medicine; Referring Provider Internal Medicine; Visit Provider Internal Medicine
DX: I10 Essential (primary) hypertension (principal)
CPT/HCPCS: 93005

== ENCOUNTER → 2021-05-07 15:14 | Outpatient (CLI) | payer MEDICARE, SELFPAY ==
[2018-10-11 10:20] VITALS: BMI 24.7
--- NOTE | 2021-05-07 15:15 | BI_ITS ---
MAMMOGRAPHY - BILATERAL SCREENING REASON FOR EXAM: Female, 71 years old. Routine annual screening examination. PERTINENT HISTORY: Personal history of breast cancer. Patient is status post bilateral lumpectomies. TECHNIQUE: Digital bilateral breast cassia (3D mammographic acquisition) in the CC and MLO projections. 2-D mediolateral oblique (MLO) and craniocaudad (CC) views of both breasts were obtained. CAD: Full Field Digital Mammography with Computer Added Detection was performed. COMPARISON: Comparison is made with prior study dated 05/02/2020 and 05/01/2019. FINDINGS: Breast Composition: The breasts are heterogeneously dense, which may obscure small masses. There are no dominant masses or suspicious calcifications. Surgical clips are seen in the deep inferior medial aspect of the left breast as well as in the deep inferior central portion of the right breast with postoperative scarring and architectural distortion. There is evidence of stable dystrophic calcifications at the lumpectomy site in the left breast. A port is seen in the right axillary region. No other significant abnormalities are identified. There has been no significant change since the prior study. BI/SCRN MAMM (CAD)W/CASSIA BILAT IMPRESSION: Stable bilateral screening mammogram. Yearly follow-up mammogram recommended. (A) ASSESSMENT CATEGORY: BIRADS Category 2: Benign. A letter regarding these results will be sent to the patient by the facility within 30 days. Approximately 10% of breast cancers are not detected by mammography. A normal mammogram should not delay biopsy of a clinically suspicious abnormality. [id number] Electronically Signed: Ismael Winters MD at 8:19 EST , Service support ,
== END ==
PROVIDERS: PCP Internal Medicine; Referring Provider Internal Medicine Hematology & Oncology; Visit Provider Internal Medicine Hematology & Oncology
DX: Z12.31 Encounter for screening mammogram for malignant neoplasm of breast (principal); Z85.3 Personal history of malignant neoplasm of breast; M85.80 Other specified disorders of bone density and structure, unspecified site; Z45.2 Encounter for adjustment and management of vascular access device
CPT/HCPCS: 77063; 77067; 96372; 96523; A4216; J0897

== ENCOUNTER 2021-12-22 03:11 | Emergency (ER) | payer MEDICARE, SELFPAY ==
[2018-10-11 10:20] VITALS: BMI 24.7
[2021-12-22 03:12] VITALS: BP 124/72; PULSE 94; RESP 16; TEMP 36.8; O2SAT 98; BMI 25.7
--- NOTE | 2021-12-22 03:24 | RAD_ITS ---
STUDY: X-RAY CHEST REASON FOR EXAM: Female, 71 years old. cough, fever TECHNIQUE: Single AP portable view of the chest. COMPARISON: None. FINDINGS: Mediporte on the right side its tip is in the right atrium. The lungs are clear and expanded. There is no demonstrated pleural abnormality. Normal size heart. Normal mediastinum and monik. Normal visualized pulmonary arteries. Normal visualized aortic arch and descending thoracic aorta. There is a dextroscoliosis of the thoracic spine. Normal visualized ribs, clavicles, and shoulders. There is no demonstrated abnormality of the visualized soft tissue structures of the upper abdomen. RAD/Chest 1 View (Portable) IMPRESSION: No demonstrated acute cardiopulmonary process. Electronically Signed: Sharmila Olson MD at 4:40 EDT ,
--- NOTE | 2021-12-22 03:24 | EDS_ITS ---
HPI History of Present Illness Chief Complaint: General Illness Informant: patient Onset/Context/Timing Onset: Yesterday Context: Gradual Onset Timing: Continuous Quality: feels poorly Location: all over Current Severity: Severe Maximum Severity: Severe Worsened by: nothing Relieved by: nothing Associated Symptoms Associated Symptoms: fever, ST, cough, myalgias, nausea Associated Symptoms ED: cough Narrative Narrative: Patient with generalized malaise just feeling fatigued. She had a fever of over 100 a little earlier, she took Tylenol for it and now it is down but she still feels poorly. She has a cough without dyspnea, and it is nonproductive. No consider negative again congestion or earache no trouble breathing no chest pain, no abdominal pain but she has nauseated. No diarrhea. Significant myalgias and some headache. [facility] Medical History Abnormal EKG Cancer of left breast Cancer of right breast Depression port placement Preoperative evaluation to rule out surgical contraindication Home Medications calcium carbonate 600 mg-vitamin D3 5 mcg (200 unit) tablet 2 tab PO DAILY SUPPLEMENT 04/25/18 [History Last Taken Unknown] fpylycdsgzof-Kr-hmfp-minerals 1 tab PO DAILY SUPPLEMENT 04/25/18 [History Last Taken Unknown] Natali-C 500 mg Tablet 1 tab PO DAILY 04/24/19 [History Last Taken Unknown] anastrozole 1 mg tablet 1 mg PO DAILY 90 days #90 tabs 06/25/21 [Rx Last Taken Unknown] nirmatrelvir 300 mg (150 mg x 2)-ritonavir 100 mg tablet (EUA) (Paxlovid 300 mg () See Rx Instructions PO .COMPLEX #30 tabs 12/22/21 [Rx Last Taken Unknown] ondansetron 4 mg disintegrating tablet 8 mg PO Q8H PRN PRN Nausea #20 tabs 12/22/21 [Rx Last Taken Unknown] Allergy/AdvReac Type Severity Reaction Status Date / Time No Known Allergies Allergy Verified 12/22/21 03:12 Family History Father Cancer Surgical History History of hysterectomy History of lumpectomy Social History household members: spouse housing: house Smoking Status: Never smoker second hand exposure: No alcohol intake: never substance use type: does not use what type of physical activity do you participate in: none gabriel/rastafari: None seatbelt use: always do you feel safe at home: Yes ROS ROS ED Constitutional Constitutional ED: Reports body ache(s), chills, fatigue, fever(s), headache(s) and malaise Eyes Eyes: Denies change in vision or diplopia ENT ENT ED: Reports sore throat; Denies ear pain or rhinorrhea Cardiovascular Cardiovascular: Denies chest pain or palpitations Respiratory/Chest Respiratory/Chest: Reports cough Gastrointestinal Gastrointestinal: Reports nausea; Denies abdominal pain, diarrhea or vomiting Genitourinary Genitourinary ED: Denies dysuria or hematuria Musculoskeletal Musculoskeletal: Denies back pain or neck pain Integumentary Denies abscess or rash Neurologic Neurologic: Reports headache(s); Denies paresthesias or weakness Psychiatric Psychiatric: Denies anxiety or suicidal thoughts EXAM Physical Exam Const Vital Signs: 12/22/21 03:12 12/22/21 03:16 Temperature 98.2 F Temperature Source Temporal Pulse Rate 94 Respiratory Rate 16 Respiratory Effort Normal Respiratory Pattern Normal Blood Pressure 124/72 H Blood Pressure Mean 89 Pulse Ox 98 Oxygen Delivery Method Room Air Positive well nourished and well developed Constitutional Narrative: Malaised-appearing, no distress General Appearance ED: well developed and NAD HEENT Reports moist mucous membranes normocephalic and atraumatic Eyes PERRL and EOMs intact bilaterally Neck full ROM and supple Resp normal respiratory effort and clear to auscultation bilaterally Cardio regular rate, regular rhythm and no murmurs Rate: Negative for tachycardic GI non-tender and non-distended Auscultation: normoactive bowel sounds Palpation: soft Back/Spine no CVA tenderness General Back: other FROM Extremity normal to inspection and no calf tenderness General Extremety ED: Negative for edema, pulses abnormal or tenderness General Extremity: Negative for edema or pulses abnormal Neuro oriented x3, CN's II-XII intact bilaterally and no sensory deficits noted Sensorium / Orientation: awake and alert Motor Exam: strength 5/5 throughout Skin no rashes or lesions noted and no wounds MDM MDM MDM Narrative Medical decision making narrative: 1 view chest x-ray to my interpretation is normal with no acute abnormalities except for scoliosis of the spine. Her work-up is negative except for COVID swab which is positive. Her vital signs are normal including her pulse oximetry which is 98% on room air. She feels better after IV fluids, Zofran, Toradol. Being over 65 although she is vaccinated, she meets criteria for PAxlovid. We will give her a prescription, supportive care advised including pulse oximetry they have a meter at home. Lab Data Attestation: I reviewed the patient's lab results. Labs: Laboratory Results - last 24 hr 12/22/21 12/22/21 03:37 03:37 WBC 7.7 RBC 4.68 Hgb 13.9 Hct 42.7 MCV 91.2 MCH 29.7 MCHC 32.6 RDW Std Deviation 45.1 H RDW Coeff of Elvis 13.3 Plt Count 221 MPV 10.1 Immature Gran % (Auto) 0.400 Neut % (Auto) 80.6 H Lymph % (Auto) 8.7 L [place] % (Auto) 9.2 Eos % (Auto) 0.1 Baso % (Auto) 1.0 Absolute Neuts (auto) 6.2 Absolute Lymphs (auto) 0.67 L Nucleated RBC % 0 Urine Color Yellow Urine Clarity Clear Urine pH 6.0 Ur Specific [place] 1.020 Urine Protein 30 H Urine Glucose (UA) Normal Urine Ketones 50 H Urine Occult Blood Negative Urine Nitrite Negative Urine Bilirubin Negative Urine Urobilinogen Normal Ur Leukocyte Esterase 25 H Urine RBC 0 SEEN Urine WBC 0-5 SEEN Ur Squamous Epith Cells 0 SEEN Urine Bacteria 1+ Urine Mucus 0 SEEN Discharge Plan Triage Chief Complaint: General Illness ED Provider: Cristobal Huertas Dx/Rx/DC Orders Clinical Impression: COVID-19 Instructions: Coronavirus Disease 2019 (COVID-19): Caring for Yourself or Others Prescriptions: New ondansetron [ondansetron] 4 MG tablet 8 mg PO Q8H PRN PRN (Reason: Nausea) Qty: 20 0RF Paxlovid (EUA) 300 mg (150 mg x 2)-100 mg tablet See Rx Instructions .ROUTE .COMPLEX Qty: 30 0RF Rx Instructions: take TWO 150 mg tablets of nirmatrelvir with ONE 100 mg tablet of ritonavir twice daily for 5 days Continued anastrozole 1 mg tablet 1 mg PO DAILY 90 Days Qty: 90 3RF calcium carbonate-vitamin D3 1 EACH tablet 2 tab PO DAILY faauepthdxfa-Nd-vdct-minerals 1 EACH tablet 1 tab PO DAILY Rx Instructions: MULTIPLE VITAMIN FOR WOMEN OVER 65 Natali-C 500 mg Tablet 1 tab PO DAILY Primary Care Provider: Dalton Bonilla Referrals: Dalton Bonilla MD [Primary Care Provider] - As Needed Activity Restrictions/Additional Instructions: Try to get a home portable pulse oximeter and closely watch your oxygen levels periodically. If you stay below 90% for more than a minute or so, and/or you are feeling like your breathing is getting worse, return to the emergency department for further evaluation. Disposition Disposition: Home, Self Care
[2021-12-22] MEDS: Ondansetron 4 MG/2 ML Vial IV (03:44)
[2021-12-22] MEDS: Ketorolac 15 MG/ML Vial IV (03:44)
[2021-12-22 03:54] LABS: Mucous, Urine 0 SEEN /hpf (<or=2+); Red Blood Cells-Urine 0 SEEN /hpf (0-5); Squamous Epithelial Cells - UA 0 SEEN /hpf (5-10)
[2021-12-22 03:55] LABS: Color, Urine Yellow (Yellow); Glucose, Dipstick Normal (Normal); Ketone-Dipstick 50 mg/dl (Negative); Leukocyte Esterase-Dipstick 25 /ul (Negative); Nitrite-Dipstick Negative (Negative); Occult Blood-Urine Negative /ul (Negative); Protein-Dipstick 30 mg/dl (Negative); Urine Bilirubin Dipstick Negative (Negative); Urine Clarity Clear (Clear); Urine Urobilinogen Normal (Normal)
[2021-12-22 04:02] LABS: Bacteria 1+ /hpf (None Seen); White Blood Cells 0-5 SEEN /hpf (0-5)
[2021-12-22 04:05] LABS: Absolute Lymphocyte Count 0.67 X10^3/uL (0.83-4.51); Absolute Neutrophil Count 6.2 X10^3/uL (2.0-7.7); Basophil# 0.08 X10^3/uL; Eosinophil# 0.01 X10^3/uL; Eosinophils% 0.1 % (0-5); Hematocrit 42.7 % (37-47); Hemoglobin 13.9 g/dL (12.0-15.0); Lymphocyte # 0.67 X10^3/ul (0.83-4.51); Lymphocyte % 8.7 % (19-41); Mean Corp Hgb Conc 32.6 g/dL (32-36); Mean Corpuscular Hgb 29.7 pg (27.0-32.0); Mean Corpuscular Volume 91.2 fL (81-99); Mean Platelet Vol. 10.1 fl (6.2-12.0); Monocyte# 0.71 X10^3/uL; Monocyte% 9.2 % (0-10); NRBC Flagged by Analyzer 0 % (0-5); Neutrophil # 6.21 X10^3/uL (2.7-7.7); Neutrophil % 80.6 % (47-70); Platelet Count 221 K/mm3 (150-450); RBC Distribution Width CV 13.3 % (11.6-14.6); RBC Distribution Width SD 45.1 fl (35.1-43.9); Red Blood Count 4.68 M/mm3 (4.2-5.4); White Blood Count 7.7 K/mm3 (4.4-11.0)
[2021-12-22 04:25] LABS: Anion Gap 9 (5-15); BUN 18 mg/dL (7-18); BUN/Creat Ratio 18.8 RATIO (10-20); Calcium,Total 9.2 mg/dL (8.5-10.1); Chloride 105 mmol/L (98-107); Creatinine, Serum 0.96 mg/dL (0.55-1.02); EST Glomerular Filtration Rate 61 mL/min (>60); Est Glom Filt Rate - Afr Amer 74 mL/min (>60); Estimated Creatinine Clearance 42.51 ml/min; Glucose 125 mg/dL (74-106); Sodium Level 139 mmol/L (136-145)
[2021-12-22 04:46] VITALS: BP 120/70; PULSE 89; RESP 18; O2SAT 98
== END 2021-12-22 04:45 | disposition home or self-care (01) ==
PROVIDERS: Emergency Provider Emergency Medicine; PCP Internal Medicine; Visit Provider Emergency Medicine
DX: U07.1 COVID-19 (principal)
CPT/HCPCS: 71045; 80048; 81001; 85025; 87428; 96361; 96374; 96375; 99282; J7030; A4216; J2405

== ENCOUNTER 2022-02-18 13:17 | Emergency (ER) | payer MEDICARE, SELFPAY ==
[2018-10-11 10:20] VITALS: BMI 24.7
[2022-02-18 13:18] VITALS: BP 171/84; PULSE 78; RESP 18; TEMP 36.6; O2SAT 98; BMI 26.5
--- NOTE | 2022-02-18 13:58 | RAD_ITS ---
STUDY: X-RAY - RIGHT ANKLE REASON FOR EXAM: Female, 72 years old. Lateral ankle pain following injury. TECHNIQUE: 3 view(s) of the ankle. COMPARISON: None. FINDINGS: Normal visualized distal tibia and fibula. Normal medial and lateral malleoli. Normal tibiotalar articulation and ankle mortise. Tiny bony density is seen overlying the dorsal aspect of the distal portion of the talus. A tiny avulsion fracture should be ruled out. The visualized subtalar, talonavicular, calcaneocuboid and tarsal articulations are normal. Dorsal soft tissue swelling. RAD/Ankle min 3 Views IMPRESSION: Questionable tiny avulsion fracture of the distal portion of the talus with overlying soft tissue swelling. Electronically Signed: Ismael Winters MD at 14:21 EDT ,
--- NOTE | 2022-02-18 13:58 | RAD_ITS ---
STUDY: X-RAY - RIGHT FOOT CLINICAL: Female, 72 years old. Injury/Pain TECHNIQUE: 3 view(s) of the foot. COMPARISON: None. FINDINGS: Findings suggestive of an avulsion fracture along the dorsal aspect of the talus. Normal visualized subtalar, talonavicular, calcaneocuboid, tarsal and tarsometatarsal articulations. Normal metatarsi. Normal metatarsophalangeal joint of the great toe. Normal tibial and fibular sesamoid bones. Normal interphalangeal joint of the great toe. Normal phalanges of the great toe. Normal second through fifth metatarsophalangeal joints. Normal interphalangeal joints and phalanges of the lesser toes. Soft tissue swelling. RAD/Foot min 3 Views IMPRESSION: Findings suggestive of an avulsion fracture along the dorsal distal portion of the talus with overlying soft tissue swelling. Electronically Signed: Ismael Winters MD at 14:22 EDT ,
--- NOTE | 2022-02-18 14:39 | EDS_ITS ---
HPI History of Present Illness HPI Narrative: Patient presents with right foot and ankle injury that occurred today. Patient states she has been sitting and she stood up to walk. Patient states that her foot was having some tingling because of the sitting position she was in. Patient states she fell and twisted her right foot and ankle. Patient states the pain is over the lateral aspect of the right ankle. Patient denies any head injury or loss of consciousness. Patient describes her pain as dull. Patient admits to some tingling in her right foot. Patient denies any weakness. Patient denies any other injuries. Chief Complaint: Lower Extremity Injury Informant: patient Occured/Mechanism Mechanism/Context: Yes fall Onset/Context/Timing Onset: Today Context: Sudden Onset Timing: Continuous Quality of Pain: Dull Location: Right foot and ankle area Worsened by: Nothing Relieved by: Nothing Associated Symptoms Associated Symptoms: Positive for Parasthesia; Negative for Weakness or Loss of Funtion PFSH PFSH Medical History Abnormal EKG Cancer of left breast Cancer of right breast Depression port placement Preoperative evaluation to rule out surgical contraindication Home Medications calcium carbonate 600 mg-vitamin D3 5 mcg (200 unit) tablet 2 tab PO DAILY SUPPLEMENT 04/25/18 [History Last Taken Unknown] iejslcfxorqm-Gn-blzh-minerals 1 tab PO DAILY SUPPLEMENT 04/25/18 [History Last Taken Unknown] Natali-C 500 mg Tablet 1 tab PO DAILY 04/24/19 [History Last Taken Unknown] anastrozole 1 mg tablet 1 mg PO DAILY 90 days #90 tabs 06/25/21 [Rx Last Taken Unknown] ondansetron 4 mg disintegrating tablet 8 mg PO Q8H PRN PRN Nausea #20 tabs 12/22/21 [Rx Last Taken Unknown] Allergy/AdvReac Type Severity Reaction Status Date / Time No Known Allergies Allergy Verified 12/22/21 03:12 Family History Father Cancer Surgical History History of hysterectomy History of lumpectomy Social History household members: spouse housing: house Smoking Status: Never smoker second hand exposure: No alcohol intake: never substance use type: does not use what type of physical activity do you participate in: none gabriel/confucianist: None seatbelt use: always do you feel safe at home: Yes ROS ROS ED Constitutional Constitutional ED: Denies chills or fever(s) Eyes Eyes: Denies blurry vision or change in vision ENT ENT ED: Denies rhinorrhea or sore throat Cardiovascular Cardiovascular: Denies chest pain or palpitations Respiratory/Chest Respiratory/Chest: Denies cough or dyspnea Gastrointestinal Gastrointestinal: Denies nausea or vomiting Genitourinary Genitourinary ED: Denies dysuria or hematuria Musculoskeletal Musculoskeletal: Denies back pain or neck pain Integumentary Denies abscess or rash Neurologic Neurologic: Denies headache(s) or weakness Allergic/Immunologic Allergic/Immunologic ED: Denies mouth swelling or urticaria EXAM Physical Exam Const Vital Signs: 02/18/22 13:18 Temperature 97.8 F Temperature Source Temporal Pulse Rate 78 Respiratory Rate 18 Blood Pressure 171/84 H Blood Pressure Mean 113 Pulse Ox 98 Oxygen Delivery Method Room Air Positive well nourished and well developed General Appearance ED: well developed and NAD HEENT Reports moist mucous membranes Neck full ROM Extremity Extremity Narrative: There is tenderness, edema, and ecchymosis over the anterolateral aspect of the right hindfoot. There is no tenderness over the medial or lateral malleoli. There is no tenderness over the fifth metatarsal. There is no tenderness over the proximal fibula. There is no obvious deformity noted. There is no bony crepitance or step-off. Range of motion was slightly limited in all motions of the right ankle secondary to pain. Pedal pulses are equal bilaterally. Sensation was intact to light touch in all digits. Capillary refill was less than 2 seconds in all digits Neuro oriented x3, CN's II-XII intact bilaterally, moves all extremities and no sensory deficits noted Sensorium / Orientation: alert Motor Exam: strength 5/5 throughout Psych mental status grossly normal MDM MDM MDM Narrative Medical decision making narrative: X-rays of the right ankle were obtained. There are 3 views. On my interpretation, there is a questionable tiny avulsion fracture off the distal portion of the talus. There is no dislocation. There is some mild soft tissue swelling. Radiologist also interpreted the x-rays and agrees. X-rays of the right foot were obtained. There are 3 views. On my interpretation, there is a tiny avulsion fracture along the dorsal aspect of the distal talus. There is no dislocation. There is some mild soft tissue swelling. Radiologist also interpreted the x-rays and agrees. Patient was advised of her findings. Patient was given a walking boot. Patient was instructed to ice and elevate the right foot and ankle. Patient states she can take Tylenol or as needed for pain. Patient was instructed to follow-up with her primary care physician in 5 to 7 days. Patient understood and was agreeable with the plan. All questions were answered. Radiography Diagnostic Testing: Clinical Impression(s) from Imaging Studies Ankle X-Ray 02/18/22 13:58 IMPRESSION: Questionable tiny avulsion fracture of the distal portion of the talus with overlying soft tissue swelling. Electronically Signed: Ismael Winters MD at 14:21 EDT , Foot X-Ray 02/18/22 13:58 IMPRESSION: Findings suggestive of an avulsion fracture along the dorsal distal portion of the talus with overlying soft tissue swelling. Electronically Signed: Ismael Winters MD at 14:22 EDT , Discharge Plan Triage Chief Complaint: Lower Extremity Injury ED Provider: Stuart Dao Dx/Rx/DC Orders Clinical Impression: Avulsion fracture of right talus, Primary cancer of left female breast, Breast cancer, right breast Instructions: ED Fracture, Foot Prescriptions: No Action anastrozole 1 mg tablet 1 mg PO DAILY 90 Days Qty: 90 3RF calcium carbonate-vitamin D3 1 EACH tablet 2 tab PO DAILY ltixwphaglyf-Dc-rkhl-minerals 1 EACH tablet 1 tab PO DAILY Rx Instructions: MULTIPLE VITAMIN FOR WOMEN OVER 65 Natali-C 500 mg Tablet 1 tab PO DAILY ondansetron [ondansetron] 4 MG tablet 8 mg PO Q8H PRN PRN (Reason: Nausea) Qty: 20 0RF Primary Care Provider: Dalton Bonilla Referrals: Dalton Bonilla MD [Primary Care Provider] - 5-7 Days Disposition Disposition: Home, Self Care
== END 2022-02-18 15:18 | disposition home or self-care (01) ==
PROVIDERS: Emergency Provider Emergency Medicine; PCP Internal Medicine; Visit Provider Emergency Medicine
DX: S92.151A Displaced avulsion fracture (chip fracture) of right talus, initial encounter for closed fracture (principal); C50.912 Malignant neoplasm of unspecified site of left female breast; C50.911 Malignant neoplasm of unspecified site of right female breast; W19.XXXA Unspecified fall, initial encounter; F32.A Depression, unspecified
CPT/HCPCS: 73610; 73630; 99283

== ENCOUNTER → 2022-05-12 | Outpatient (CLI) | payer MEDICARE, SELFPAY ==
[2018-10-11 10:20] VITALS: BMI 24.7
--- NOTE | 2022-05-12 12:03 | BI_ITS ---
MAMMOGRAPHY - BILATERAL SCREENING REASON FOR EXAM: Female, 72 years old. Routine annual screening examination. PERTINENT HISTORY: Personal history of breast cancer. Bilateral lumpectomies and chemoradiation. TECHNIQUE: Digital bilateral breast cassia (3D mammographic acquisition) in the CC and MLO projections. 2-D mediolateral oblique (MLO) and craniocaudad (CC) views of both breasts were obtained. CAD: Full Field Digital Mammography with Computer Added Detection was performed. COMPARISON: 05/07/2021, 05/02/2020. FINDINGS: Breast Composition: The breasts are heterogeneously dense, which may obscure small masses. There are no dominant masses or suspicious calcifications. There are stable bilateral lumpectomy postoperative changes with associated scarring and architectural distortion. Stable bilateral benign-appearing dystrophic calcifications. Stable surgical clips in the right breast. Stable Mediport catheter in the right axilla. No other significant abnormalities are identified. There has been no significant change since the prior study. BI/SCRN MAMM (CAD)W/CASSIA BILAT IMPRESSION: Stable bilateral screening mammogram. Yearly follow-up mammogram recommended. (A) ASSESSMENT CATEGORY: BIRADS Category 2: Benign. A letter regarding these results will be sent to the patient by the facility within 30 days. Approximately 10% of breast cancers are not detected by mammography. A normal mammogram should not delay biopsy of a clinically suspicious abnormality. Electronically Signed: Jose Montana, at 8:32 EST ,
--- NOTE | 2022-05-12 12:15 | BD_ITS ---
STUDY: DUAL ENERGY X-RAY ABSORPTIOMETRY / DXA REASON FOR EXAM: Female, 72 years old. SCREENING TECHNIQUE: Bone Mineral Density (BMD) measurements of lumbar spine and bilateral hips were obtained. COMPARISON: Comparison is made with prior study dated 06/20/2019. FINDINGS: Lumbar Spine (L1-L4): g/cm2 (0.995) / T-score (-0.5) / Z-score (1.8) Findings are suggestive of normal bone density with a low fracture risk. Left Femur Total: g/cm2 (0.738) / T-score (-1.7) / Z-score (0.0) Left Femoral Neck: g/cm2 (0.636) / T-score (-1.9) / Z-score (0.0) Right Femur Total: g/cm2 (0.736) / T-score (-1.7) / Z-score (-0.1) Right Femoral Neck: g/cm2 (0.614) / T-score (-2.1) / Z-score (-0.2) The T-Scores on the most recent prior examination were: Lumbar Spine (L1-L4): There has been improvement of bone density since the previous examination. Left Femur Total: which represents a worsening of 2.4%. Right Femur Total: which represents a worsening of 2.5%. BD/Dexa Bone Density Study IMPRESSION: The patient is considered osteopenic as outlined below according to [place] Organization (WHO) criteria with a moderate fracture risk. There has been worsening of bone density since the previous examination. Reference Information: The T-score is the number of standard deviations above or below the standard which is normal for young adults at their peak bone mineral density. The World Health Organization (WHO) interprets the T-scores as follows: Above -1 Normal bone density Between -1 and -2.5 Osteopenia Equal to / or below -2.5 Osteoporosis As a practical clinical guideline, osteopenia may be graded as follows: Mild -1 through -1.5 Moderate -1.6 through -2.0 Severe -2.1 through -2.4 The Z-score is the number of standard deviations above or below age-matched controls. A Z-score of less than -1.5 would be considered abnormal. References: 1. NIH Osteoporosis and Related Bone Diseases www osteo.org 2. International Society for Clinical Densitometry www iscd.org 3. National Osteoporosis Foundation www nof.org Electronically Signed: Ismael Winters MD at 9:17 EST ,
== END | disposition home or self-care (01) ==
LOC: OPBD 12:01
PROVIDERS: PCP Internal Medicine; Visit Provider Internal Medicine Hematology & Oncology
DX: Z12.31 Encounter for screening mammogram for malignant neoplasm of breast (principal); M85.89 Other specified disorders of bone density and structure, multiple sites; Z85.3 Personal history of malignant neoplasm of breast
CPT/HCPCS: 77063; 77067; 77080

== ENCOUNTER → 2023-05-17 | Outpatient (CLI) | payer MEDICARE, SELFPAY ==
[2018-10-11 10:20] VITALS: BMI 24.7
--- NOTE | 2023-05-17 14:35 | BI_ITS ---
MAMMOGRAPHY - BILATERAL SCREENING REASON FOR EXAM: Female, 73 years old. Routine annual screening examination. PERTINENT HISTORY: Personal history of breast cancer. History of bilateral lumpectomies with radiation and chemotherapy. TECHNIQUE: Digital bilateral breast cassia (3D mammographic acquisition) in the CC and MLO projections. 2-D mediolateral oblique (MLO) and craniocaudad (CC) views of both breasts were obtained. CAD: Full Field Digital Mammography with Computer Added Detection was performed. COMPARISON: Comparison is made with prior examination dated May 12, 2022 and May 07, 2021. FINDINGS: Breast Composition: The breasts are heterogeneously dense, which may obscure small masses. The patient is status post lumpectomy in the deep inferior medial aspect of the right breast with the dystrophic dense calcification adjacent to the chest wall. Prior lumpectomy in the inferior central portion of the right breast with postoperative scarring. A port is seen in the right axilla. No other significant abnormalities are identified. There has been no significant change since the prior study. BI/SCRN MAMM (CAD)W/CASSIA BILAT IMPRESSION: Stable bilateral screening mammogram. Yearly follow-up mammogram recommended. (A) ASSESSMENT CATEGORY: BIRADS Category 2: Benign. A letter regarding these results will be sent to the patient by the facility within 30 days. Approximately 10% of breast cancers are not detected by mammography. A normal mammogram should not delay biopsy of a clinically suspicious abnormality. [id number] Electronically Signed: Ismael Winters MD at 13:44 EST ,
== END | disposition home or self-care (01) ==
LOC: OPBI 14:34
PROVIDERS: PCP Internal Medicine; Referring Provider Nurse Practitioner Family; Visit Provider Nurse Practitioner Family
DX: Z12.31 Encounter for screening mammogram for malignant neoplasm of breast (principal)
CPT/HCPCS: 77063; 77067

== ENCOUNTER → 2023-12-20 | Outpatient (CLI) | payer MEDICARE, SELFPAY ==
[2018-10-11 10:20] VITALS: BMI 24.7
[2023-12-20 17:11] LABS: Absolute Lymphocyte Count 2.05 X10^3/uL (0.83-4.51); Absolute Neutrophil Count 3.4 X10^3/uL (2.0-7.7); Basophil# 0.11 X10^3/uL; Basophil% 1.8 % (0-1); Eosinophil# 0.12 X10^3/uL; Hematocrit 38.3 % (37-47); Hemoglobin 12.1 g/dL (12.0-15.0); Lymphocyte # 2.05 X10^3/ul (0.83-4.51); Lymphocyte % 33.8 % (19-41); Mean Corp Hgb Conc 31.6 g/dL (32-36); Mean Corpuscular Hgb 28.9 pg (27.0-32.0); Mean Corpuscular Volume 91.4 fL (81-99); Mean Platelet Vol. 10.1 fl (6.2-12.0); Monocyte# 0.37 X10^3/uL; Monocyte% 6.1 % (0-10); NRBC Flagged by Analyzer 0 % (0-5); Neutrophil % 56.1 % (47-70); Platelet Count 319 K/mm3 (150-450); RBC Distribution Width CV 13.2 % (11.6-14.6); RBC Distribution Width SD 44.2 fl (35.1-43.9); Red Blood Count 4.19 M/mm3 (4.2-5.4); White Blood Count 6.1 K/mm3 (4.4-11.0)
[2023-12-20 18:16] LABS: ALB/GLOB Ratio 1.1 RATIO (0.9-2.4); AST(SGOT) 16 U/L (15-37); Alanine Aminotransfer ALT/SGPT 20 U/L (13-56); Alkaline Phosphatase 79 U/L (45-117); Anion Gap 8 (5-15); BUN 23 mg/dL (7-18); BUN/Creat Ratio 23.9 RATIO (10-20); Calcium,Total 10.7 mg/dL (8.5-10.1); Chloride 106 mmol/L (98-107); Creatinine, Serum 0.96 mg/dL (0.55-1.02); EST Glomerular Filtration Rate 60 mL/min (>60); Est Glom Filt Rate - Afr Amer 73 mL/min (>60); Globulin 3.7 g/dL (2.2-4.2); Glucose 104 mg/dL (74-106); Protein, Total 7.7 g/dL (6.4-8.2); Sodium Level 140 mmol/L (136-145); T4 Free Direct 1.18 ng/dL (0.76-1.46); Thyroid Stim Hormone (TSH) 2.16 uIU/mL (0.358-3.74)
[2023-12-20 21:52] LABS: Vitamin B12 1909 pg/mL (211-911)
== END | disposition home or self-care (01) ==
LOC: BIMLAB 15:30
PROVIDERS: PCP Internal Medicine; Referring Provider Internal Medicine; Visit Provider Internal Medicine
DX: I10 Essential (primary) hypertension (principal); R45.86 Emotional lability
CPT/HCPCS: 36415; 80053; 82607; 84439; 84443; 85025

== ENCOUNTER → 2023-12-27 | Outpatient (CLI) | payer MEDICARE, SELFPAY ==
[2018-10-11 10:20] VITALS: BMI 24.7
[2023-12-27 12:48] LABS: Vitamin D,25 Hydroxy 59.4 ng/mL
[2023-12-27 12:59] LABS: Cholesterol 227 mg/dL (200); High Density Lipoprotein 64 mg/dL; Triglycerides 137 mg/dL; Very Low Density Lipoprotein 27 mg/dL (5-40)
== END | disposition home or self-care (01) ==
LOC: BIMLAB 08:10
PROVIDERS: PCP Internal Medicine; Referring Provider Internal Medicine; Visit Provider Internal Medicine
DX: E83.52 Hypercalcemia (principal); E78.5 Hyperlipidemia, unspecified
CPT/HCPCS: 36415; 80061; 82306

== ENCOUNTER → 2024-05-25 | Outpatient (CLI) | payer MEDICARE, SELFPAY ==
[2018-10-11 10:20] VITALS: BMI 24.7
--- NOTE | 2024-05-25 12:40 | BI_ITS ---
MAMMOGRAPHY - BILATERAL SCREENING REASON FOR EXAM: Female, 74 years old. Routine annual screening examination. PERTINENT HISTORY: Personal history of breast cancer. Prior left lumpectomy with radiation and chemotherapy. Prior right lumpectomy with chemotherapy and radiation as well. TECHNIQUE: Digital bilateral breast cassia (3D mammographic acquisition) in the CC and MLO projections. 2-D mediolateral oblique (MLO) and craniocaudad (CC) views of both breasts were obtained. CAD: Full Field Digital Mammography with Computer Added Detection was performed. COMPARISON: Comparison is made with prior study dated May 17, 2023 and May 12, 2022. FINDINGS: Breast Composition: The breasts are heterogeneously dense, which may obscure small masses. There are no dominant masses or suspicious calcifications. The patient is status post lumpectomy in the deep inferior medial aspect of the left breast with dense dystrophic calcification adjacent to the chest wall. Overlying breast deformity. The patient is also status post lumpectomy in the deep inferior central portion of the right breast. Surgical clips are seen. A port is seen in the right axilla. No other significant abnormalities are identified. There has been no significant change since the prior study. BI/SCRN MAMM (CAD)W/CASSIA BILAT IMPRESSION: Stable bilateral screening mammogram. Yearly follow-up mammogram recommended. (A) ASSESSMENT CATEGORY: BIRADS Category 2: Benign. A letter regarding these results will be sent to the patient by the facility within 30 days. Approximately 10% of breast cancers are not detected by mammography. A normal mammogram should not delay biopsy of a clinically suspicious abnormality. [id number] Electronically Signed: Ismael Winters MD at 13:50 EST ,
--- NOTE | 2024-05-25 12:44 | BD_ITS ---
STUDY: DUAL ENERGY X-RAY ABSORPTIOMETRY / DXA REASON FOR EXAM: Female, 74 years old. BREAST CANCER TECHNIQUE: Bone Mineral Density (BMD) measurements of lumbar spine and bilateral hips were obtained. COMPARISON: Comparison is made with prior study May 12, 2022. FINDINGS: Lumbar Spine (L1-L4): g/cm2 (0.861) / T-score (-1.7) / Z-score (0.7) Findings are suggestive of osteopenia with a moderate fracture risk. Left Femur Total: g/cm2 (0.794) / T-score (-1.2) / Z-score (0.5) Left Femoral Neck: g/cm2 (0.754) / T-score (-0.9) / Z-score (1.2) Right Femur Total: g/cm2 (0.765) / T-score (-1.5) / Z-score (0.3) Right Femoral Neck: g/cm2 (0.575) / T-score (-2.5) / Z-score (-0.4) The T-Scores on the most recent prior examination were: Lumbar Spine (L1-L4): There has been worsening of bone density since the previous examination. Left Femur Total: which represents an improvement of 7.5%. Right Femur Total: which represents an improvement of 3.9%. BD/Dexa Bone Density Study IMPRESSION: The patient is considered osteoporotic as outlined below according to [place] Organization (WHO) criteria with a high fracture risk. There has been worsening of bone density since the previous examination. Reference Information: The T-score is the number of standard deviations above or below the standard which is normal for young adults at their peak bone mineral density. The World Health Organization (WHO) interprets the T-scores as follows: Above -1 Normal bone density Between -1 and -2.5 Osteopenia Equal to / or below -2.5 Osteoporosis As a practical clinical guideline, osteopenia may be graded as follows: Mild -1 through -1.5 Moderate -1.6 through -2.0 Severe -2.1 through -2.4 The Z-score is the number of standard deviations above or below age-matched controls. A Z-score of less than -1.5 would be considered abnormal. References: 1. NIH Osteoporosis and Related Bone Diseases www osteo.org 2. International Society for Clinical Densitometry www iscd.org 3. National Osteoporosis Foundation www nof.org Electronically Signed: Ismael Winters MD at 12:43 EST ,
== END | disposition home or self-care (01) ==
LOC: OPBD 12:40
PROVIDERS: PCP Internal Medicine; Referring Provider Internal Medicine Hematology & Oncology; Visit Provider Internal Medicine Hematology & Oncology
DX: Z12.31 Encounter for screening mammogram for malignant neoplasm of breast (principal); M81.0 Age-related osteoporosis without current pathological fracture
CPT/HCPCS: 77063; 77067; 77080

== ENCOUNTER → 2024-07-26 | Outpatient (CLI) | payer MEDICARE, SELFPAY ==
[2018-10-11 10:20] VITALS: BMI 24.7
[2024-07-26 12:56] LABS: PTHIN 74.3 pg/mL (18.4-80.1)
[2024-07-26 13:01] LABS: Cholesterol 220 mg/dL (200); High Density Lipoprotein 83 mg/dL; Triglycerides 65 mg/dL; Very Low Density Lipoprotein 13 mg/dL (5-40)
== END | disposition home or self-care (01) ==
LOC: BIMLAB 08:07
PROVIDERS: Internal Medicine Endocrinology, Diabetes & Metabolism; PCP Internal Medicine; Referring Provider Internal Medicine; Visit Provider Internal Medicine
DX: I10 Essential (primary) hypertension (principal); E83.52 Hypercalcemia; M81.0 Age-related osteoporosis without current pathological fracture
CPT/HCPCS: 36415; 80061; 83970

== ENCOUNTER → 2025-05-31 | Outpatient (CLI) | payer MEDICARE, SELFPAY ==
[2018-10-11 10:20] VITALS: BMI 24.7
--- NOTE | 2025-05-31 14:30 | BI_ITS ---
EXAM: SCRN MAMM (CAD)W/CASSIA BILAT DATE: 05/31/2025 CLINICAL HISTORY: F, Age 75 y/o , ANNUAL SCREENING Personal history of breast cancer. Prior left lumpectomy with chemotherapy and radiation. Prior right lumpectomy with chemotherapy and radiation. TECHNIQUE: Procedure Code: [id number] Modality: MG Procedure: SCRN MAMM (CAD)W/CASSIA BILAT COMPARISON: Prior exam(s) dated May 25, 2024.. FINDINGS: TISSUE DENSITY: The breasts are extremely dense, which lowers the sensitivity of mammography. Bilateral Breast Mammographic Findings: The patient is status post lumpectomy in the retroareolar region of the right breast with breast deformity and postoperative scarring. The patient is also status post lumpectomy in the deep inferior slightly medial portion of the left breast with dystrophic calcification and skin thickening and breast deformity. A port is seen in the right axilla. No suspicious masses, areas of developing architectural distortion, or suspicious calcifications. There has been no significant interval change. BI/SCRN MAMM (CAD)W/CASSIA BILAT IMPRESSION: Stable bilateral screening mammogram. OVERALL FINAL ASSESSMENT BI-RADS 2: BENIGN RECOMMENDATION: Routine annual follow-up in 1 Year Additional Recommendation none A letter with findings and recommendations will be mailed to the patient. Reading Location: [place] [id number]
--- OUTSIDE RECORDS SUMMARY | 2025-05-31 17:18 | XMS RPT_ITS | CCD ---
Author Organization [facility] Providers Care Stucco Mason Name Role Phone ALESHIA NEGRO Admitting Unavailable ALESHIA NEGRO Attending Unavailable NONE, NONE Primary Care Unavailable NONE, NONE Consulting Unavailable Dr. Dalton Bonilla Primary Care Provider Dr. Dalton Bonilla Referring Provider Dr. Wendi Bhat Attending Provider Dr. Dalton Bonilla Primary Care Provider Dr. Dalton Bonilla Attending Provider [phone] Dr. Dalton Bonilla Referring Provider [phone] Dr. Wendi Bhat Attending Provider KAYLA Villa Attending Provider Dr. Dalton Bonilla MD Primary Care Provider Dr. Dalton Bonilla MD Referring Provider [phone] Dr. Wendi Bhat MD Attending Provider Dr. Pablito Mares DO Referring Provider Chad Efewongsreekanth Primary Care Unavailable Wendi Bhat Attending Unavailable Pablito Mares Referring Unavailable Wendi Bhat Attending Unavailable Oleghe, Efewongbe Primary Care Unavailable Oleghe, Efewongbe Referring Unavailable Oleghe, Efewongbe Primary Care Unavailable Rojas Cox Attending Unavailable Chad, Efewongbe Referring Unavailable Wendi Bhat Attending Unavailable Oleghe, Efewongbe Referring Unavailable Oleghe, Efewongbe Primary Care Unavailable Oleghe, Efewongbe Attending Unavailable Dalton Bonilla Referring Unavailable Dalton Bonilla Primary Care Unavailable Wendi Bhat Attending Unavailable Wendi Bhat Referring Unavailable Dalton Bonilla Primary Care Unavailable Medications Current Medications Medication Drug Class(es) Dates Sig (Normalized) Sig (Original) anastrozole 1 mg oral tablet (20 sources) Aromatase Inhibitor Start: 03-25-2020 End: 07-03-2024 take 1 tablet by mouth once daily Anastrozole 1 mg tablet Active 1 mg PO DAILY July 03, 2024 12:36pm Start: 11-23-2018 End: 02-22-2020 take 1 tablet by mouth once daily Anastrozole 1 MG tablet Discontinued 1 mg PO DAILY January 24, 2019 12:00am February 22, 2020 2:07pm calcium carbonate 1500 mg / cholecalciferol 200 unt oral tablet (6 sources) Vitamin D Start: 04-25-2018 End: 01-31-2024 Calcium Carbonate-Vitamin D3 600 mg-5 mcg (200 unit) tablet Active 1 {tbl} PO DAILY January 31, 2024 1:40pm Start: 04-25-2018 take 2 tablets by mo [facility] once daily Calcium Carbonate-Vitamin D3 Active 2 TABLET PO DAILY April 25, 2018 12:00am docusate sodium 100 mg oral capsule (3 sources) Start: 05-27-2022 End: 01-31-2024 take 1 capsule by mouth once daily Docusate Sodium (Stool Softener) 100 mg capsule Active 100 mg PO DAILY January 31, 2024 1:40pm x2 a week DULoxetine 30 mg delayed release oral capsule (4 sources) Serotonin and Norepinephrine Reuptake Inhibitor Start: 12-20-2023 End: 11-03-2024 take 1 capsule by mouth at bedtime Duloxetine 30 mg capsule,delayed release(DR/EC) Active 30 mg PO AT BEDTIME November 03, 2024 9:12am Natali-C 1000mg Tablet (1 source) Start: 01-31-2024 Natali-C 1000mg Tablet Active 1 {tbl} PO DAILY January 31, 2024 1:41pm Yyvrxdjgezug-Lo-W fede-Minerals (4 sources) Start: 04-25-2018 take 1 tablet by mouth once daily Multivitamin-Ca- Iron-Minerals Active 1 TABLET PO DAILY April 25, 2018 12:00am MULTIPLE VITAMIN FOR WOMEN OVER 65 Start: 04-25-2018 take 1 tablet by ivone th once daily Wnarpdljsvjp-Of-Ndxm-Minerals Active 1 T ABLET PO DAILY April 25, 2018 1:00am MULTIPLE VITAMIN FOR WOMEN OVER 65 Yqxrbumjchev-Vo-Edpw-Mineral s 1 EACH tablet (1 source) Start: 04-25-2018 take 1 tablet by mouth once daily Idntkmejxicj-Yx-Mrpw-Minerals 1 EACH tablet Active 1 {tbl} PO DAILY April 25, 2018 1:00am MULTIPLE VITAMIN FOR WOMEN OVER 65 Nirmatrelvir-Ritonavir (1 source) Start: 12-22-2021 Nirmatrelvir-Ritonavir (Paxlovid (Eua)) 300 mg (150 mg x 2)-100 mg tablet Active 0 PO .COMPLEX December 22, 2021 12:00am take TWO 150 mg tablets of nirmatrelvir with ONE 100 mg tablet of ritonavir twice daily for 5 days ondansetron 4 mg disintegrating oral tablet (10 sources) Seroto shahrzad-3 Recept or Antago nist Start: 12-22-2021 take 2 tablets by mouth every eight hours as needed for nausea Ondansetron 4 MG tablet Active 8 mg PO EVERY 8 HOURS NEEDED as needed for Nausea December 22, 2021 12:00am Start: 12-22-2021 take 8 mg by mouth e very eight hours as needed Ondansetron Active 8 MG PO EVERY 8 HOURS NEEDED December 21, 2021 11:00pm Start: 07-13-2018 End: 08-12-2018 take 1 tablet by mouth every eight hours as needed for nausea Ondansetron 4 MG tablet Discontinued 4 mg PO EVERY 8 HOURS NEEDED as needed for Nausea/Vomiting 19 04July 13, 2018 1:00am August 11, 2018 1:00am August 12, 2018 1:10am Completed/Discontinued Medications Medication Drug Class(es) Dates Sig (Normalized) Sig (Original) acetaminophen 325 mg / oxyCODONE hydrochloride 5 mg oral tablet (5 sources) Opioid Agonist Start: 06-07-2018 End: 06-10-2018 Oxycodone-Acetamino phen 1 TABLET tablet Discontinued 1 - 2 {tbl} PO EVERY 6 HOURS NEEDED as needed for Pain 02 09June 07, 2018 1:00am June 09, 2018 1:00am June 10, 2018 1:12am Start: 06-07-2018 End: 06-10-2018 take 1 tablet by mouth every six hours as needed Oxycodone-Acetaminophen Discontinued 1 - 2 TABLET PO EVERY 6 HOURS NEEDED 02 09June 07, 2018 12:00am June 10, 2018 12:12am biotin 5 mg oral capsule (2 sources) Start: 05-27-2022 End: 12-20-2023 take 1 capsule by mouth once daily Biotin 5 mg capsule Discontinued 5 mg PO DAILY May 27, 2022 1:00am December 20, 2023 2:54pm dexamethasone 4 mg oral tablet (5 sources) Corticosteroid Start: 07-13-2018 End: 07-25-2018 take 2 tablets by mouth twice daily Dexamethasone 4 MG tablet Discontinued 8 mg PO Q12H 12 July 13, 2018 1:00am July 24, 2018 1:00am July 25, 2018 1:08am TAKE 8 MG (2 TABLETS) BY MOUTH TWICE DAILY ON THE DAY BEFORE, THE DAY OF AND THE DAY AFTER CHEMOTHERAPY ONLY Start: 07-13-2018 End: 07-25-2018 take 1 tablet by mouth twice daily Dexamethasone Discontinued 8 MG PO Q12H 12 July 13, 2018 12:00am July 25, 2018 12:08am TAKE 8 MG (2 TABLETS) BY MOUTH TWICE DAILY ON THE DAY BEFORE, THE DAY OF AND THE DAY AFTER CHEMOTHERAPY ONLY Natali-C 500 mg Tablet (5 sources) Start: 04-24-2019 End: 01-31-2024 Natali-C 500 mg Tablet Discon tinued 1 {tbl} PO DAILY April 24, 2019 1:00am January 31, 2024 1:42pm Start: 04-24-2019 take 1 tablet by mouth once da pema Natali-C 500 mg Tablet Active 1 TABLET PO DAILY April 24, 2019 12:00am Start: 04-24-2019 take 1 tablet by mouth once da pema Natali-C 500 mg Tablet Active 1 TABLET PO DAILY April 24, 2019 1:00am lidocaine 25 mg/ml / prilocaine 25 mg/ml topical cream (5 sources) Antiarrhythmic, Amide Local Anesthetic Start: 07-13-2018 End: 10-11-2018 Lidocaine-Prilocaine 30 GM Cream..G. Discontinued 1 APPLICATIO TP DAILY NEEDED as needed for Not Specified 07 20July 13, 2018 1:51pm October 10, 2018 12:00am October 11, 2018 12:11am Start: 07-13-2018 End: 10-11-2018 Lidocaine-Prilocaine Discont inued 1 APPLICATIO TP DAILY NEEDED 07 20July 13, 2018 12:51pm October 10, 2018 11:11pm Problems Active Problems Problem Classification Problem Date Documented Da te Episodic/Chronic Administrative/social admission (20 sources) Patient encounter status; Translations: [Counseling, unspecified] Episodic Cancer of breast (20 sources) Malignant tumor of breast ; Translations: [Malignant neoplasm of unspecified site of right female breast] Onset: 12-07-2024 Chronic Cancer of breast (6 sources) Personal history of malignant neoplasm of breast; Translations: [History of malignant neoplasm of breast] Onset: 03-21-2018 11-26-2022 Episodic Cardiac dysrhythmias (5 sources) Tachycardia; Translations: [Tachycardia, unspecified] 11-23-2018 Episodic Disorders of lipid metabolism (1 source) Hyperlipidemia; Translations: [Hyperlipidemia, unspecified] 12-24-2023 Chronic Essential hypertension (6 sources) Hypertensive disorder; Translations: [Essential (primary) hypertension] Onset: 08-08-2024 11-23-2018 Chronic Fluid and electrolyte disorders (10 sources) Dehydration; Translations: [Dehydration] Episodic Fracture of lower limb (8 sources) Fracture of talus; Translations: [Displaced avulsion fracture (chip fracture) of right talus, initial encounter for closed fracture] Episodic Mood disorders (1 source) Mood disorder; Translations: [Unspecified mood [affective] disorder] 12-20-2023 Chronic Osteoporosis (3 sources) Osteoporosis; Translations: [Age-related osteoporosis without current pathological fracture] Onset: 07-21-2024 05-28-2022 Chronic Other bone disease and musculoskeletal deformities (6 sources) Osteopenia; Translations: [Other specified disorders of bone density and structure, unspecified site] 05-31-2023 Episodic Other bone disease and musculoskeletal deformities (6 sources) Other specified disorders of bone density and structure, unspecified site; Translations: [Disorder of bone and cartilage, unspecified] Onset: 03-29-2025 Episodic Other bone disease and musculoskeletal deformities (1 source) Bone pain; Translations: [Other specified disorders of bone, unspecified site] 12-20-2023 Episodic Other connective tissue disease (3 sources) Foot pain; Translations: [Pain in right foot] 02-24-2022 Episodic Other connective tissue disease (1 source) Pain in right foot; Translations: [Pain in limb] Episodic Other nutritional; endocrine; and metabolic disorders (1 source) Hypercalcemia; Translations: [Hypercalcemia] 07-21-2024 Chronic Other nutritional; endocrine; and metabolic disorders (1 source) Hypercalcemia; Translations: [Hypercalcemia] Onset: 07-21-2024 Chronic Other skin disorders (3 sources) Mass of skin of back; Translations: [Localized swelling, mass and lump, trunk] 04-27-2022 Episodic Other skin disorders (3 sources) Infection of sebaceous cyst; Translations: [Sebaceous cyst] 04-29-2022 Episodic Other skin disorders (1 source) Localized swelling, mass and lump, trunk; Translations: [Localized superficial swelling, mass, or lump] Episodic Other skin disorders (1 source) Sebaceous cyst; Translations: [Sebaceous cyst] Episodic Residual codes; unclassified (1 source) Insomnia; Translations: [Insomnia, unspecified] 12-20-2023 Episodic Secondary malignancies (7 sources) Regional lymph node metastasis present ; Translations: [Secondary and unspecified malignant neoplasm of lymph node, unspecified] 10-28-2020 Chronic Secondary malignancies (7 sources) Secondary and unspecified malignant neoplasm of lymph node, unspecified; Translations: [Secondary and unspecified malignant neoplasm of lymph nodes, site unspecified] Onset: 12-07-2024 Chronic Viral infection (5 sources) Disease caused by 2019-nCoV; Translations: [COVID-19] 12-22-2021 Episodic Past or Other Problems Problem Classification Problem Date Documented Date Episodic/Chronic Other bone disease and musculoskeletal deformities (1 source) Other specified disorders of bone density and structure, other site; Translations: [Other specified disorders of bone density and structure, other site] Onset: 5 Episodic Other screening for suspected conditions (not mental disorders or infectious disease) (6 sources) Electrocardiogram abnormal; Translations: [Abnormal electrocardiogram [ECG] [EKG]] Onset: 5 01-29-2021 Episodic Residual codes; unclassified (1 source) Estrogen receptor positive status [ER+]; Translations: [Estrogen receptor positive status [ER+]] Onset: 5 Episodic Unclassified (5 sources) port placement 01-19-2022 Comment on above: 2011 Results Test Name Value Interpretation Reference Range Facility Oncology Visit Reporton 11-19 Oncology Visit Report [facility] [place] [address] OFFICE VISIT Date of Service: 12/07/24 1356 MR#: [id number] Acct: [id number] Name: ARANZA ST Rep #: [id number] : 1950 From: Wendi Bhat MD Age/Sex: 74/F Location: [facility] Status: Signed HPI Subjective Date of Service 12/07/24 Chief Complaint Breast cancer History of Present Illness Patient is a 74 year-old female with: #1- Right breast cancer presented in April 2018 with a newly felt lump in the right breast. Mammogram and ultrasound April 2018 is highly suspicious for malignancy. 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 Distant metastasis not applicable Additional pathologic findings dense fibrosis and fibrocystic changes Ancillary studies - previously performed on section of tumor ([id number] / [id number]). ER positive (>95%, strong) MD - positive (>95%, strong) Her2 abril negative (0-1+) Microcalcifications present in invasive carcinoma. [...] for metastatic cancer. Cancer was ER negative, MD negative, HER-2 overexpressed. She received systemic adjuvant therapy with 4 cycles of AC, followed by weekly Taxol with Herceptin for 12 weeks then completed 1 year of adjuvant Herceptin by June 2012. He did receive adjuvant radiation therapy. [facility] care was at [facility]. Treatment summary: 1. Right breast: Partial mastectomy with sentinel lymph node biopsy June 07, 2018. Adjuvant TC July 19, 2018-September 20, 2018. Arimidex 10/2018- 2. Left breast partial mastectomy with axillary lymph node dissection 2011 followed by adjuvant AC then T with 1 year of Herceptin concluded June 2012. Adjuvant radiation therapy 2011 Bone supportive therapy: Prolia , zoledronic acid (insurance preferred, 2023) [facility] Medical (more content not included)... Normal [facility] Lipid Profileon 07-26-2024 Cholesterol [Mass/Vol] 220 mg/dL High 200 [facility] Comment on above: Result Comment: <200 mg/dL Desirable 200-240 mg/dL Borderline >240 mg/dL High Risk Performed By: #### L 500.4100 ####[facility] [address] [place], [address] Cholesterol in HDL [Mass/Vol] 83 mg/dL Normal [facility] Comment on above: Result Comment: The drugs N-Acetylcysteine and Metamizole may falsely depress this assay. Reference Range HDL <40 mg/dL Low HDL Cholesterol HDL >or= 60 mg/dL High HDL Cholesterol Performed By: #### L 500.4100 ####[facility] [address] [place], [address] Cholesterol in LDL [Mass/Vol] 124 mg/dL Normal 0-130 [facility] Comment on above: Performed By: #### L 500.4100 ####[facility] [address] [place], [address] Cholesterol in VLDL [Mass/Vol] 13 mg/dL Normal 5-40 [facility] Comment on above: Performed By: #### L 500.4100 ####[facility] [address] [place], [address] Triglyceride [Mass/Vol] 65 mg/dL Normal [facility] Comment on above: Result Comment: The drugs N-Acetylcysteine and Metamizole may falsely depress this assay. Serum Triglycerides Reference Interval Normal <150 mg/dL Borderline high 150 - 199 mg/dL High 200 - 499 mg/dL Very High > or = 500 mg/dL Performed By: #### L 500.4100 ####[facility] [address] [place], [address] PTHINon 07-26-2024 PTH 74.3 pg/mL Normal 18.4-80.1 [facility] Comment on above: Performed By: #### L 509.1000 #### [facility] [address] [place], [address] Endocrinology Visit Reporton 07-21-2024 Endocrinology Visit Report [facility] [address] [facility] [place] [address] OFFICE VISIT Date of Service: 07/21/24 MR#: [id number] Acct: [id number] Name: ARANZA ST Rep #: [id number] : 1950 Provider: Sanya Santillan Age/Sex: 74/F Location: [facility] [place] Status: Signed Intake Vital Signs 06/05/24 11:39 07/21/24 14:39 Height 5 ft 1 in 5 ft 1 in Weight: 118 lb 8 oz BMI 22.4 BP 150/84 H Blood Pressure Location Lt brachial Position Sitting Pulse 89 Pulse Source Monitor Pulse Oximetry (%) 95 Oxygen Delivery Method room air Intake Visit Reasons: Osteoporosis Chief Complaint: Breast cancer Is patient in pain?: No Allergies No Known Allergies Allergy (Verified 07/21/24 14:50) Medications ???Medication ???Instructions ???Recorded ???Confirmed ???Type qhjcmhfjcdrs-Qz-eute-mi nerals 1 tab PO DAILY SUPPLEMENT 04/25/18 07/21/24 History ondansetron 4 mg disintegrating 8 mg (2 x 4 mg) PO Q8H PRN PRN 10/1007/21/24 Rx tablet Nausea #20 tabs Natali-C 1000mg Tablet 1 tab PO DAILY 01/31/24 07/21/24 H istory calcium 600 mg (as 1 tab PO DAILY SUPPLEMENT 01/31/24 07/21/24 History carbonate)-vitamin D3 5 mcg (200 unit) tablet docusate sodium 100 mg capsule 100 mg PO DAILY 01/31/24 07/21/24 History (Stool Softener) duloxetine 30 mg capsule,delayed 30 mg PO QHS #90 caps 01/31/24 Rx release anastrozole 1 mg tablet 1 mg PO DAILY #90 TABLETS 07/03/24 07/21/24 Rx Have you fallen in the past year?: No PFSH Medical History (Updated 07/24/24 @ 08:[address] Rojas Cox MD) Hypercalcemia Hyperlipidemia Insomnia Bone pain Mood disorder History of right breast cancer Screening for breast cancer History of left breast cancer Osteoporosis Avulsion fracture of metatarsal bone of right foot Right foot pain Abnormal EKG Preoperative evaluation to rule out surgical contraindication port placement Cancer of right breast Depression Cancer of left breast Surgical History History of hysterectomy History of lumpectomy Family History Father Cancer Social History household members: spouse housing: house Smoking Status: Never smoker second hand exposure: No alcohol intake: never substance use type: does not use what type of physical activity do you participate in: none gabriel/anglican: None seatbelt use: always do you feel safe at home: Yes HPI HPI ARANZA ST, is a 74 F who presents to the office today for evaluation and management of osteoporosis. She has breast cancer and is under the care of Dr. Bhat. She took Prolia for bone loss and then insurance denied renewal. She was given Zometa for about 2 years and bone density was not improved. An appeal was made to insurance and she was put back on Prolia. She is is here today for evaluation due to non-improvement in DEXA scores. eRR 56 Calcium 10.4 LS -1.7 LF -1.2 LFN -.9 RF -1.5 RFN -2.5 Current Symptoms: denies bone pain, nausea, abdominal pain, dysphagia, increased confusion, muscle weakness or unsteady gait/balance Nutritional Status: Yes: Milk (300mg), Yes: Cottage Cheese (200mg), Yes: Yogurt (450mg), Yes: takes calcim and Yes: takes OTC vitamin D Risk Factors: denies tobacco use, denies alcohol 2 drinks per day or more, has history of age is greater than 65 and has history of weight is less than 127 pounds Pertinent treatment/medication history: biphosphonates and Prolia Osteoporosis/Bone Results: Calcium Level 10.4 mg/dL (8.5-10.1) H Albumin 3.9 g/dL (3.2-5.0) Vitamin D 25-Hydroxy 59.4 ng/mL ROS Const Constitutional: No fatigue or weight change Eyes Eyes: No change in vision ENT ENT: No dizziness/vertigo Cardio Cardiology: No chest pain at rest, chest pain with exertion, shortness of breath or palpitations Musc Musculoskeletal: No muscle weakness Neuro Neurology: No unsteady gait/balance Psych Psychiatric: No anxiety and No depression Rudi/Lymp Hematologic/Lymphatic: No easy bruising Resp Respiratory: No cough, hemoptysis or shortness of breath Gastro GI: No abdominal pain Genitourinary-Female: No blood in urine Skin Skin: No wounds Endo Endocrine: No fatigue or weight change Exam Const General: cooperative, healthy appearing, comfortable, no acute distress, well developed and not cushingoid Nutritional Appearance: well nourished and thin Orientation: alert, awake and oriented x3 HENMT Head: normal to inspection Ears: hearing grossly normal bilaterally Nose: external nose normal Mouth: oral mucosae normal Eyes General: appearance (more content not included)... Normal [facility] Absolute lymphocyte countOrd ered By: Wendi Bhat on 06-01-2024 Lymphocytes Auto (Unsp spec) [#/Vol] 1.64 10*3/uL 0.83-4.51 [facility] Absolute neutrophil countOrd ered By: [facility] on 06-01-2024 Neutrophils (Bld) [#/Vol] 3.2 10*3/uL 2.0-7.7 [facility] Albumin to globulin ratioOrd ered By: [facility] B[facility] on 06-01-2024 Albumin/Globulin [Mass ratio] 1.1 {ratio} 0.9-2.4 [facility] Automated lymphocyte count a s percentage of total leukocytesOrdered By: Wendi Bhat on 06-01-2024 Lymphocytes/100 WBC Auto (Unsp spec) 29.8 % 19-41 [facility] Basic Metabolic Profile (BMP )on 06-01-2024 BUN Normal 7-18 [facility] Comment on above: Result Comment: CMP ORDERED INTERNALLY Performed By: #### L 500.2500 #### [facility] [address] [place], [address] BUN/CRE Normal 10-20 [facility] Comment on above: Result Comment: CMP ORDERED INTERNALLY Performed By: #### L 500.2500 #### [facility] [address] [place], [address] CA,Total Normal 8.5-10.1 [facility] Comment on above: Result Comment: CMP ORDERED INTERNALLY Performed By: #### L 500.2500 #### [facility] [address] [place], [address] CL Normal 98-107 [facility] Comment on above: Result Comment: CMP ORDERED INTERNALLY Performed By: #### L 500.2500 #### [facility] [address] [place], [address] CO2 Normal 21.0-32.0 [facility] Comment on above: Result Comment: CMP ORDERED INTERNALLY Performed By: #### L 500.2500 #### [facility] [address] [place], [address] CREAT,SERUM Normal 0.55-1.02 [facility] Comment on above: Result Comment: CMP ORDERED INTERNALLY Performed By: #### L 500.2500 #### [facility] [address] [place], [address] EST GFR Normal >60 [facility] Comment on above: Result Comment: CMP ORDERED INTERNALLY Performed By: #### L 500.2500 #### [facility] [address] [place], [address] EST GFR - AA Normal >60 [facility] Comment on above: Result Comment: CMP ORDERED INTERNALLY Performed By: #### L 500.2500 #### [facility] [address] [place], [address] GAP Normal 5-15 [facility] Comment on above: Result Comment: CMP ORDERED INTERNALLY Performed By: #### L 500.2500 #### [facility] [address] [place], [address] GLU Normal 74-106 [facility] Comment on above: Result Comment: CMP ORDERED INTERNALLY Performed By: #### L 500.2500 #### [facility] [address] [place], [address] Potassium Normal 3.5-5.1 [facility] Comment on above: Result Comment: CMP ORDERED INTERNALLY Performed By: #### L 500.2500 #### [facility] [address] [place], [address] Basic Metabolic Profile (BMP) Normal 136-145 [facility] Comment on above: Result Comment: CMP ORDERED INTERNALLY Performed By: #### L 500.2500 #### [facility] [address] [place], [address] Basophil percentageOrdered B y: Wendi Bhat on 06-01-2024 Basophils/100 WBC (Bld) 1.8 % High 0-1 [facility] Bilirubin, totalOrdered By: Wendi Bhat on 06-01-2024 Bilirubin [Mass/Vol] 0.60 mg/dL 0.20-1.00 [facility] Comment on above: For patients on eltr ombopag therapy, use of Dimension [place] TBIL is not recommended. Blood urea nitrogen (BUN)/cr eatinine ratioOrdered By: Wendi Bhat on 06-01-2024 Urea nitrogen/Creatinine [Mass ratio] 20.4 mg/mg High 10-20 [facility] CBC W/Diff, Automatedon 05-21 Absolute Lymph 1.64 X10 3/uL Normal 0.83-4.51 [facility] Comment on above: Performed By: #### L 100.0100, L500.4050 #### [facility] Laboratory [address] [place], [address] Absolute Neut 3.2 X10 3/uL Normal 2.0-7.7 [facility] Comment on above: Performed By: #### L 100.0100, L500.4050 #### [facility] [address] [place], [address] Basophils/100 WBC (Bld) 1.8 % High 0-1 [facility] Comment on above: Performed By: #### L 100.0100, L500.4050 #### [facility] [address] [place], [address] Eosinophils/100 WBC (Bld) 2.2 % Normal 0-5 [facility] Comment on above: Performed By: #### L 100.0100, L500.4050 #### [facility] [address] [place], [address] Erythrocyte distribution width (RBC) [Ratio] 13.4 % Normal 11.6-14.6 [facility] Comment on above: Performed By: #### L 100.0100, L500.4050 #### [facility] [address] [place], [address] Hematocrit (Bld) [Volume fraction] 40.8 % Normal 37-47 [facility] Comment on above: Performed By: #### L 100.0100, L500.4050 #### [facility] [address] [place], [address] Hemoglobin (Bld) [Mass/Vol] 13.1 g/dL Normal 12.0-15.0 [facility] Comment on above: Performed By: #### L 100.0100, L500.4050 #### [facility] [address] [place], [address] IG% 0.000 Normal 0.0-0.9 [facility] Comment on above: Result Comment: IG% - Immature Granulocytes (promyelocytes, myelocytes and metamyelocytes) > 1% indicates that a LEFT SHIFT is Present. Performed By: #### L 100.0100, L500.4050 #### [facility] [address] [place], [address] Lymphocytes/100 WBC (Bld) 29.8 % Normal 19-41 [facility] Comment on above: Performed By: #### L 100.0100, L500.4050 #### [facility] [address] [place], [address] MCH (RBC) [Entitic mass] 29.0 pg Normal 27.0-32.0 [facility] Comment on above: Performed By: #### L 100.0100, L500.4050 #### [facility] [address] [place], [address] MCHC (RBC) [Mass/Vol] 32.1 g/dL Normal 32-36 [facility] Comment on above: Performed By: #### L 100.0100, L500.4050 #### [facility] [address] [place], [address] MCV (RBC) [Entitic vol] 90.5 fL Normal 81-99 [facility] Comment on above: Performed By: #### L 100.0100, L500.4050 #### [facility] [address] [place], [address] Monocytes/100 WBC (Bld) 8.5 % Normal 0-10 [facility] Comment on above: Performed By: #### L 100.0100, L500.4050 #### [facility] [address] [place], [address] Neutrophils/100 WBC (Bld) 57.7 % Normal 47-70 [facility] Comment on above: Performed By: #### L 100.0100, L500.4050 #### [facility] [address] [place], [address] Nucleated RBC (Bld) [#/Vol] 0 10*3/uL Normal 0-5 [facility] Comment on above: Performed By: #### L 100.0100, L500.4050 #### [facility] [address] [place], [address] Platelet mean volume (Bld) [Entitic vol] 10.1 fL Normal 6.2-12.0 [facility] Comment on above: Performed By: #### L 100.0100, L500.4050 #### [facility] [address] [place], [address] Platelets (Bld) [#/Vol] 271 10*3/uL Normal 150-450 [facility] Comment on above: Performed By: #### L 100.0100, L500.4050 #### [facility] [address] [place], [address] RBC (Bld) [#/Vol] 4.51 10*6/uL Normal 4.2-5.4 [facility] Comment on above: Performed By: #### L 100.0100, L500.4050 #### [facility] [address] [place], [address] RDW SD 44.7 fl High 35.1-43.9 [facility] Comment on above: Performed By: #### L 100.0100, L500.4050 #### [facility] [address] [place], [address] WBC (Bld) [#/Vol] 5.5 10*3/uL Normal 4.4-11.0 [facility] Comment on above: Performed By: #### L 100.0100, L500.4050 #### [facility] [address] [place], [address] Carbon dioxide measurementOr dered By: Wendi Bhat on 06-01-2024 CO2 [Moles/Vol] 31.0 mmol/L 21.0-32.0 [facility] Chloride measurementOrdered By: Wendi Bhat on 06-01-2024 Chloride [Moles/Vol] 100 mmol/L 98-107 [facility] Comprehensive Metabolic Prof ilon 06-01-2024 Albumin [Mass/Vol] 3.9 g/dL Normal 3.2-5.0 [facility] Comment on above: Performed By: #### L 100.0100, L500.4050 #### [facility] [address] [place], [address] Albumin/Globulin [Mass ratio] 1.1 {ratio} Normal 0.9-2.4 [facility] Comment on above: Performed By: #### L 100.0100, L500.4050 #### [facility] [address] [place], [address] ALK P 90 U/L Normal 45-117 [facility] Comment on above: Performed By: #### L 100.0100, L500.4050 #### [facility] [address] [place], [address] ALT [Catalytic activity/Vol] 19 U/L Normal 13-56 [facility] Comment on above: Performed By: #### L 100.0100, L500.4050 #### [facility] [address] [place], [address] AST [Catalytic activity/Vol] 18 U/L Normal 15-37 [facility] Comment on above: Performed By: #### L 100.0100, L500.4050 #### [facility] [address] [place], [address] Bilirubin [Mass/Vol] 0.60 mg/dL Normal 0.20-1.00 [facility] Comment on above: Result Comment: For patients on eltrombopag therapy, use of Dimension [place] TBIL is not recommended. Performed By: #### L 100.0100, L500.4050 #### [facility] [address] [place], [address] BUN/CRE 20.4 RATIO High 10-20 [facility] Comment on above: Performed By: #### L 100.0100, L500.4050 #### [facility] [address] [place], [address] CA,Total 10.4 mg/dL High 8.5-10.1 [facility] Comment on above: Performed By: #### L 100.0100, L500.4050 #### [facility] [address] [place], [address] Chloride [Moles/Vol] 100 mmol/L Normal 98-107 [facility] Comment on above: Performed By: #### L 100.0100, L500.4050 #### [facility] [address] [place], [address] CO2 [Moles/Vol] 31.0 mmol/L Normal 21.0-32.0 [facility] Comment on above: Performed By: #### L 100.0100, L500.4050 #### [facility] [address] [place], [address] Creatinine [Mass/Vol] 1.03 mg/dL High 0.55-1.02 [facility] Comment on above: Result Comment: The validity of the calculated GFR GFRAA in patients over 70 years has not been determined. Clinical correlation is essential. Performed By: #### L 100.0100, L500.4050 #### [facility] [address] [place], [address] ECRCL 39.26 ml/min Normal [facility] Comment on above: Performed By: #### L 100.0100, L500.4050 #### [facility] [address] [place], [address] EST GFR - AA 67 mL/min Normal >60 [facility] Comment on above: Result Comment: Afri can Yemeni GFR Calc Performed By: #### L 100.0100, L500.4050 #### [facility] [address] [place], [address] GAP 5 Normal 5-15 [facility] Comment on above: Performed By: #### L 100.0100, L500.4050 #### [facility] [address] [place], [address] GFR/1.73 sq M.predicted among non-blacks MDRD (S/P/Bld) [Vol rate/Area] 56 mL/min/{1.73_m2} Low >60 [facility] Comment on above: Result Comment: Non- GFR Calc Performed By: #### L 100.0100, L500.4050 #### [facility] [address] [place], [address] Globulin (S) [Mass/Vol] 3.7 g/dL Normal 2.2-4.2 [facility] Comment on above: Performed By: #### L 100.0100, L500.4050 #### [facility] [address] [place], [address] Glucose [Mass/Vol] 109 mg/dL High 74-106 [facility] Comment on above: Result Comment: Fast ing Glucose result from 100 to 125 mg/dL suggests IMPAIRED HOMEOSTASIS per A.D.A. criteria. Performed By: #### L 100.0100, L500.4050 #### [facility] [address] [place], [address] Potassium [Moles/Vol] 3.8 mmol/L Normal 3.5-5.1 [facility] Comment on above: Performed By: #### L 100.0100, L500.4050 #### [facility] [address] [place], [address] Sodium [Moles/Vol] 136 mmol/L Normal 136-145 [facility] Comment on above: Performed By: #### L 100.0100, L500.4050 #### [facility] [address] [place], [address] T PROT 7.6 g/dL Normal 6.4-8.2 [facility] Comment on above: Performed By: #### L 100.0100, L500.4050 #### [facility] [address] [place], [address] Urea nitrogen [Mass/Vol] 21 mg/dL High 7-18 [facility] Comment on above: Performed By: #### L 100.0100, L500.4050 #### [facility] [address] [place], [address] Eosinophil percentageOrdered By: Wendi Bhat on 06-01-2024 Eosinophils/100 WBC (Bld) 2.2 % 0-5 [facility] Erythrocyte distribution wid th ratioOrdered By: Wendi Bhat on 06-01-2024 Erythrocyte distribution width (RBC) [Ratio] 13.4 % 11.6-14.6 [facility] Erythrocyte distribution wid th standard deviationOrdered By: Wendi Bhat on 06-01-2024 Erythrocyte distribution width (RBC) [Ratio] 44.7 fl High 35.1-43.9 [facility] Glomerular filtration rate ( GFR) estimationOrdered By: Wendi Bhat on 06-01-2024 GFR/1.73 sq M.predicted among non-blacks MDRD (S/P/Bld) [Vol rate/Area] 56 mL/min/{1.73_m2} Low >60 [facility] Comment on above: Non- GFR Calc Glucose measurementOrdered B y: Wendi Bhat on 06-01-2024 Glucose [Mass/Vol] 109 mg/dL High 74-106 [facility] Comment on above: Fasting Glucose resu lt from 100 to 125 mg/dL suggests IMPAIRED HOMEOSTASIS per A.D.A. criteria. Hematocrit Auto (Bld) [Volum e fraction]Ordered By: Wendi Bhat on 06-01-2024 Hematocrit (Bld) [Volume fraction] 40.8 % 37-47 [facility] Hemoglobin measurementOrdere d By: Wendi Bhat on 06-01-2024 Hemoglobin (Bld) [Mass/Vol] 13.1 g/dL 12.0-15.0 [facility] Immature granulocytes/100 WB C Auto (Bld)Ordered By: Wendi Bhat on 06-01-2024 Immature granulocytes/100 WBC (Bld) 0.000 % 0.0-0.9 [facility] Comment on above: IG% - Immature Granu locytes (promyelocytes, myelocytes and metamyelocytes) > 1% indicates that a LEFT SHIFT is Present. Laboratory - Chemistry and C hemistry - challengeOrdered By: Wendi Bhat on 06-01-2024 AST [Catalytic activity/Vol] 18 U/L 15-37 [facility] MCV (mean corpuscular volume ) determinationOrdered By: Wendi Baht on 06-01-2024 MCV (RBC) [Entitic vol] 90.5 fL 81-99 [facility] Mean corpuscular hemoglobin (MCH) determinationOrdered By: Wendi Bhat on 06-01-2024 MCH (RBC) [Entitic mass] 29.0 pg 27.0-32.0 [facility] Mean corpuscular hemoglobin concentration (MCHC) determinationOrdered By: Wendi Bhat on 06-01-2024 MCHC (RBC) [Mass/Vol] 32.1 g/dL 32-36 [facility] Mean platelet volume determi nationOrdered By: Wendi Bhat on 06-01-2024 Platelet mean volume (Bld) [Entitic vol] 10.1 fL 6.2-12.0 [facility] Monocyte percentageOrdered B y: Wendi Bhat on 06-01-2024 Monocytes/100 WBC (Bld) 8.5 % 0-10 [facility] Neutrophil percentageOrdered By: Wendi Bhat on 06-01-2024 Neutrophils/100 WBC (Bld) 57.7 % 47-70 [facility] Nucleated red blood cell per centageOrdered By: Wendi Bhat on 06-01-2024 Nucleated RBC/100 WBC (Bld) [Ratio] 0 % 0-5 [facility] Oncology Visit Reporton 05-21 Oncology Visit Report [facility] [place] [facility] [address] [place] [address] OFFICE VISIT Date of Service: 06/01/24 1342 MR#: [id number] Acct: [id number] Name: ARANZA ST Rep #: [id number] : 1950 From: Wendi Bhat MD Age/Sex: 74/F Location: [facility] Status: Signed HPI Subjective Date of Service 06/01/24 Chief Complaint Breast cancer History of Present Illness Patient is a 74 year-old female with: #1- Right breast cancer presented in April 2018 with a newly felt lump in the right breast. Mammogram and ultrasound April 2018 is highly suspicious for malignancy. 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 Histologic Grade (Pitman grade): Glandular/tubular differentiation - score 3 Nuclear [...] evaluation of sentinel lymph nodes - H E, multiple levels and IHC. Distant metastasis not applicable Additional pathologic findings dense fibrosis and fibrocystic changes Ancillary studies - previously performed on section of tumor ([id number] / [id number]). ER positive (>95%, strong) MD - positive (>95%, strong) Her2 abril negative (0-1+) Microcalcifications present in invasive carcinoma. [...] for metastatic cancer. Cancer was ER negative, MD negative, HER-2 overexpressed. She received systemic adjuvant therapy with 4 cycles of AC, followed by weekly Taxol with Herceptin for 12 weeks then completed 1 year of adjuvant Herceptin by June 2012. He did receive adjuvant radiation therapy. [facility] care [facility] at [facility]. Treatment summary: 1. Right breast: Partial mastectomy with sentinel lymph node biopsy June 07, 2018. Adjuvant TC July 19, 2018-September 20, 2018. Arimidex 10/2018- 2. Left breast partial mastectomy with axillary lymph node dissection 2011 followed by adjuvant AC then T with 1 year of Herceptin concluded June 2012. Adjuvant radiation therapy 2011 Bone supportive therapy: Prolia [id number], zoledronic acid (insurance preferred, 2023) [facility] (more content not included)... Normal [facility] Platelet countOrdered By: Carleen Bhat on 06-01-2024 Platelets (Bld) [#/Vol] 271 10*3/uL 150-450 [facility] Potassium measurementOrdered By: Wendi Bhat on 06-01-2024 Potassium [Moles/Vol] 3.8 mmol/L 3.5-5.1 [facility] RBC Auto (Bld) [#/Vol]Ordere d By: Wendi Bhat on 06-01-2024 RBC (Bld) [#/Vol] 4.51 10*6/uL 4.2-5.4 [facility] Serum anion gap measurementO rdered By: Wendi Bhat on 06-01-2024 Anion gap [Moles/Vol] 5 mmol/L 5-15 [facility] Serum globulin measurementOr dered By: Wendi Bhat on 06-01-2024 Globulin (S) [Mass/Vol] 3.7 g/dL 2.2-4.2 [facility] Serum or plasma alanine pisano otransferase (ALT) measurementOrdered By: Wendi Bhat on 06-01-2024 ALT [Catalytic activity/Vol] 19 U/L 13-56 [facility] Serum or plasma albumin william urement (mass/volume)Ordered By: Wendi Bhat on 06-01-2024 Albumin [Mass/Vol] 3.9 g/dL 3.2-5.0 [facility] Serum or plasma alkaline ana sphatase measurementOrdered By: Wendi Bhat on 06-01-2024 ALP [Catalytic activity/Vol] 90 U/L 45-117 [facility] Serum or plasma calcium william urement (mass/volume)Ordered By: Wendi Bhat on 06-01-2024 Calcium [Mass/Vol] 10.4 mg/dL High 8.5-10.1 [facility] Serum or plasma creatinine m easurement (mass/volume)Ordered By: Wendi Bhat on 06-01-2024 Creatinine [Mass/Vol] 1.03 mg/dL High 0.55-1.02 [facility] Comment on above: The validity of the calculated GFR & GFRAA in patients over 70 years has not been determined. Clinical correlation is essential. Serum or plasma urea nitroge n measurement (mass/volume)Ordered By: Wendi Bhat on 06-01-2024 Urea nitrogen [Mass/Vol] 21 mg/dL High 7-18 [facility] Sodium levelOrdered By: Jeffry Bhat on 06-01-2024 Sodium [Moles/Vol] 136 mmol/L 136-145 [facility] Total proteinOrdered By: Bo Bhat on 06-01-2024 Protein [Mass/Vol] 7.6 g/dL 6.4-8.2 [facility] White blood cell (WBC) count Ordered By: Wendi Bhat on 06-01-2024 WBC (Bld) [#/Vol] 5.5 10*3/uL 4.4-11.0 [facility] Dexa Bone Density Studyon Dexa Bone Density Study [facility] Imaging Services [address] [place] [id number] Dexa Bone Density Study MR#: [id number] Acct: [id number] Name: ARANZA ST Rep #: [id number] : 1950 F 74 From: Ismael rocha MD PCP: Dr. Dalton Bonilla MD Status: REG CLI Study: Dexa Bone Density Study Date of Exam: 05/25/24 Exam# [id number] Ordering Dr: [place] [id number] STUDY: DUAL ENERGY X-RAY ABSORPTIOMETRY / DXA REASON FOR EXAM: Female, 74 years old. BREAST CANCER TECHNIQUE: Bone Mineral Density (BMD) measurements of lumbar spine and bilateral hips were obtained. COMPARISON: Comparison is made with prior study May 12, 2022. FINDINGS: Lumbar Spine (L1-L4): g/cm2 (0.861) / T-score (-1.7) / Z-score (0.7) Findings are suggestive of osteopenia with a moderate fracture risk. Left Femur Total: g/cm2 (0.794) / T-score (-1.2) / Z-score (0.5) Left Femoral Neck: g/cm2 (0.754) / T-score (-0.9) / Z-score (1.2) Right Femur Total: g/cm2 (0.765) / T-score (-1.5) / Z-score (0.3) Right Femoral Neck: g/cm2 (0.575) / T-score (-2.5) / Z-score (-0.4) The T-Scores on the most recent prior examination were: Lumbar Spine (L1-L4): There has been worsening of bone density since the previous examination. Left Femur Total: which represents an improvement of 7.5%. Right Femur Total: which represents an improvement of 3.9%. BD/Dexa Bone Density Study IMPRESSION: The patient is considered osteoporotic as outlined below according to [place] Organization (WHO) criteria with a high fracture risk. There has been worsening of bone density since the previous examination. Reference Information: The T-score is the number of standard deviations above or below the standard which is normal for young adults at their peak bone mineral density. The World Health Organization (WHO) interprets the T-scores as follows: Above -1 Normal bone density Between -1 and -2.5 Osteopenia Equal to / or below -2.5 Osteoporosis As a practical clinical guideline, osteopenia may be graded as follows: Mild -1 through -1.5 Moderate -1.6 through -2.0 Severe -2.1 through -2.4 The Z-score is the number of standard deviations above or below age-matched controls. A Z-score of less than -1.5 would be considered abnormal. References: 1. NIH Osteoporosis and Related Bone Diseases www osteo.org 2. International Society for Clinical Densitometry www iscd.org 3. National Osteoporosis Foundation www nof.org Electronically Signed: Ismael Winters MD at 12:43 EST , CC: Dr. Dalton Bonilla MD; Dr. Wendi Bhat MD Wood Cabinetmaker: Signed Normal [facility] SCRN MAMM (CAD)W/CASSIA BILATo n 05-25-2024 SCRN MAMM (CAD)W/CASSIA BILAT [facility] Imaging Services [address] [place] [address] SCRN MAMM (CAD)W/CASSIA BILAT MR#: [id number] Acct: [id number] Name: ARANZA ST Rep #: [id number] : 1950 F 74 From: Ismael rocha MD PCP: Dr. Dalton Bonilla MD Status: REG [facility] Study: SCRN MAMM (CAD)W/CASSIA BILAT Date of Exam: 11/11 Exam# [id number] Ordering [place]: [place] [id number] MAMMOGRAPHY - BILATERAL SCREENING REASON FOR EXAM: Female, 74 years old. Routine annual screening examination. PERTINENT HISTORY: Personal history of breast cancer. Prior left lumpectomy with radiation and chemotherapy. Prior right lumpectomy with chemotherapy and radiation as well. TECHNIQUE: Digital bilateral breast cassia (3D mammographic acquisition) in the CC and MLO projections. 2-D mediolateral oblique (MLO) and craniocaudad (CC) views of both breasts were obtained. CAD: Full Field Digital Mammography with Computer Added Detection was performed. COMPARISON: Comparison is made with prior study dated May 17, 2023 and May 12, 2022. FINDINGS: Breast Composition: The breasts are heterogeneously dense, which may obscure small masses. There are no dominant masses or suspicious calcifications. The patient is status post lumpectomy in the deep inferior medial aspect of the left breast with dense dystrophic calcification adjacent to the chest wall. Overlying breast deformity. The patient is also status post lumpectomy in the deep inferior central portion of the right breast. Surgical clips are seen. A port is seen in the right axilla. No other significant abnormalities are identified. There has been no significant change since the prior study. BI/SCRN MAMM (CAD)W/CASSIA BILAT IMPRESSION: Stable bilateral screening mammogram. Yearly follow-up mammogram recommended. (A) ASSESSMENT CATEGORY: BIRADS Category 2: Benign. A letter regarding these results will be sent to the patient by the facility within 30 days. Approximately 10% of breast cancers are not detected by mammography. A normal mammogram should not delay biopsy of a clinically suspicious abnormality. [id number] Electronically Signed: Ismael Winters MD at 13:50 EST , CC: Dr. Dalton Bonilla MD; Dr. Wendi Bhat MD Wood Cabinetmaker: Signed Normal [facility] Basic Metabolic Profile (BMP )on 05-15-2024 BUN Normal -18 [facility] Comment on above: Result Comment: PT N OT ON SCHEDULE PER [facility] NURSE Performed By: #### L 500.2500 #### [facility] Laboratory [address] [place], [address] BUN/CRE Normal 10-20 [facility] Comment on above: Result Comment: PT N OT ON SCHEDULE PER [facility] NURSE Performed By: #### L 500.2500 #### [facility] [address] [place], [address] CA,Total Normal 8.5-10.1 [facility] Comment on above: Result Comment: PT N OT ON SCHEDULE PER [facility] NURSE Performed By: #### L 500.2500 #### [facility] [address] [place], [address] CL Normal 98-107 [facility] Comment on above: Result Comment: PT N OT ON SCHEDULE PER [facility] NURSE Performed By: #### L 500.2500 #### [facility] [address] [place], [address] CO2 Normal 21.0-32.0 [facility] Comment on above: Result Comment: PT N OT ON SCHEDULE PER [facility] NURSE Performed By: #### L 500.2500 #### [facility] [address] [place], [address] CREAT,SERUM Normal 0.55-1.02 [facility] Comment on above: Result Comment: PT N OT ON SCHEDULE PER [facility] NURSE Performed By: #### L 500.2500 #### [facility] [address] [place], [address] EST GFR Normal >60 [facility] Comment on above: Result Comment: PT N OT ON SCHEDULE PER [facility] NURSE Performed By: #### L 500.2500 #### [facility] [address] [place], [address] EST GFR - AA Normal >60 [facility] Comment on above: Result Comment: PT N OT ON SCHEDULE PER [facility] NURSE Performed By: #### L 500.2500 #### [facility] [address] [place], [address] GAP Normal 5-15 [facility] Comment on above: Result Comment: PT N OT ON SCHEDULE PER [facility] NURSE Performed By: #### L 500.2500 #### [facility] [address] [place], [address] GLU Normal 74-106 [facility] Comment on above: Result Comment: PT N OT ON SCHEDULE PER [facility] NURSE Performed By: #### L 500.2500 #### [facility] [address] [place], [address] Potassium Normal 3.5-5.1 [facility] Comment on above: Result Comment: PT N OT ON SCHEDULE PER [facility] NURSE Performed By: #### L 500.2500 #### [facility] [address] [place], [address] Basic Metabolic Profile (BMP) Normal 136-145 [facility] Comment on above: Result Comment: PT N OT ON SCHEDULE PER [facility] NURSE Performed By: #### L 500.2500 #### [facility] [address] [place], [address] Serum or plasma calcium william urement (mass/volume)Ordered By: Crystal Quinonez on 11-26-2022 Calcium [Mass/Vol] 9.7 mg/dL 8.5-10.1 [facility] Absolute lymphocyte countOrd ered By: Wendi Bhat on 05-27-2022 Lymphocytes Auto (Unsp spec) [#/Vol] 1.70 10*3/uL 0.83-4.51 [facility] Basophil percentageOrdered B y: Wendi Bhat on 05-27-2022 Basophils/100 WBC (Bld) 1.8 % 0-1 [facility] Bilirubin [Mass/Vol] 0.50 mg/dL 0.20-1.00 [facility] Comment on above: For patients on eltr ombopag therapy, use of Dimension [place] TBIL is not recommended. Chloride [Moles/Vol] 106 mmol/L 98-107 [facility] Eosinophils/100 WBC (Bld) 2.9 % 0-5 [facility] Glucose [Mass/Vol] 100 mg/dL 74-106 [facility] Comment on above: Fasting Glucose resu lt from 100 to 125 mg/dL suggests IMPAIRED HOMEOSTASIS per A.D.A. criteria. Neutrophils (Bld) [#/Vol] 3.1 10*3/uL 2.0-7.7 [facility] Neutrophils/100 WBC (Bld) 57.0 % 47-70 [facility] Potassium [Moles/Vol] 3.7 mmol/L 3.5-5.1 [facility] Protein [Mass/Vol] 7.1 g/dL 6.4-8.2 [facility] Sodium [Moles/Vol] 140 mmol/L 136-145 [facility] WBC (Bld) [#/Vol] 5.5 10*3/uL 4.4-11.0 [facility] Blood erythrocytes count (nu mber/volume)Ordered By: Wendi Bhat on 05-27-2022 RBC (Bld) [#/Vol] 4.32 10*6/uL 4.2-5.4 [facility] Blood hemoglobin measurement (mass/volume)Ordered By: Wendi Bhat on 05-27-2022 Hemoglobin (Bld) [Mass/Vol] 12.7 g/dL 12.0-15.0 [facility] Blood lymphocytes/100 leukoc ytesOrdered By: Wendi Bhat on 05-27-2022 Lymphocytes/100 WBC (Bld) 31.0 % 19-41 [facility] Blood monocytes/100 leukocyt esOrdered By: Wendi Bhat on 05-27-2022 Monocytes/100 WBC (Bld) 7.1 % 0-10 [facility] Blood platelet mean volumeOr dered By: Wendi Bhat on 05-27-2022 Platelet mean volume (Bld) [Entitic vol] 9.6 fL 6.2-12.0 [facility] Determination of erythrocyte mean corpuscular volume (MCV)Ordered By: Wendi Bhat on 05-27-2022 MCV (RBC) [Entitic vol] 92.1 fL 81-99 [facility] Hematocrit Auto (Bld) [Volum e fraction]Ordered By: Wendi Bhat on 05-27-2022 Hematocrit (Bld) [Volume fraction] 39.8 % 37-47 [facility] Laboratory - Chemistry and C hemistry - challengeOrdered By: Wendi Bhat on 05-27-2022 ALP [Catalytic activity/Vol] 58 U/L 45-117 [facility] ALT [Catalytic activity/Vol] 20 U/L 13-56 [facility] CO2 [Moles/Vol] 28.0 mmol/L 21.0-32.0 [facility] Globulin (S) [Mass/Vol] 3.4 g/dL 2.2-4.2 [facility] Urea nitrogen/Creatinine [Mass ratio] 24.6 mg/mg 10-20 [facility] Laboratory - Hematology and Cell countsOrdered By: [facility] on 05-27-2022 Erythrocyte distribution width (RBC) [Entitic vol] 44.7 fL 35.1-43.9 [facility] Erythrocyte distribution width (RBC) [Ratio] 13.2 % 11.6-14.6 [facility] Immature granulocytes/100 WBC (Bld) 0.200 % 0.0-0.9 [facility] Comment on above: IG% - Immature Granu locytes (promyelocytes, myelocytes and metamyelocytes) > 1% indicates that a LEFT SHIFT is Present. MCH (RBC) [Entitic mass] 29.4 pg 27.0-32.0 [facility] Nucleated RBC/100 WBC (Bld) [Ratio] 0 % 0-5 [facility] MCHC Auto (RBC) [Mass/Vol]Or dered By: Wendi Bhat on 05-27-2022 MCHC (RBC) [Mass/Vol] 31.9 g/dL 32-36 [facility] No Panel InformationOrdered By: Wendi Bhat on 05-27-2022 Estimated Creatinine Clearance Calc 43.12 ml/min [facility] Estimated GFR (MDRD) Amer 80 mL/min >60 [facility] Comment on above: GFR Calc Estimated GFR (MDRD) Non-Af Amer 66 mL/min >60 [facility] Comment on above: Non- GFR Calc Platelets bldOrdered By: Bo brewster Home on 05-27-2022 Platelets (Bld) [#/Vol] 244 10*3/uL 150-450 [facility] Serum or plasma albumin william urement (mass/volume)Ordered By: Wendi Home on 05-27-2022 Albumin [Mass/Vol] 3.7 g/dL 3.2-5.0 [facility] Serum or plasma albumin/glob ulin mass ratioOrdered By: [facility] on 05-27-2022 Albumin/Globulin [Mass ratio] 1.1 {ratio} 0.9-2.4 [facility] Serum or plasma creatinine m easurement (mass/volume)Ordered By: [facility] on 05-27-2022 Creatinine [Mass/Vol] 0.89 mg/dL 0.55-1.02 [facility] Comment on above: The validity of the calculated GFR & GFRAA in patients over 70 years has not been determined. Clinical correlation is essential. Serum or plasma urea nitroge n measurement (mass/volume)Ordered By: [facility] on 05-27-2022 Urea nitrogen [Mass/Vol] 22 mg/dL 7-18 [facility] Thin prep Papanicolaou smear with manual screeningOrdered By: [facility] on 05-27-2022 Thin prep Papanicolaou smear with manual screening 14 U/L 15-37 [facility] Thin prep Papanicolaou smear with manual screening 6 5-15 [facility] Absolute lymphocyte counton 12-22-2021 Lymphocytes Auto (Unsp spec) [#/Vol] 0.67 10*3/uL 0.83-4.51 [facility] Work Phone: Basophil percentageon 2021 Basophil percentage 0-5 SEEN /hpf 0-5 [facility] Work Phone: Basophils/100 WBC (Bld) 1.0 % 0-1 [facility] Work Phone: Chloride [Moles/Vol] 105 mmol/L 98-107 [facility] Work Phone: Eosinophils/100 WBC (Bld) 0.1 % 0-5 [facility] Work Phone: [phone] Glucose [Mass/Vol] 125 mg/dL 74-106 [facility] Work Phone: Comment on above: Fasting Glucose resu lt from 100 to 125 mg/dL suggests IMPAIRED HOMEOSTASIS per A.D.A. criteria. Neutrophils (Bld) [#/Vol] 6.2 10*3/uL 2.0-7.7 [facility] Work Phone: Neutrophils/100 WBC (Bld) 80.6 % 47-70 [facility] Work Phone: Potassium [Moles/Vol] 4.0 mmol/L 3.5-5.1 [facility] Work Phone: Comment on above: Moderate Hemolysis, Result may be falsely increased. Sodium [Moles/Vol] 139 mmol/L 136-145 [facility] Work Phone: WBC (Bld) [#/Vol] 7.7 10*3/uL 4.4-11.0 [facility] Work Phone: Bilirubin Test strip Ql (U)o n 12-22-2021 Bilirubin Ql (U) Negative Negative [facility] Work Phone: Blood erythrocytes count (nu mber/volume)on 12-22-2021 RBC (Bld) [#/Vol] 4.68 10*6/uL 4.2-5.4 [facility] Work Phone: Blood hemoglobin measurement (mass/volume)on 12-22-2021 Hemoglobin (Bld) [Mass/Vol] 13.9 g/dL 12.0-15.0 [facility] Work Phone: Blood lymphocytes/100 leukoc yteson 12-22-2021 Lymphocytes/100 WBC (Bld) 8.7 % 19-41 [facility] Work Phone: Blood monocytes/100 leukocyt eson 12-22-2021 Monocytes/100 WBC (Bld) 9.2 % 0-10 [facility] Work Phone: [phone] Blood platelet mean volumeon 12-22-2021 Platelet mean volume (Bld) [Entitic vol] 10.1 fL 6.2-12.0 [facility] Work Phone: [phone] Determination of erythrocyte mean corpuscular volume (MCV)on 12-22-2021 MCV (RBC) [Entitic vol] 91.2 fL 81-99 [facility] Work Phone: [phone] Hematocrit Auto (Bld) [Volum e fraction]on 12-22-2021 Hematocrit (Bld) [Volume fraction] 42.7 % 37-47 [facility] Work Phone: [phone] Ketones Test strip Ql (U)on 12-22-2021 Ketones Ql (U) 50 mg/dl Negative [facility] Work Phone: [phone] Laboratory - Chemistry and C hemistry - challengeon 12-22-2021 CO2 [Moles/Vol] 25.0 mmol/L 21.0-32.0 [facility] Work Phone: [phone] Urea nitrogen/Creatinine [Mass ratio] 18.8 mg/mg 10-20 [facility] Work Phone: [phone] Laboratory - Hematology and Cell countson 12-22-2021 Erythrocyte distribution width (RBC) [Entitic vol] 45.1 fL 35.1-43.9 [facility] Work Phone: [phone] Erythrocyte distribution width (RBC) [Ratio] 13.3 % 11.6-14.6 [facility] Work Phone: [phone] Immature granulocytes/100 WBC (Bld) 0.400 % 0.0-0.9 [facility] Work Phone: [phone] Comment on above: IG% - Immature Granu locytes (promyelocytes, myelocytes and metamyelocytes) > 1% indicates that a LEFT SHIFT is Present. MCH (RBC) [Entitic mass] 29.7 pg 27.0-32.0 [facility] Work Phone: Nucleated RBC/100 WBC (Bld) [Ratio] 0 % 0-5 [facility] Work Phone: MCHC Auto (RBC) [Mass/Vol]on 12-22-2021 MCHC (RBC) [Mass/Vol] 32.6 g/dL 32-36 [facility] Work Phone: Mucus LM Ql (Urine sed)on Mucus Ql (Urine sed) 0 SEEN /hpf [facility] Work Phone: [phone] Nitrite Test strip Ql (U)on 12-22-2021 Nitrite Ql (U) Negative Negative [facility] Work Phone: No Panel Informationon 12-22 Estimated Creatinine Clearance Calc 42.51 ml/min [facility] Work Phone: Estimated GFR (MDRD) Amer 74 mL/min >60 [facility] Work Phone: Comment on above: GFR Calc Estimated GFR (MDRD) Non-Af Amer 61 mL/min >60 [facility] Work Phone: Comment on above: Non- GFR Calc Platelets bldon 12-22-2021 Platelets (Bld) [#/Vol] 221 10*3/uL 150-450 [facility] Work Phone: Protein Test strip Ql (U)on 12-22-2021 Protein Ql (U) 30 mg/dl Negative [facility] Work Phone: [phone] Serum or plasma calcium william urement (mass/volume)on 12-22-2021 Calcium [Mass/Vol] 9.2 mg/dL 8.5-10.1 [facility] Work Phone: [phone] Serum or plasma creatinine m easurement (mass/volume)on 12-22-2021 Creatinine [Mass/Vol] 0.96 mg/dL 0.55-1.02 [facility] Work Phone: Comment on above: The validity of the calculated GFR & GFRAA in patients over 70 years has not been determined. Clinical correlation is essential. Serum or plasma urea nitroge n measurement (mass/volume)on 12-22-2021 Urea nitrogen [Mass/Vol] 18 mg/dL 7-18 [facility] Work Phone: Squamous epithelial cells de tection in urine sediment by light microscopyon 12-22-2021 Epithelial cells.squamous LM Ql (Urine sed) 0 SEEN /hpf 5-10 [facility] Work Phone: Thin prep Papanicolaou smear with manual screeningon 12-22-2021 Thin prep Papanicolaou smear with manual screening 9 5-15 [facility] Work Phone: Urine blood detectionon 07-0 RBC Ql (U) Negative Negative [facility] Work Phone: RBC Ql (U) 0 SEEN /hpf 0-5 [facility] Work Phone: Urine clarityon 12-22-2021 Clarity (U) Clear Clear [facility] Work Phone: Urine color determinationon 12-22-2021 Color (U) Yellow Yellow [facility] Work Phone: Urine glucose detectionon Glucose Ql (U) Normal mg/dl Normal [facility] Work Phone: Urine leukocyte esterase det ection by dipstickon 12-22-2021 Leukocyte esterase Test strip Ql (U) 25 /ul Negative [facility] Work Phone: Urine pHon 12-22-2021 pH (U) 6.0 [pH] 5.0 - 8.0 [facility] Work Phone: Urine sediment bacteria coun t by microscopy (number/high power field)on 12-22-2021 Bacteria LM.HPF (Urine sed) [#/Area] 1 /[HPF] None Seen [facility] Work Phone: Urine specific gravity measu rementon 12-22-2021 Specific gravity (U) [Rel density] 1.020 1.002-1.030 [facility] Work Phone: Urobilinogen Auto test strip Ql (U)on 12-22-2021 Urobilinogen Ql (U) Normal mg/dl Normal [facility] Work Phone: Napoleon 08-13-2021 CNPN Telephone (OPHTSA) [address] ([id number]) 1950 F Date Time Provider Department 08/13/21 ALBA PAZ OPHTSA During your visit today, we recorded the following information about you: Jarad Foss 08/13/2021 10:02 AM Signed Patient calling to see when she can stop Systane drops. She is worried about prolonged use. Please call patient to advise. OK to leave voice mail. Allergies As of Date: 08/13/2021 (No Known Allergies) Date Reviewed: 03/14/2021 Reviewed by: Alba Paz MD - Fully Assessed Reason for Visit: Patient Question [7072] Prescriptions as of 08/18/2021 - calcium carbonate 600 mg-cholecalciferol 200 units 600 mg(1,500mg) -200 unit tab Take by mouth once daily. - anastrozole (ARIMIDEX) 1 mg tablet Take 1 mg by mouth once daily. - denosumab (PROLIA) 60 mg/mL Inject subcutaneously. Problem List As Of Date 08/13/2021 Noted Resolved Combined form of age-related cataract, left eye*01/15/2021 03/11/2021 Combined form of age-related cataract, right ey*01/15/2021 Regular astigmatism of left eye [H52.222] 01/15/2021 Regular astigmatism of right eye [H52.221] 01/15/2021 History of breast cancer [Z85.3] 01/15/2021 Essential hypertension [I10] 01/28/2021 Status post cataract extraction and insertion o*03/11/2021 Encounter Status:Closed by JARAD FOSS on 08/18/21 [facility] Order Reconciliationon 03-13 Order Reconciliation Page 1 Discharge Reconciliation Document Reconciliation Type: Discharge requested on behalf of Alba Paz (Physician) done by Alba Paz) Discharge - Reconciliation: 13-Mar-2021 07:15 by: Alba Paz) Home Medications EnteredHOME MEDICATIONS AT DISCHARGE DateReconciliation Comment/ Additional Information Arimidex 1 mg oral tablet 1 tab(s) orally once a day 25-Feb-2021 12:35 Arimidex 1 mg oral tablet 1 tab(s) orally once a day 25-Feb-2021 12:35 Arimidex 1 mg oral tablet is continued as Arimidex 1 mg oral tablet Calcium 600+D 600 mg-5 mcg (200 intl units) oral tablet 1 tab(s) orally once a day 25-Feb-2021 12:35 Calcium 600+D 600 mg-5 mcg (200 intl units) oral tablet 1 tab(s) orally once a day 25-Feb-2021 12:35 Calcium 600+D 600 mg-5 mcg (200 intl units) oral tablet is continued as Calcium 600+D 600 mg-5 mcg (200 intl units) oral tablet Current OrdersDateHOME MEDICATIONS AT DISCHARGE DateReconciliation Comment/ Additional Information Acetaminophen Tablet (TYLENOL)DOSE = 975 mg Oral Once 06-Mar-2021 08:14 Acetaminophen is not required Artificial Tears (Preservative Free) SolutionDOSE = 1 drop(s) Right Eye Every 10 Minutes, PRN Dry EyesStop After 4 Doses 06-Mar-2021 08:14 Artificial Tears (Preservative Free) is not required HYDROmorphone Injectable (DILAUDID)DOSE = 0.4 mg IntraVenous Push Every 5 Minutes, PRN Pain - Severe (7-10) (PACU)Clinician Notes: [place]-operative order ONLYMax total of 4 mg regardless of dose. 12-Mar-2021 09:06 HYDROmorphone Injectable is not required Ketorolac 0.5% Ophthalmic. Solution (ACULAR)DOSE = 1 drop(s) Right Eye Every 10 MinutesStop After 4 Doses 06-Mar-2021 08:14 Ketorolac 0.5% Ophthalmic. is not required Lactated Ringers Infusion IV Bag Volume = 1,000 mL Run at: 100 mL/hr IntraVenous Clinician Notes: [place]-operative order ONLY 12-Mar-2021 09:06 Lactated Ringers Infusion is not required Lidocaine 1% - Phenylephrine 1.5% Intravitreal SolutionDOSE = 2 mL Intravitreal OnceClinician Notes: To be administered by surgeon 06-Mar-2021 08:14 Lidocaine 1% - Phenylephrine 1.5% Intravitreal is not required Moxifloxacin 0.5% Ophthalmic. Solution (VIGAMOX)DOSE = 1 mL Right Eye OnceClinician Notes: To be administered by surgeon 06-Mar-2021 08:14 Moxifloxacin 0.5% Ophthalmic. is not required Ondansetron Injectable (ZOFRAN)DOSE = 4 mg IntraVenous Push Once, PRN PONV, first lineClinician Notes: [place]-operative order ONLY 12-Mar-2021 09:06 Ondansetron Injectable is not required oxyCODONE Immediate Release Tablet (OXYIR, ROXICODONE)DOSE = 5 mg Oral Once, PRN Pain - Mild (1-3) (PACU) when able to take OralClinician Notes: [place]-operative order ONLY 12-Mar-2021 09:06 oxyCODONE Immediate Release is not required Phenylephrine 10% - Tropicamide 1% Ophthalmic Solution (MYDRIATIC COCKTAIL)DOSE = 1 drop(s) Right Eye Every 10 MinutesStop After 4 Doses 06-Mar-2021 08:14 Phenylephrine 10% - Tropicamide 1% Ophthalmic is not required Povidone Iodine 5% Ophthalmic. Solution (BETADINE)DOSE = 2 drop(s) Right Eye OnceClinician Notes: Prep around operative eye and drop into eye 06-Mar-2021 08:14 Povidone Iodine 5% Ophthalmic. is not required Tetracaine 0.5% Ophthalmic. SolutionDOSE = 1 drop(s) Right Eye Once 06-Mar-2021 08:14 Tetracaine 0.5% Ophthalmic. is not required Home Medications Added During Discharge Reconciliation Additional Patient Instructions Follow printed discharge instructions Discharge Discharge Diagnosis< H25.811 Combined forms of age-related cataract of right eye Discharge Provider, Alba Paz Discharge Disposition : .Home Condition at Discharge: Satisfactory Discharge Communication Instructions for Nursing Only: Remove IV prior to discharge from hospital. Do not remove any midline, if present, without an order from the provider. Discharge Instructions - PHR After your discharge from the hospital, two Summary of Care Documents will be available online in your Personal Health Record (PHR). 1.Consolidated-Clinical Document Architecture (C-CDA) Patient Discharge Summary This document is a summary of your hospital stay to be kept for your reference.2.C-CDA Visit Summary This document is a summary of your hospital stay to be shared with your follow-up providers (doctor, entry specialists, physical therapist, etc.). Post Procedure Discharge Criteria Criteria: Easily arousable / responding appropriately; Significant complications are absent; SpO2 = or > 92%, or if SpO2 < 92%, maintains within 2% of baseline; Vital signs +/- 20% of preprocedure status; Ambulates without dizziness / age appropriate activity and ambulatory status returns to pre-procedure baseline. All Active Home Medications at time of Discharge Reconciliation: 13-Mar-2021 07:15 Additional Patient Instructions Follow printed discharge instructions Arimidex 1 mg oral tablet 1 tab(s) orally once a day Calcium 600+D 600 mg-5 mcg ( (more content not included)... Normal [facility] Preop Checkliston 03-13-2021 Preop Checklist Preop Checklist: Preop Checklist: Arrival [id number] Arrival Time06:40 Procedure Typeright cataract Temperature C37.1 degrees C Temperature F98.8 degrees F Heart Rate76 beats per minute Respiratory Rate16 breath per minute Blood Pressure [id number] mm/Hg Blood Pressure Kgrlvcmwt04 mm/Hg NPO [id number] 17:00 ID Band Onyes Allergy Bandno known allergies Consent Signedyes H&P Completeyes Anesthesia Assessment Completedyes EKG Performednot ordered Chest X-Ray Performednot ordered HCG Urine TestN/A Chlorhexadine Bath Givennot applicable Nasal Antiseptic Appliednot applicable Hair Washednot applicable Soap and water bath with hair shampoo the night before surgerynot applicable Hat placed on infant prior to transportnot applicable SCD's Appliednot applicable CELESTE Hose Appliednot ordered Denturesnot applicable Prostheticsnot applicable Hearing Aidsnot applicable Valuables Securednot applicable Glasses / Contactsnot applicable Bowel Prepno Cardiovascular Assessment: Apicalregular Extremitieswarm Respiratory Assessment: Respirationsunlabored Air Exchangegood, equal Breath Soundsclear Neurological Assessment: Level of Consciousnessalert Mobilitymoves all extremities Able to Express Selfyes Age Appropriateyes Emotional Statuscalm Skin Assessment: Skin Site(s) with Current Compromisenone Preop Education: Surgical Site Infection Preventionyes Pain Scales and Managementyes Language / Communication: Language / CommunicationEnglish Electronic Signatures: Ashley Lee (RN) (Signed 13-Mar-2021 07:12) Authored: Preop Checklist Last Updated: 13-Mar-2021 07:12 by Ashley Lee (RN) Normal [facility] CORONAVIRUS 2019, SCREEN ASY MPTOMATICon 03-12-2021 SARS-CoV-2 (COVID-19) RNA YESICA+probe Ql (Unsp spec) Not detected Normal Not Detected [facility] Comment on above: Result Comment: . This assay is designed to detect the N, ORF1ab and/or S genes of SARS-CoV-2 via nucleic acid amplification. A Negative (NOT DETECTED) result does not preclude 2019-nCoV infection since the adequacy of sample collection and/or low viral burden may result in presence of viral nucleic acids below the clinical sensitivity of this test method. Negative (NOT DETECTED) result should not be used as the sole basis for treatment or other patient management decisions. Rather negative results should be combined with clinical observations, patient history, and epidemiological information to make patient management decisions. Fact sheet for providers: https://www.fda.gov/media/532419/download Fact sheet for patients: https://www.fda.gov/media/627354/download This test has received FDA Emergency Use Authorization (EUA) and has been verified by [facility] ([facility]). This test is only authorized for the duration of time that circumstances exist to justify the authorization of the emergency use of in vitro diagnostic tests for the detection of SARS-CoV-2 virus and/or diagnosis of COVID-19 infection under section 564(b)(1) of the Act, 21 U.S.C. 360bbb-3(b)(1), unless the authorization is terminated or revoked sooner. [facility] is certified under CLIA-88 as qualified to perform high complexity testing. Testing is performed in the [facility] laboratories located at [address] [place] [address]. Performed By: #### C OVSC #### [facility] [id number] [place] [address] Covid 19 Resultson 1 SARS-CoV-2 (COVID-19) RNA YESICA+probe Ql (Unsp spec) NEGATIVE COVID-19 Test Coronaviruses are common world-wide and are the cause of many common colds. SARS-COV2 is a new coronavirus that began circulating worldwide in 2019 so we are calling it COVID-19. It has been estimated that four out of five patients with COVID-19 will recover at home without the need for medical attention. Symptoms of COVID-19 may include cough, fever, shortness of breath, loss of taste or smell and other flu-like symptoms including chills, sore muscles, sore throat, and headache. Severe illness is more common in older people and people with other health problems such as high blood pressure, obesity, and immune system problems. If the test is positive, you have COVID-19. You will be contacted by the ordering physicians office and instructed to remain on home isolation, in accordance with CDC guidelines. You may also be contacted by the [facility] to see if any of your close contacts may have been exposed to the virus and need to quarantine. If the test is negative, you likely do not have COVID-19 at this time, but you still may have a different illness that can spread to other people (like Influenza, or the Flu) and could still be at risk for getting COVID-19. We recommend that you stay away from other people to limit the spread of illness until your symptoms are improving and you are fever-free for 24 hours without the use of fever lowering medications such as acetaminophen or ibuprofen. No test is 100% accurate so if you are still concerned you may have COVID-19, talk to your doctor about the need to continue to stay away from others. Medicines Unless your provider told you not to use the following: Acetaminophen (Tylenol and others) is generally safe. Anti-inflammatory medications, such as Ibuprofen (Advil or Motrin) or Naproxen (Aleve) can also be used. Vtpy-yvd-muqzbjf cough and cold medicines can be used according to the instructions on the package. Some wqcw-gxv-duebpvw medicines also contain acetaminophen. Make sure you are not taking more than your recommended dose. For those not hospitalized, there is no specific treatment available for this illness. Antibiotics do not treat Coronaviruses. Follow-Up Follow up with your doctor by scheduling a virtual visit or consider follow-up at one of our urgent care fever clinics. If you are having difficulty breathing, or are very weak and having difficulty standing, this is a medical emergency. Call 911 or have someone take you to the nearest emergency room immediately. If possible, wear a facemask. Additional guidance from the CDC for patients who tested POSITIVE for COVID-19 How to isolate: Isolate yourself in a specific room at home and limit your contact with others. Use a separate bathroom from other members of the household, when possible. Leave home only to get essential medical care. Do not go to work, school or public areas. Avoid using public transportation, ride-sharing, or taxis. Restrict contact with pets and other animals. If you must care for your pet or be around animals while you are sick, wash your hands before and after your interaction and wear a facemask. Make sure that shared spaces in the home have good airflow, such as by an air conditioner or an opened window, weather permitting. Personal Hygiene Procedures: Wear a face mask when in the same room as other people or pets. If a face mask interferes with your breathing, others should wear a mask when sharing space with you. Frequent hand-washing: wash your hands with soap and water for at least 20 seconds. If soap and water are not available, use alcohol-based hand dtp operator. Avoid touching your eyes, nose, and mouth with unwashed hands. Household Hygiene Procedures: Avoid sharing personal household items such as dishes, glassware, cups, eating utensils, towels or bedding with other people or pets in your home. After use, these items should be washed with soap and hot water. Disinfect all high-touch surfaces every day with antibacterial cleaning solutions such as Lysol wipes, bleach, cleansers, etc. High-touch surfaces include tabletops, doorknobs, bathroom fixtures, toilets, phones, keyboards, tablets and bedside tables. Immediately clean any surfaces that may have blood, poop or body fluids on them, using antibacterial cleaning solutions such as Lysol wipes, bleach, cleansers, etc. If clothing or bedding come into contact with blood, poop or body fluids, they should be washed immediately. Follow the directions on the laundry detergent and clothing labels but hot water is recommended when possible. Stopping home isolation precautions: If possible, consult your doctor before stopping home isolation precautions. According to the CDC, you can discontinue home isolation precautions when you have met both of these criteria: Your fever and respiratory symptoms have been gone for 24 kiran (more content not included)... Normal [facility] CORONAVIRUS 2019, SCREEN ASY MPTOMATICon 03-11-2021 Lab Specimen Source Nasal, Nasopharyngeal Normal [facility] Comment on above: Performed By: #### C OVSC #### [facility] [address] [place] [address] HOSPon 03-11-2021 HOSP Patient:Alma RosaShauna franciscojoby luis Villatoro MRN: Height:No patient height recorded for this patient. Weight:No patient weight recorded within the last 30 days. Outpatient Medications as of 03/13/21: fluorometholone (FML LIQUID FILM) 0.1 % ophthalmic suspension keTORolac (ACULAR) 0.5 % ophthalmic solution prednisoLONE acetate (PRED FORTE) 1 % ophthalmic suspension calcium carbonate 600 mg-cholecalciferol 200 units 600 mg(1,500mg) -200 unit tab anastrozole (ARIMIDEX) 1 mg tablet denosumab (PROLIA) 60 mg/mL Admission/Clinic Administered Medications as of 03/13/21: Patient has no admission medications. Problem List: Combined form of age-related cataract, right eye [H25.811] Regular astigmatism of left eye [H52.222] Regular astigmatism of right eye [H52.221] History of breast cancer [Z85.3] Essential hypertension [I10] Status post cataract extraction and insertion of intraocular lens, left [Z98.42, Z96.1] Allergies: No Known Allergies Date Verified:03/11/21 Lab Values No results within the last 30 days for the following basenames: K,HCT Progress Notes (OPHT CHARTER [place]AK): Alba Paz MD 03/11/2021 11:32 AM Signed ASSESSMENT/PLAN: 1. Combined form of age-related cataract, right eye - ICD9: 366.19, ICD10: H25.811 (primary diagnosis) PHYSICAL EXAM: Vital Signs: Blood pressure 170/92, pulse 87. Respiratory: Normal breath sounds, no wheezing. CARD: Normal heart sounds 1 AND 2, normal sinus rhythm. Cataract Presurgical Documentation Cataract: Right eye Patient reported symptoms: Associated symptoms Positive for: Blurred Vision, difficulty with driving, difficulty with reading, difficulty with watching television, dryness, glare Negative for: Itching, flashes, floaters, tearing, halos, burning Current Visual Acuity: Right Eye Distance CC 20/50 Left Eye Distance SC 20/25 Visual Function: Aranza St states that the decline in vision from the cataract impedes the ability to read, watch television as well as other activities of daily living. Aranza St has confirmed that she is no longer able to function adequately on a day-to-day basis because of her current visual condition. Further, it is my medical opinion that the cataract is the primary cause, or at least a significantly contributory cause of her visual dysfunction. With uncomplicated cataract surgery and lens implantation, it is my expectation that her visual function and quality of life will improve, significantly. The risks, benefits, alternatives, personnel and complications of cataract surgery with lens implantation were discussed with Aranza St in detail. she appeared to understand and asked that I proceed with plans for surgery. Patient wishes to have traditional cataract surgery with basic Intraocular lens right eye 03/13/[address] [facility]. Patient wishes to have cataract surgery with the option stated above. Patient understands that an intraocular lens implant does not necessarily replace the need for glasses. Patient understands that it is impossible for the surgeon to inform him/her of every possible complication that may occur. The surgeon has answered all of the patient's questions. Patient understands that if he/she has a mature or dense cataract, pseudoexfoliation cataract, or history of use of Flomax, he/she may require the use of Maluyugin Ring and/or Vision Blue during surgery. Patient understands the risks, benefits, and alternatives to surgery. Discussed modified monovision with patient, right eye corrected for reading -1.25 target Patient would like to proceed with the modified monovision Use medications as directed: Current Ophthalmic Meds fluorometholone (FML LIQUID FILM) 0.1 % ophthalmic suspension Use 1 Drop in the right eye three times daily. Systane Complete Artificial Tears - Use 1 Drop into both eyes three times a day. 2. Status post cataract extraction and insertion of intraocular lens, left - ICD9: V45.61, V43.1, ICD10: Z98.42, Z96.1 Current Ophthalmic Meds keTORolac (ACULAR) 0.5 % ophthalmic solution Use 1 Drop in the left eye three times daily until 04/03/2021 prednisoLONE acetate (PRED FORTE) 1 % ophthalmic suspension Use 1 Drop in the left eye three times daily until 04/03/2021 3. History of breast cancer - ICD9: V10.3, ICD10: Z85.3 4. Essential hypertension - ICD9: 401.9, ICD10: I10 Patient received surgical clearance from PCP on 01-23-2021. Continue care with your primary care provider as directed. ? Alba Paz MD I have confirmed and edited as necessary the relevant ophthalmic history, review of systems, surgical history, and ophthalmological examination findings as obtained by the ophthalmic technical staff. I have seen and examined Aranza Villarrealenhall. I have discussed the examination findings, diagnosis, and treatment options with Aranza St and/or her family. I have also reviewed and ag (more content not included)... Normal [facility] Patient Profile - Preop v2on 03-06-2021 Patient Profile - Preop v2 Profile: Initial Info: How to be Addressedbonnie(1) Spoken Language PreferredEnglish (1) Source of Informationpatient Instructions Givenappropriate clothing, bring responsible adult as the route driver (procedure may be cancelled if no route driver), center location, insurance information Prep Instructions Reviewedyes Instructed to Have No Fluids Aftermidnight Stated Reason for Admissioneye surgery Primary Contact Name and [phone] Patient Belongingsremains with patient Patient Belongings Remaining with Patientclothing Medications Brought to Hospitalyes General Health: Weight in kg63 kilogram(s) Weight in sma791.8 pound(s) Weight Methodactual (measured) Scale Typestanding Height in feet5 feet Height in inches2 inch(es) Height in cm157.4 centimeter(s) Height Methodstated BMI (kg/m2)25.429 square meter Patient or Family Member Reaction to Anesthesiano previous reaction; no previous family member reaction Health Mgmt: Symptoms/Conditions Managed at Homeendocrine Barriers to Managing Healthnone Relationship/Environ: Living Arrangementshouse Resource/Environmental Concernsnone Substance: Smoking Statusnever smoker Alcohol Usedenies Drug Usedenies Drug 2 Usedenies Risk Screens: COVID-19 Screening Completedno exposure or symptoms Travel or ExposureNO travel to International locations in the past 30 days Advance Directive/DNRyes Advance Directive typeLiving Will, Durable Power of [place] Of [place] for Healthcare Living Will AvailabilityLiving Will not available now Durable Power of [place] Of [place] AvailabilityDPOA not available now During the past month, have you often been bothered by feeling down, depressed or hopelessno During the past month, have you often had little interest or pleasure in doing thingsno Have you had any thoughts of harming anyone elseno Risk Screen Not Applicable/Able to Answerable to be screened In the Past Month: Have you wished you were or could go to sleep and not wake upno In the Past Month: Have you had any actual thoughts of killing yourselfno Lifetime: Have you ever done, started to do, or prepared to do anything to end your lifeno Are you or have you been threatened or abused physically,emotionally or sexually abused by anyoneno Do you feel UNSAFE going back to the place you are livingno Patient is Able to be Assessed for Learningyes Factors Influencing Readiness to Learninterest in learning; motivation to learn Factors that Impact Ability to Learnnone Devices/Methods Used to Communicatenone Learning Preferencesverbal instruction; written material Cultural Considerationsnone Developmental Considerationsnone Nondenominational Considerationsnone Other learner availableno [place] RiskPatient location auto qualifies him/her for HIGH RISK. Are there any cultural, spiritual, pentecostalism practices/values/needs that are important for us to knowno Pain Scalenumerical 0-10 Pain Scale Educationteaching provided Current Pain Level3 = Mild Acceptable Pain Level3 = Mild Chronic Painno Information Review: Allergies, Home Meds and Significant Events have been Reviewed and Verified with Patient/Familyyes Allergy, Intolerance, Adverse Event: Allergies: No Known Allergies: Active Electronic Signatures: Ashley Lee (HANS) (Signed 13-Mar-2021 07:21) Authored: Health Mgmt, Additional Information Janine Scanlon) (Signed 06-Mar-2021 13:23) Authored: Initial Info, General Health, Relationship/Environ, Substance, Risk Screens, Additional Information Last Updated: 13-Mar-2021 07:21 by Ashley Lee (RN) References: 1. Data Referenced From Patient Profile - Preop v2 25-Feb-2021 13:20 [facility] Order Reconciliationon 02-27 Order Reconciliation Page 1 Discharge Reconciliation Document Reconciliation Type: Discharge requested on behalf of Alba Paz (Physician) done by Alba Paz) Discharge - Reconciliation: 27-Feb-2021 07:04 by: Alba Paz) Home Medications EnteredHOME MEDICATIONS AT DISCHARGE DateReconciliation Comment/ Additional Information Arimidex 1 mg oral tablet 1 tab(s) orally once a day 25-Feb-2021 12:35 Arimidex 1 mg oral tablet 1 tab(s) orally once a day 25-Feb-2021 12:35 Arimidex 1 mg oral tablet is continued as Arimidex 1 mg oral tablet Calcium 600+D 600 mg-5 mcg (200 intl units) oral tablet 1 tab(s) orally once a day 25-Feb-2021 12:35 Calcium 600+D 600 mg-5 mcg (200 intl units) oral tablet 1 tab(s) orally once a day 25-Feb-2021 12:35 Calcium 600+D 600 mg-5 mcg (200 intl units) oral tablet is continued as Calcium 600+D 600 mg-5 mcg (200 intl units) oral tablet Home Medications Added During Discharge Reconciliation Additional Patient Instructions Follow printed discharge instructions Discharge Discharge Diagnosis< 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 Do not remove any midline, if present, without an order from the provider. Discharge Instructions - PHR After your discharge from the hospital, two Summary of Care Documents will be available online in your Personal Health Record (PHR). 1.Consolidated-Clinical Document Architecture (C-CDA) Patient Discharge Summary This document is a summary of your hospital stay to be kept for your reference.2.C-CDA Visit Summary This document is a summary of your hospital stay to be shared with your follow-up providers (doctor, entry specialists, physical therapist, etc.). Post Procedure Discharge Criteria Criteria: Easily arousable / responding appropriately; Significant complications are absent; SpO2 = or > 92%, or if SpO2 < 92%, maintains within 2% of baseline; Vital signs +/- 20% of preprocedure status; Ambulates without dizziness / age appropriate activity and ambulatory status returns to pre-procedure baseline. 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 Do not remove any midline, if present, without an order from the provider. Discharge Instructions - PHR After your discharge from the hospital, two Summary of Care Documents will be available online in your Personal Health Record (PHR). 1.Consolidated-Clinical Document Architecture (C-CDA) Patient Discharge Summary This document is a summary of your hospital stay to be kept for your reference.2.C-CDA Visit Summary This document is a summary of your hospital stay to be shared with your follow-up providers (doctor, entry specialists, physical therapist, etc.). Post Procedure Discharge Criteria Criteria: Easily arousable / responding appropriately; Significant complications are absent; SpO2 = or > 92%, or if SpO2 < 92%, maintains within 2% of baseline; Vital signs +/- 20% of preprocedure status; Ambulates without dizziness / age appropriate activity and ambulatory status returns to pre-procedure baseline. Normal [facility] Preop Checkliston 02-27-2021 Preop Checklist Preop Checklist: Preop Checklist: Arrival [id number] Arrival Time06:46 Procedure TypeLeft cataract Temperature C36.4 degrees C Temperature F97.5 degrees F Heart Rate92 beats per minute Respiratory Rate23 breath per minute Blood Pressure Lpqbbdwi081 mm/Hg Blood Pressure Kaplqmwhd11 mm/Hg NPO [id number] 21:00 ID Band Onyes Allergy Bandno known allergies Consent Signedyes H&P Completeyes Anesthesia Assessment Completedyes SCD's Appliednot applicable CELESTE Hose Appliednot ordered Denturesnot applicable Prostheticsnot applicable Hearing Aidsnot applicable Valuables Securednot applicable Glasses / Contactsnot applicable Cardiovascular Assessment: Apicalregular Radial Pulsespalpable Respiratory Assessment: Respirationsunlabored regular Air Exchangeequal, good Breath Soundsclear Neurological Assessment: Level of Consciousnessalert, oriented Mobilitymoves all extremities Able to Express Selfyes Age Appropriateyes Emotional Statuscalm Skin Assessment: Skin Site(s) with Current Compromisenone Preop Education: Surgical Site Infection Preventionyes Pain Scales and Managementyes Language / Communication: Language / CommunicationEnglish Electronic Signatures: Marni Linder (HANS) (Signed 27-Feb-2021 07:55) Authored: Preop Checklist Last Updated: 27-Feb-2021 07:55 by Marni Linder (HANS) [facility] Patient Profile - Preop v2on 02-25-2021 Patient Profile - Preop v2 Profile: Initial Info: How to be Addressedbonnie Spoken Language PreferredEnglish Source of Informationpatient Instructions Givenappropriate clothing, bring responsible adult as the route driver (procedure may be cancelled if no route driver), center location, insurance information Prep Instructions Reviewedyes Instructed to Have No Fluids Aftermidnight Stated Reason for Admissioneye surgery Primary Contact Name and [phone] Patient Belongingsremains with patient Patient Belongings Remaining with Patientclothing Medications Brought to Hospitalyes General Health: Weight in kg63 kilogram(s) Weight in nkr196.8 pound(s) Weight Methodactual (measured) Scale Typestanding Height in feet5 feet Height in inches2 inch(es) Height in cm157.4 centimeter(s) Height Methodstated BMI (kg/m2)25.429 square meter Patient or Family Member Reaction to Anesthesiano previous reaction; no previous family member reaction Relationship/Environ: Living Arrangementshouse Resource/Environmental Concernsnone Substance: Smoking Statusnever smoker Alcohol Usedenies Drug Usedenies Drug 2 Usedenies Risk Screens: COVID-19 Screening Completedno exposure or symptoms Travel or ExposureNO travel to International locations in the past 30 days Advance Directive/DNRyes Advance Directive typeLiving Will, Durable Power of [place] Of [place] for Healthcare Living Will AvailabilityLiving Will not available now Durable Power of Head Of [place] AvailabilityDPOA not available now During the past month, have you often been bothered by feeling down, depressed or hopelessno During the past month, have you often had little interest or pleasure in doing thingsno Have you had any thoughts of harming anyone elseno Risk Screen Not Applicable/Able to Answerable to be screened In the Past Month: Have you wished you were or could go to sleep and not wake upno In the Past Month: Have you had any actual thoughts of killing yourselfno Lifetime: Have you ever done, started to do, or prepared to do anything to end your lifeno Are you or have you been threatened or abused physically,emotionally or sexually abused by anyoneno Do you feel UNSAFE going back to the place you are livingno Patient is Able to be Assessed for Learningyes Factors Influencing Readiness to Learninterest in learning; motivation to learn Factors that Impact Ability to Learnnone Devices/Methods Used to Communicatenone Learning Preferencesverbal instruction; written material Cultural Considerationsnone Developmental Considerationsnone Nondenominational Considerationsnone Other learner availableno [place] RiskPatient location auto qualifies him/her for HIGH RISK. Are there any cultural, spiritual, pentecostalism practices/values/needs that are important for us to knowno Pain Scalenumerical 0-10 Pain Scale Educationteaching provided Current Pain Level3 = Mild Acceptable Pain Level3 = Mild Chronic Painno Information Review: Allergies, Home Meds and Significant Events have been Reviewed and Verified with Patient/Familyyes Allergy, Intolerance, Adverse Event: Allergies: No Known Allergies: Active Problem List: Medical History: Breast cancer: Catalog Name: Malignant neoplasm of unspecified site of unspecified female breast Surg History: S/P breast lumpectomy: Catalog Name: Other specified postprocedural states History of hysterectomy: Catalog Name: Acquired absence of both cervix and uterus Electronic Signatures: Marni Linder) (Signed 27-Feb-2021 07:13) Authored: Initial Info, General Health, Relationship/Environ, Risk Screens, Additional Information Janine Scanlon) (Signed 25-Feb-2021 13:22) Authored: Initial Info, General Health, Substance, Risk Screens, Additional Information Last Updated: 27-Feb-2021 07:13 by Marni Linder) [facility] 01-29-2021 HOSP Patient:Shauna St ie B MRN: Height:No patient height recorded for this patient. Weight:No patient weight recorded within the last 30 days. Outpatient Medications as of 02/28/21: fluorometholone (FML LIQUID FILM) 0.1 % ophthalmic suspension keTORolac (ACULAR) 0.5 % ophthalmic solution prednisoLONE acetate (PRED FORTE) 1 % ophthalmic suspension calcium carbonate 600 mg-cholecalciferol 200 units 600 mg(1,500mg) -200 unit tab anastrozole (ARIMIDEX) 1 mg tablet denosumab (PROLIA) 60 mg/mL Admission/Clinic Administered Medications as of 02/28/21: Patient has no admission medications. Problem List: Combined form of age-related cataract, left eye [H25.812] Combined form of age-related cataract, right eye [H25.811] Regular astigmatism of left eye [H52.222] Regular astigmatism of right eye [H52.221] History of breast cancer [Z85.3] Essential hypertension [I10] Allergies: No Known Allergies Date Verified:02/28/21 Lab Values No results within the last 30 days for the following basenames: K,HCT Progress Notes (OPHT CHARTER [place]): Alba Paz MD 02/28/2021 9:53 AM Addendum Current Ophthalmic Meds fluorometholone (FML LIQUID FILM) 0.1 % ophthalmic suspension Use 1 Drop in the right eye three times daily keTORolac (ACULAR) 0.5 % ophthalmic solution Use 1 Drop in the left eye four times daily for 7 days, then three times daily until 04/03/2021 prednisoLONE acetate (PRED FORTE) 1 % ophthalmic suspension Use 1 Drop in the left eye four times daily for 7 days, then three times daily until 04/03/2021 Systane Complete Artificial Tears - Use 1 Drop into both eyes three times a day. Alba Paz MD 02/28/2021 10:41 AM Signed ASSESSMENT/PLAN: 1. Combined form of age-related cataract, right eye - ICD9: 366.19, ICD10: H25.811 (primary diagnosis) 2. Regular astigmatism of right eye - ICD9: 367.21, ICD10: H52.221 - [facility] ONLY - DIAGNOSTIC OD (RIGHT EYE) Cataract Presurgical Documentation Cataract: Right eye (OD) Patient reported symptoms: Associated symptoms Positive for: Blurred Vision, difficulty with driving, difficulty with reading, difficulty with watching television, glare Negative for: Double Vision, eye redness, foreign body sensation, decreased vision, photophobia, itching, eye discharge, flashes, floaters, inability to meet visual needs of job, tearing, crossed eye, dryness, halos, ghost images, starbursts, wandering eye, burning, puffy eyes, droopy eyes Current Visual Acuity: Right Eye Distance CC 20/50 Left Eye Distance SC 20/40 Right Eye Medium 20/70 Visual Function: Aranza [address] states that the decline in vision from the cataract impedes the ability to drive and read as well as other activities of daily living. Aranza [address] has confirmed that she is no longer able to function adequately on a day-to-day basis because of her current visual condition. Further, it is my medical opinion that the cataract is the primary cause, or at least a significantly contributory cause of her visual dysfunction. With uncomplicated cataract surgery and lens implantation, it is my expectation that her visual function and quality of life will improve, significantly. The risks, benefits, alternatives, personnel and complications of cataract surgery with lens implantation were discussed with Aranza [address] in detail. she appeared to understand and asked that I proceed with plans for surgery. Patient wishes to have traditional cataract surgery with basic Intraocular lens right eye 03/13/2021 Patient wishes to have cataract surgery with the option stated above. Patient understands that an intraocular lens implant does not necessarily replace the need for glasses. Patient understands that it is impossible for the surgeon to inform him/her of every possible complication that may occur. The surgeon has answered all of the patient's questions. Patient understands that if he/she has a mature or dense cataract, pseudoexfoliation cataract, or history of use of Flomax, he/she may require the use of Maluyugin Ring and/or Vision Blue during surgery. Patient understands the risks, benefits, and alternatives to surgery. PHYSICAL EXAM: Vital Signs: Blood pressure 170/92, pulse 87. Respiratory: Normal breath sounds, no wheezing. CARD: Normal heart sounds 1 AND 2, normal sinus rhythm. Current Ophthalmic Meds fluorometholone (FML LIQUID FILM) 0.1 % ophthalmic suspension Use 1 Drop in the right eye three times daily. Systane Complete Artificial Tears - Use 1 Drop into both eyes three times a day. 3. Status post cataract extraction and insertion of intraocular lens of left eye - ICD9: V45.61, V43.1, ICD10: Z98.42, Z96.1 - Intraocular lens well centered and clear Left eye SC 20/40 (-2) Current Ophthalmic Meds keTORolac (ACULAR) 0.5 % ophthalmic solution Use 1 Drop in the left eye four times daily. prednisoLONE acetate (PRED FORTE) 1 % ophthalmic suspension (more content not included)... Normal [facility] Absolute lymphocyte counton 02-22-2020 Lymphocytes Auto (Unsp spec) [#/Vol] 1.87 10*3/uL 0.83-4.51 [facility] Work Phone: Basophil percentageon 2019 Bilirubin [Mass/Vol] 0.40 mg/dL 0.20-1.00 [facility] Work Phone: Comment on above: For patients on eltr ombopag therapy, use of Dimension [place] TBIL is not recommended. Chloride [Moles/Vol] 108 mmol/L 98-107 [facility] Work Phone: Eosinophils/100 WBC (Bld) 3.4 % 0-5 [facility] Work Phone: Glucose [Mass/Vol] 104 mg/dL 74-106 [facility] Work Phone: Comment on above: Fasting Glucose resu lt from 100 to 125 mg/dL suggests IMPAIRED HOMEOSTASIS per A.D.A. criteria.Please note revised GLUCOSE reference range effective 2017. Neutrophils (Bld) [#/Vol] 3.4 10*3/uL 2.0-7.7 [facility] Work Phone: Potassium [Moles/Vol] 3.8 mmol/L 3.5-5.1 [facility] Work Phone: Protein [Mass/Vol] 7.4 g/dL 6.4-8.2 [facility] Work Phone: [phone] Sodium [Moles/Vol] 141 mmol/L 136-145 [facility] Work Phone: [phone] WBC (Bld) [#/Vol] 6.1 10*3/uL 4.4-11.0 [facility] Work Phone: [phone] Blood erythrocytes count (nu mber/volume)on 02-22-2020 RBC (Bld) [#/Vol] 4.24 10*6/uL 4.2-5.4 [facility] Work Phone: [phone] Blood hemoglobin measurement (mass/volume)on 02-22-2020 Hemoglobin (Bld) [Mass/Vol] 12.7 g/dL 12.0-15.0 [facility] Work Phone: [phone] Blood lymphocytes/100 leukoc yteson 02-22-2020 Lymphocytes/100 WBC (Bld) 30.7 % 19-41 [facility] Work Phone: [phone] Blood monocytes/100 leukocyt eson 02-22-2020 Monocytes/100 WBC (Bld) 8.4 % 0-10 [facility] Work Phone: [phone] Blood platelet mean volumeon 02-22-2020 Platelet mean volume (Bld) [Entitic vol] 9.4 fL 6.2-12.0 [facility] Work Phone: [phone] Determination of erythrocyte mean corpuscular volume (MCV)on 02-22-2020 MCV (RBC) [Entitic vol] 92.2 fL 81-99 [facility] Work Phone: [phone] Hematocrit Auto (Bld) [Volum e fraction]on 02-22-2020 Hematocrit (Bld) [Volume fraction] 39.1 % 37-47 [facility] Work Phone: [phone] Laboratory - Chemistry and C hemistry - challengeon 02-22-2020 ALP [Catalytic activity/Vol] 69 U/L 45-117 [facility] Work Phone: [phone] ALT [Catalytic activity/Vol] 17 U/L 13-56 [facility] Work Phone: [phone] CO2 [Moles/Vol] 28.0 mmol/L 21.0-32.0 [facility] Work Phone: [phone] Globulin (S) [Mass/Vol] 3.6 g/dL 2.2-4.2 [facility] Work Phone: [phone] Urea nitrogen/Creatinine [Mass ratio] 18.5 mg/mg 10-20 [facility] Work Phone: [phone] Laboratory - Hematology and Cell countson 02-22-2020 Basophils/100 WBC (Unsp spec) 1.3 % 0-1 [facility] Work Phone: [phone] Erythrocyte distribution width (RBC) [Entitic vol] 43.8 fL 35.1-43.9 [facility] Work Phone: [phone] Erythrocyte distribution width (RBC) [Ratio] 13.0 % 11.6-14.6 [facility] Work Phone: [phone] Immature granulocytes/100 WBC (Bld) 0.300 % 0.0-0.9 [facility] Work Phone: [phone] Comment on above: IG% - Immature Granu locytes (promyelocytes, myelocytes and metamyelocytes) > 1% indicates that a LEFT SHIFT is Present. MCH (RBC) [Entitic mass] 30.0 pg 27.0-32.0 [facility] Work Phone: [phone] Neutrophils/100 WBC (Bld) 55.9 % 47-70 [facility] Work Phone: [phone] Nucleated RBC/100 WBC (Bld) [Ratio] 0 % 0-5 [facility] Work Phone: [phone] MCHC Auto (RBC) [Mass/Vol]on 02-22-2020 MCHC (RBC) [Mass/Vol] 32.5 g/dL 32-36 [facility]: [phone] No Panel Informationon 02-21 Estimated Creatinine Clearance Calc 45.93 ml/min [facility] Work Phone: [phone] Estimated GFR (MDRD) Amer 83 mL/min >60 [facility] Work Phone: [phone] Comment on above: GFR Calc Estimated GFR (MDRD) Non-Af Amer 69 mL/min >60 [facility] Work Phone: Comment on above: Non- GFR Calc Platelets bldon 02-22-2020 Platelets (Bld) [#/Vol] 258 10*3/uL 150-450 [facility] Work Phone: Serum or plasma albumin william urement (mass/volume)on 02-22-2020 Albumin [Mass/Vol] 3.8 g/dL 3.2-5.0 [facility] Work Phone: [phone] Serum or plasma albumin/glob ulin mass ratioon 02-22-2020 Albumin/Globulin [Mass ratio] 1.1 {ratio} 0.9-2.4 [facility] Work Phone: [phone] Serum or plasma calcium william urement (mass/volume)on 02-22-2020 Calcium [Mass/Vol] 9.4 mg/dL 8.5-10.1 [facility] Work Phone: [phone] Serum or plasma creatinine m easurement (mass/volume)on 02-22-2020 Creatinine [Mass/Vol] 0.86 mg/dL 0.55-1.02 [facility] Work Phone: Comment on above: The validity of the calculated GFR & GFRAA in patients over 70 years has not been determined. Clinical correlation is essential. Serum or plasma urea nitroge n measurement (mass/volume)on 02-22-2020 Urea nitrogen [Mass/Vol] 16 mg/dL 7-18 [facility] Work Phone: [phone] Thin prep Papanicolaou smear with manual screeningon 02-22-2020 Thin prep Papanicolaou smear with manual screening 17 U/L 15-37 [facility] Work Phone: [phone] Thin prep Papanicolaou smear with manual screening 5 5-15 [facility] Work Phone: [phone] Erythrocyte distribution wid th standard deviationon 10-20-2018 Erythrocyte distribution width (RBC) [Entitic vol] 53.6 fL High 35.1-43.9 [facility] Laboratory - Hematology and Cell countson 10-20-2018 Erythrocyte distribution width (RBC) [Ratio] 15.3 % High 11.6-14.6 [facility] Total cell counton 9 Cells counted Molgen (Bld/Tiss) [#] Not Reportable [facility] Blood platelet adequacy dete ction by light microscopyon 09-08-2018 Platelets LM Ql (Bld) ADEQUATE ADEQ [facility] - Hematology and Cell countson 09-08-2018 Band form neutrophils/100 WBC (Bld) 1 % 0-5 [facility] Lymphocytes/100 WBC (Bld) 7 % Low 19-41 [facility] Metamyelocytes/100 WBC (Bld) 4 % High 0-1 [facility] Monocytes/100 WBC (Bld) 11 % High 0-10 [facility] Neutrophils/100 WBC (Bld) 73 % High 47-70 [facility] No Panel Informationon 09-08 Blast Cells % 1 % High 0-0 [facility] Promyelocytes % 3 High 0-0 [facility] RBC morphologyon 09-08-2018 RBC morphology finding Nom (Bld) NORM C+C NORMAL NORM C&C [facility] Review by pathologiston 08-20 Pathologist review Topher (Unsp spec) [Interp] Reviewed [facility] Comment on above: Previous reported re sult: Petra parra Edited by: GERRI on 09/12/18:0937Neutrophilic leukocytosis with left shift. Clinical correlation necessary.Ender Reed M.D. 09/12/18 AMENDED REPORT 09/12/18 0937 PATH REV previously reported as: Petra parra No Panel Information SARS-CoV-2 & FLU Antigen (Rapid) SARS-CoV-2 (COVID 19) [facility] Work Phone: Vital Signs Date Time Vital Sign Value Performing Clinician Lavell jenkins 12-07-2024 13:56-0400 Body height 154.[address] Dalton Bonilla MD Work Phone: [facility] 12-07-2024 13:56-0400 Body mass index (BMI) [Ratio] 21.5 kg/m2 Dr. Dalton Bonilla MD Work Phone: [facility] 12-07-2024 13:56-0400 Body temperature 97.8 [degF] Dr. Dalton Bonilla MD Work Phone: [facility] 12-07-2024 13:56-0400 Body weight 51.[address] Dalton Bonilla MD Work Phone: [facility] 12-07-2024 13:56-0400 Diastolic blood pressure 80 mm[Hg] Dr. Dalton Bonilla MD Work Phone: [facility] 12-07-2024 13:56-0400 Heart rate 96 /min Dr. Dalton Bonilla MD Work Phone: [facility] 12-07-2024 13:56-0400 Respiratory rate 14 /min Dr. Dalton Bonilla MD Work Phone: [facility] 12-07-2024 13:56-0400 SaO2% (BldA) [Mass fraction] 95 % Dr. Dalton Bonilla MD Work Phone: [facility] 12-07-2024 13:56-0400 Systolic blood pressure 147 mm[Hg] Dr. Dalton Bonilla MD Work Phone: [facility] 06-05-2024 11:39-0500 Body mass index (BMI) [Ratio] 21.2 kg/m2 Dr. Dalton Bonilla MD Work Phone: [facility] 06-05-2024 11:39-0500 Body temperature 97.1 [degF] Dr. Dalton Bonilla MD Work Phone: [facility] 06-05-2024 11:39-0500 Diastolic blood pressure 66 mm[Hg] Dr. Dalton Bonilla MD Work Phone: [facility] 06-05-2024 11:39-0500 Heart rate 86 /min Dr. Dalton Bonilla MD Work Phone: [facility] 06-05-2024 11:39-0500 Respiratory rate 16 /min Dr. Dalton Bonilla MD Work Phone: [facility] 06-05-2024 11:39-0500 SaO2% (BldA) [Mass fraction] 97 % Dr. Dalton Bonilla MD Work Phone: [facility] 06-05-2024 11:39-0500 Systolic blood pressure 130 mm[Hg] Dr. Dalton Bonilla MD Work Phone: [facility] 11-26-2022 16:17-0400 Body height 154.[address] [facility] 11-26-2022 16:17-0400 Body mass index (BMI) [Ratio] 27.3 kg/m2 [facility] 11-26-2022 16:17-0400 Body weight 65.[address] [facility] 05-12-2022 12:05-0500 Body height 157.[address] Dalton Bonilla Work Phone: [facility] Work Phone: 04-28-2022 08:55-0500 Body weight 60.[address] Dalton Bonilla Work Phone: [facility] Work Phone: 04-28-2022 08:55-0500 Diastolic blood pressure 88 mm[Hg] Dr. Dalton Bonilla Work Phone: [facility] Work Phone: 04-28-2022 08:55-0500 Heart rate 93 /min Dr. Dalton Bonilla Work Phone: [facility] Work Phone: 04-28-2022 08:55-0500 Respiratory rate 17 /min Dr. Dalton Bonilla Work Phone: [facility] Work Phone: 04-28-2022 08:55-0500 SaO2% (BldA) [Mass fraction] 96 % Dr. Dalton Bonilla Work Phone: [facility] Work Phone: 04-28-2022 08:55-0500 Systolic blood pressure 138 mm[Hg] Dr. Dalton Bonilla Work Phone: [facility] Work Phone: 04-27-2022 15:29-0500 Body mass index (BMI) [Ratio] 24.4 kg/m2 Dr. Dalton Bonilla Work Phone: [facility] Work Phone: 04-27-2022 15:29-0500 Body temperature 97.4 [degF] Dr. Dalton Bonilla Work Phone: [facility] Work Phone: 04-27-2022 15:29-0500 Body weight 60.[address] Dalton Bonilla Work Phone: [facility] Work Phone: 04-27-2022 15:29-0500 Diastolic blood pressure 87 mm[Hg] Dr. Dalton Bonilla Work Phone: [facility] Work Phone: 04-27-2022 15:29-0500 Heart rate 92 /min Dr. Dalton Bonilla Work Phone: [facility] Work Phone: 04-27-2022 15:29-0500 Respiratory rate 16 /min Dr. Dalton Bonilla Work Phone: [facility] Work Phone: 04-27-2022 15:29-0500 SaO2% (BldA) [Mass fraction] 96 % Dr. Dalton Bonilla Work Phone: [facility] Work Phone: 04-27-2022 15:29-0500 Systolic blood pressure 159 mm[Hg] Dr. Dalton Bonilla Work Phone: [facility] Work Phone: 02-24-2022 14:50-0400 Body mass index (BMI) [Ratio] 26.6 kg/m2 Dr. Dalton Bonilla Work Phone: [facility] Work Phone: 02-24-2022 14:50-0400 Body temperature 97.4 [degF] Dr. Dalton Bonilla Work Phone: [facility] Work Phone: 02-24-2022 14:50-0400 Body weight 66.[address] Dalton Bonilla Work Phone: [facility] Work Phone: 02-24-2022 14:50-0400 Diastolic blood pressure 76 mm[Hg] Dr. Dalton Bonilla Work Phone: [facility] Work Phone: 02-24-2022 14:50-0400 Heart rate 74 /min Dr. Dalton Bonilla Work Phone: [facility] Work Phone: 02-24-2022 14:50-0400 Respiratory rate 14 /min Dr. Dalton Bonilla Work Phone: [facility] Work Phone: 02-24-2022 14:50-0400 SaO2% (BldA) [Mass fraction] 97 % Dr. Dalton Bonilla Work Phone: [facility] Work Phone: 02-24-2022 14:50-0400 Systolic blood pressure 128 mm[Hg] Dr. Dalton Bonilla Work Phone: [facility] Work Phone: 02-18-2022 13:18-0400 Body height 157.[address] Dalton Bonilla Work Phone: [facility] Work Phone: 02-18-2022 13:18-0400 Body mass index (BMI) [Ratio] 26.5 kg/m2 Dr. Dalton Bonilla Work Phone: [facility] Work Phone: 02-18-2022 13:18-0400 Body temperature 97.8 [degF] Dr. Dalton Bonilla Work Phone: [facility] Work Phone: 02-18-2022 13:18-0400 Body weight 65.[address] Dalton Bonilla Work Phone: [facility] Work Phone: 02-18-2022 13:18-0400 Diastolic blood pressure 84 mm[Hg] Dr. Dalton Bonilla Work Phone: [facility] Work Phone: 02-18-2022 13:18-0400 Heart rate 78 /min Dr. Dalton Bonilla Work Phone: [facility] Work Phone: 02-18-2022 13:18-0400 Respiratory rate 18 /min Dr. Dalton Bonilla Work Phone: [facility] Work Phone: 02-18-2022 13:18-0400 SaO2% (BldA) [Mass fraction] 98 % Dr. Dalton Bonilla Work Phone: [facility] Work Phone: 02-18-2022 13:18-0400 Systolic blood pressure 171 mm[Hg] Dr. Dalton Bonilla Work Phone: [facility] Work Phone: 12-22-2021 04:46-0400 Diastolic blood pressure 70 mm[Hg] Dr. Dalton Bonilla Work Phone: [facility] Work Phone: 12-22-2021 04:46-0400 Heart rate 89 /min Dr. Dalton Bonilla Work Phone: [facility] Work Phone: 12-22-2021 04:46-0400 Respiratory rate 18 /min Dr. Dalton Bonilla Work Phone: [facility] Work Phone: 12-22-2021 04:46-0400 SaO2% (BldA) [Mass fraction] 98 % Dr. Datlon Bonilla Work Phone: [facility] Work Phone: 12-22-2021 04:46-0400 Systolic blood pressure 120 mm[Hg] Dr. Dalton Bonilla Work Phone: [facility] Work Phone: 12-22-2021 03:12-0400 Body height 157.[address] Dalton Bonilla Work Phone: [facility] Work Phone: 12-22-2021 03:12-0400 Body mass index (BMI) [Ratio] 25.7 kg/m2 Dr. Dalton Bonilla Work Phone: [facility] Work Phone: 12-22-2021 03:12-0400 Body temperature 98.2 [degF] Dr. Dalton Bonilla Work Phone: [facility] Work Phone: 12-22-2021 03:12-0400 Body weight 63.[address] Dalton Bonilla Work Phone: [facility] Work Phone: 11-04-2021 15:04-0400 Body mass index (BMI) [Ratio] 27.3 kg/m2 Dr. Dalton Bonilla Work Phone: [facility] Work Phone: 11-04-2021 15:04-0400 Body weight 65.[address] Dalton Bonilla Work Phone: [facility] Work Phone: 11-04-2021 14:05-0400 Body mass index (BMI) [Ratio] 26.4 kg/m2 Dr. Dalton Bonilla Work Phone: [facility] Work Phone: 11-04-2021 14:05-0400 Body temperature 97.1 [degF] Dr. Dalton Bonilla Work Phone: [facility] Work Phone: 11-04-2021 14:05-0400 Body weight 63.[address] Dalton Bonilla Work Phone: [facility] Work Phone: 11-04-2021 14:05-0400 Diastolic blood pressure 88 mm[Hg] Dr. Dalton Bonilla Work Phone: [facility] Work Phone: 11-04-2021 14:05-0400 Heart rate 89 /min Dr. Dalton Bonilla Work Phone: [facility] Work Phone: 11-04-2021 14:05-0400 Respiratory rate 16 /min Dr. Dalton Bonilla Work Phone: [facility] Work Phone: 11-04-2021 14:05-0400 SaO2% (BldA) [Mass fraction] 96 % Dr. Dalton Bonilla Work Phone: [facility] Work Phone: 11-04-2021 14:05-0400 Systolic blood pressure 135 mm[Hg] Dr. Dalton Bonilla Work Phone: [facility] Work Phone: 05-07-2021 15:00-0500 Body temperature 97.9 [degF] Dr. Dalton Bonilla Work Phone: [facility] 05-07-2021 15:00-0500 Diastolic blood pressure 69 mm[Hg] Dr. Dalton Bonilla Work Phone: [facility] 05-07-2021 15:00-0500 Heart rate 93 /min Dr. Dalton Bonilla Work Phone: [facility] 05-07-2021 15:00-0500 Respiratory rate 16 /min Dr. Dalton Bonilla Work Phone: [facility] 05-07-2021 15:00-0500 SaO2% (BldA) [Mass fraction] 98 % Dr. Dalton Bonilla Work Phone: [facility] 05-07-2021 15:00-0500 Systolic blood pressure 137 mm[Hg] Dr. Dalton Bonilla Work Phone: [facility] Encounters Encounter Date Encounter Type Care Provider Facility Start: 03-29-2025 ambulatory Dalton Bonilla Facili ty:[facility] Start: 12-07-[address] Paris Bhat MD -[facility] Start: 12-07-2024 End: 12-07-[address] Wendi Bhat MD -[facility] Work Phone: Start: 12-07-2024 End: 12-07-[address] Dalton Bonilla MD Work Phone: [facility] Work Phone: Start: 07-26-2024 End: 07-26-2024 ambulatory Dalton Bonilla Facility:[facility] Start: 07-21-2024 End: 07-21-2024 ambulatory Dalton Bonilla Facility:[facility] Start: 06-01-2024 End: 06-01-2024 [address] [place] [facility] Facility:[facility] Start: 05-25-2024 End: 05-25-2024 ambulatory [facility] Facility:[facility] Start: 05-17-2023 Registered Recurring [facility] Start: 05-17-2023 End: 05-17-2023 ambulatory [facility] Work Phone: Start: 05-17-2023 End: 05-17-2023 Patient encounter procedure [facility] Work Phone: Start: 05-12-2022 End: 05-12-[address] Dalton Bonilla Work Phone: [facility] Work Phone: Start: 05-12-2022 End: 05-12-[address] Dalton Bonilla Work Phone: [facility] Bone D[facility]ometry Start: 04-28-2022 End: 04-28-[address] Dalton Bonilla Work Phone: [facility] Start: 04-27-2022 End: 04-27-[address] Dalton Bonilla Work Phone: [facility] Start: 04-14-[address] Espinoza Bonilla Work Phone: [facility] [facility] Start: 02-24-2022 End: 02-24-[address] Dalton Bonilla Work Phone: [facility] Internal Medicine Start: 02-18-2022 End: 02-18-2022 Emergency department patient visit Dr. Dalton Bonilla Work Phone: [facility]-Emergency Department Start: 01-20-[address] Espinoza Bonilla Work Phone: [facility] On[facility] Start: 12-22-2021 End: 12-22-2021 Emergency department patient visit Dr. Dalton Bonilla Work Phone: [facility]-Emergency Department Start: 12-09-[address] Espinoza Bonilla Work Phone: [facility] On[facility] Start: 11-04-2021 End: 11-04-[address] Dalton Bonilla Work Phone: [facility] Start: 01-23-[address] Dalton Bonilla Work Phone: [facility] Start: 03-21-2018 End: 04-21-2018 Patient encounter procedure [facility] Facility:[facility] Procedures Date Procedure Procedure Detail Performing Clinician Start: 06-01-[address] Dalton Bonilla MD Work Phone: Start: 06-01-2024 Measurement of renal function Dr. Dalton Bonilla MD Work Phone: Comment on above: GFR Calc Start: 05-17-2023 Screening mammography Start: 05-12-2022 Screening mammography [place] Bonilla Work Phone: Start: 02-18-[address] Jadyn Bonilla Work Phone: Start: 02-18-2022 X-ray of both feet Dr. Dalton Bonilla Work Phone: Start: 12-22-2021 Plain chest X-ray Dr. Tevin Bonilla Work Phone: SARS-CoV-2 & FLU Ant igen (Rapid) Dr. Dalton Bonilla Work Phone: Plan of Treatment Date Care Activity Detail Author Start: 05-12-2022 Dual energy X-ray absorptiometry Dexa Bone Density Study [facility] Work Phone: Start: 04-27-2022 Patient referral [facility] Work Phone: Start: 03-03-2022 Venous catheter care management [facility] Start: 02-24-2022 Patient referral [facility] Work Phone: Start: 12-22-2021 [facility] Work Phone: Start: 02-05-2021 Venous catheter care management [facility] Start: 10-14-2020 Venous catheter care management [facility] Start: 09-04-2020 Venous catheter care management [facility] Start: 07-23-2020 Venous catheter care management [facility] Start: 12-14-2018 MG Breast - bilatera l Screening [facility] Start: 10-11-2018 [facility] Start: 09-08-2018 [facility] Start: 08-22-2018 [facility] Start: 08-01-2018 [facility] Start: 07-13-2018 [facility] Patient Education [facility] Work Phone: Patient referral [facility] Work Phone: [facility] Breast [facility] Work Phone: [facility] Breast [facility] Immunizations Immunization Date Immunization Notes Care Provider Fa cili 09-16-2020 Covid ([place]) Dr. Edilia Bonilla Work Phone: [facility] 08-19-2020 William ([place]) Dr. Edilia Bonilla Work Phone: [facility] Payers Date Payer Category Payer Private Health Insurance [id number] 2018 Self-pay [id number] 1959 Medicare [id number] 1950 Unknown [id number] [id number] Medicare [id number] Unknown [id number] [id number] [id number] Unknown [id number] 2.16.8 [id number] Unknown [id number] 2.16.8 [id number] Unknown [id number] 2.16.8 [id number] Unknown [id number] 2.16.8 [id number] Unknown [id number] 2.16.8 [id number] Social History Date Type Detail Facility Start: 12-22-2021 End: 04-28-2022 Tobacco smoking status FLIS Unknown if ever smoked [facility] Start: 07-29-2020 Non-smoker [facility] Start: 1950 Sex Assigned At Female W [facility] Start: 04-28-2022 Tobacco smoking stat us FLIS Never smoked tobacco (finding) [facility] Medical Equipment Procedure Code Equipment Code Equipment Origin al Text Equipment Identifier Dates SUTURE,LIGA CLIP MED [id number] FDA Start: 06-07-2018 SUTURE,LIGA CLIP MED LT200 FDA Start: 06-07-2018 SUTURE,LIGA CLIP MED LT200 FDA Start: 06-07-2018 SUTURE,LIGA CLIP MED LT200 FDA Start: 06-07-2018 SUTURE,LIGA CLIP SM LT-100 FDA Start: 06-07-2018 SUTURE,LIGA CLIP SM LT-100 FDA Start: 06-07-2018 SUTURE,LIGA CLIP SM LT-100 FDA Start: 06-07-2018 SUTURE,LIGA CLIP MED LT200 FDA Start: 06-07-2018 SUTURE,LIGA CLIP MED LT200 FDA Start: 06-07-2018 SUTURE,LIGA CLIP MED LT200 FDA Start: 06-07-2018 SUTURE,LIGA CLIP MED LT200 FDA Start: 06-07-2018 SUTURE,LIGA CLIP SM LT-100 FDA Start: 06-07-2018 SUTURE,LIGA CLIP SM LT-100 FDA Start: 06-07-2018 SUTURE,LIGA CLIP SM LT-100 FDA Start: 06-07-2018 SUTURE,LIGA CLIP MED LT200 FDA Start: 06-07-2018 SUTURE,LIGA CLIP MED LT200 FDA Start: 06-07-2018 SUTURE,LIGA CLIP MED LT200 FDA Start: 06-07-2018 SUTURE,LIGA CLIP MED LT200 FDA Start: 06-07-2018 SUTURE,LIGA CLIP SM LT-100 FDA Start: 06-07-2018 SUTURE,LIGA CLIP SM LT-100 FDA Start: 06-07-2018 SUTURE,LIGA CLIP SM LT-100 FDA Start: 06-07-2018 SUTURE,LIGA CLIP MED LT200 FDA Start: 06-07-2018 SUTURE,LIGA CLIP MED LT200 FDA Start: 06-07-2018 SUTURE,LIGA CLIP MED LT200 FDA Start: 06-07-2018 SUTURE,LIGA CLIP MED LT200 FDA Start: 06-07-2018 SUTURE,LIGA CLIP SM LT-100 FDA Start: 06-07-2018 SUTURE,LIGA CLIP SM LT-100 FDA Start: 06-07-2018 SUTURE,LIGA CLIP SM LT-100 FDA Start: 06-07-2018 SUTURE,LIGA CLIP MED LT200 FDA Start: 06-07-2018 SUTURE,LIGA CLIP MED LT200 FDA Start: 06-07-2018 SUTURE,LIGA CLIP MED LT200 FDA Start: 06-07-2018 SUTURE,LIGA CLIP MED LT200 FDA Start: 06-07-2018 SUTURE,LIGA CLIP SM LT-100 FDA Start: 06-07-2018 SUTURE,LIGA CLIP SM LT-100 FDA Start: 06-07-2018 SUTURE,LIGA CLIP SM LT-100 FDA Start: 06-07-2018 Mental Status Date Assessment Result Facility 06-05-2024 Cognitive function Voice/Name [facility] Work Phone: 11-26-2022 Cognitive function Voice/Name [facility] Work Phone: 07-04-2022 Cognitive function Level Of Cons ciousness Awake;Alert;Appropriate [facility] Work Phone: 11-04-2021 Cognitive function Voice/Name [facility] Work Phone: 04-24-2019 Cognitive function Mood Descript ion Appropriate;Calm;Relaxed [facility] Work Phone: Clinical Notes 04-28-2018 to 12-07-2024 Note Date & Type Note Facility 12-07-2024 Progress note [facility] 12-07-2024 Progress note Note Date/Time December 07, 2024 2:55pm [facility] [place] [address] OFFICE VISIT Date of Service: 12/07/24 1356 MR#: [id number] Acct: [id number] Name: ARANZA ST Rep #: [id number] : 1950 From: Wendi shin MD Age/Sex: 74/F Location: [facility] Status: Signed HPI Subjective Date of Service 12/07/24 Chief Complaint Breast cancer History of Present Illness Patient is a 74 year-old female with: #1- Right breast cancer presented in April 2018 with a newly felt lump in the right breast. Mammogram and ultrasound April 2018 is highly suspicious for malignancy. Biopsy on May 03, 2018 confirmed an invasive ductal cancer, ER (clone 6F11) positive, >95%, strong MD (clone 16/1E2) positive, >95%, strong Her-2Neu (clone CB11) negative (0-1+) On June 07, 2018 she underwent right breast partial mastectomy with sentinellymph node biopsy, pathology revealed: MICROSCOPIC DIAGNOSIS A. [...] focal area of micropapillary features. Histologic Grade (Pitman grade): Glandular/tubular differentiation - score 3 Nuclear [...] evaluation of sentinel lymph nodes - H & E, multiple levels and IHC. Distant metastasis not applicable Additional pathologic findings dense fibrosis and fibrocystic changes Ancillary studies - previously performed on section of tumor ([id number] / [id number]). ER positive (>95%, strong) MD - positive (>95%, strong) Her2 abril negative (0-1+) Microcalcifications present in invasive carcinoma. PATHOLOGIC STAGE: pT1c pN1a Mx #2- Left breast cancer that presented with a palpable lump in the left breast. February 03, 2012 she underwent a left breast partial mastectomy and left axillarylymph node dissection. Pathology revealed an invasive ductal cancer overall grade 2 with 1 of 13 lymph nodes positive for metastatic cancer. Cancer was ER negative, MD negative, HER-2 overexpressed. She received systemic adjuvant therapy with 4 cycles of AC, followed by weekly Taxol with Herceptin for 12 weeks then completed 1 year of adjuvant Herceptin by June 2012. He did receive adjuvant radiation therapy. [facility] care [facility] at [facility]. Treatment summary: 1. Right breast: Partial mastectomy with sentinel lymph node biopsy June 07, 2018. Adjuvant TC July 19, 2018-September 20, 2018. Arimidex 10/2018- 2. Left breast partial mastectomy with axillary lymph node dissection 2011 followed by adjuvant AC then T with 1 year of Herceptin concluded June 2012. Adjuvant radiation therapy 2011 Bone supportive therapy: Prolia 6699-5920, zoledronic acid (insurance preferred, 2023) PFSH Medical History Hypercalcemia Hyperlipidemia Insomnia Bone pain Mood disorder History of right breast cancer Screening for breast cancer History of left breast cancer Osteoporosis Avulsion fracture of metatarsal bone of right foot Right foot pain Abnormal EKG Preoperative evaluation to rule out surgical contraindication port placement Cancer of right breast Depression Cancer of left breast Surgical History History of hysterectomy History of lumpectomy Family History Father Cancer Social History household members: spouse housing: house Smoking Status: Never smoker second hand exposure: No alcohol intake: never substance use type: does not use what type of physical activity do you participate in: none gabriel/anglican: None seatbelt use: always do you feel safe at home: Yes ROS Constitutional Constitutional: Reports systems reviewed and no addt'l complaints, except as documented; Denies anorexia, fatigue, fever(s), night sweats or weight loss Eyes Eyes: Reports systems reviewed and no addt'l complaints, except as documented ENT HEENT: Reports systems reviewed and no addt'l complaints, except as documented Cardiovascular Cardiovascular: Reports systems reviewed and no addt'l complaints, except as documented; Denies chest pain with activity Respiratory/Chest Respiratory/Chest: Reports systems reviewed and no addt'l complaints, except as documented; Denies cough or dyspnea on exertion Gastrointestinal Gastrointestinal: Reports systems reviewed and no addt'l complaints, except as documented; Denies change in bowel habits Genitourinary Genitourinary: Reports systems reviewed and no addt'l complaints, except as documented; Denies hematuria Musculoskeletal Musculoskeletal: Reports systems reviewed and no addt'l complaints, except as documented, back pain and other Details: Occasional back pain ; Denies arthralgias Integumentary Integumentary: Reports systems reviewed and no addt'l complaints, except as documented; Denies rash Neurologic Neurologic: Reports systems reviewed and no addt'l complaints, except as documented; Denies headache(s) or weakness Psychiatric Psychiatric: Reports systems reviewed and no addt'l complaints, except as documented Endocrine Endocrinology: Reports systems reviewed and no addt'l complaints, except as documented; Denies flushing Hematologic/Lymphatic Hematologic/Lymphatic: Reports systems reviewed and no addt'l complaints, exceptas documented Allergic/Immunologic Allergic/Immunologic: Reports systems reviewed and no addt'l complaints, except as documented Intake Vital Signs 06/01/24 13:51 07/21/24 14:39 12/07/24 13:56 Height 5 ft 1 in 5 ft 1 in 5 ft 1 in Weight: 51.71 kg BMI 21.5 BP 147/80 H Blood Pressure Location Lt brachial Position Sitting Respiration 14 Pulse 96 Pulse Source Monitor Temp 97.8 F Temperature Source Temporal Artery Pulse Oximetry (%) 95 Oxygen Delivery Method room air Intake Business Continuity Analyst Required: No Accompanied by: Self Is patient in pain?: No Allergies No Known Allergies Allergy (Verified 12/07/24 13:59) Medications ?Medication ?Instructions ?Recorded ?Confirmed ?Type ktvlnynuhozp-Nh-siyj-minerals 1 tab PO DAILY SUPPLEMEN T 04/25/18 12/07/24 History ondansetron 4 mg disintegrating 8 mg (2 x 4 mg) PO Q8H PRN PRN 12/22/21 12/07/24 Rx tablet Nausea #20 tabs Natali-C 1000mg Tablet 1 tab PO DAILY 01/31/2411/19 History calcium 600 mg (as 1 tab PO DAILY SUPPLEMENT 12/07/24 History carbonate)-vitamin D3 5 mcg (200 unit) tablet docusate sodium 100 mg capsule 100 mg PO DAILY 4 12/07/24 History (Stool Softener) anastrozole 1 mg tablet 1 mg PO DAILY #90 TABLETS 12/07/24 Rx duloxetine 30 mg capsule,delayed 30 mg PO QHS #90 caps 11/03/24 12/07/24 Rx release Have you fallen in the past year?: No Central Venous Access Central Venous Access: Yes Port/PICC: Port (right chest) Exam Physical Exam Narrative ECOG 0 Const alert and oriented x3 General Appearance: cooperative and comfortable HEENT normocephalic Head and Scalp: normal to inspection Face and Sinus: normal facial exam Mouth: oral and palatal mucosa normal Eyes General Eye: normal appearance of both eyes Conjunctiva: conjunctiva normal Sclera: sclera normal Neck no lymphadenopathy and no JVD Lymph Lymphatic: no lymphadenopathy noted Chest Chest: symmetrical chest wall rise Resp clear to auscultation bilaterally Cardio regular rate and regular rhythm Jugular Venous Distention: Negative for JVD GI soft to palpation, non-tender and non-distended; Negative for hepatosplenomegaly no CVA tenderness Back/Spine no thoracic nor lumbar tenderness Extremity no clubbing, cyanosis or edema Skin no rashes or lesions noted Neuro oriented x3, CN's II-XII intact bilaterally and moves all extremities Coordination / Balance: zegbbx-ia-xpsx test normal Speech: speech normal Gait (Neuro): normal gait Psych Appearance: grossly normal, appropriate and well kempt Coding Level of Care Code Off vis,est,level 4 Exam Problem Focused Diagnoses Malignant neoplasm of right breast in female, estrogen receptor positive, unspecified site of breast C50.911; Z17.0 Breast location: unspecified site of breast Estrogen receptor status: positive Patient sex: female Regional lymph node metastasis present C77.9 Primary cancer of left female breast C50.912 Osteopenia of lumbar spine M85.88 Osteopenia location: lumbar spine Assessment and Plan Assessment and Plan (1) Breast cancer, right breast: Status: Chronic Qualifiers: Breast location: unspecified site of breast Estrogen receptor status: positive Patient sex: female Qualified Code(s): C50.911 - Malignant neoplasm of unspecified site of right female breast; Z17.0 - Estrogen receptor positive status [ER+] (2) 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 Cancer is stage IIA (T1C, N1, M0), Overall grade 2 (total score 6), ER positive (>95%), MD positive (>95%) and HER2/abril not amplified. Patient is status post right partial mastectomy with sentinel lymph node biopsy June 07, 2018, adjuvant TC and has been on adjuvant aromatase inhibitor therapy since October 2018. No evidence to suggest disease recurrence 2. Left breast cancer January 2012 stage IIb (T2, N1A, M0) invasive ductal cancer of the left breast G2, ER negative, MD negative, HER-2 overexpressed status post partial mastectomy with axillary lymph node dissection in January 2012 followed by adjuvant AC, Taxol and 1 year of Herceptin and adjuvant radiation therapy. Her adjuvant treatment was concluded June 2012. Comorbid conditions: Osteopenia on vitamin D , calcium and zoledronic acid added October 2018. Despite therapy bone loss continues by bone density May 2024. Plan: 1. Continue systemic adjuvant hormonal therapy 10 years of AI. 2. Screening mammography up-to-date May 2024. 3. Was refered to endocrinology to optimize bone supportive therapy especially with vitamin D and calcium and resume Prolia . Next bone density will be due May 2026 Patient was seen , impression and plan Reviewed . Follow-up in 6 months. Wendi Bhat MD Sulfate Drier Machine Operator, [facility] Divisions of Medical Oncology & Hematology Department of Internal Medicine [facility] [place] [id number] This note was generated using a voice recognition system software. Although it was reviewed by the author prior to finalization, it may still contain incorrect words, spelling, and punctuation that were not noted when reviewing prior to saving. If a clinically significant typo or inaccurately typed phrase is noted, please notify the author. Clinical Quality Measures Falls Risk Screening/Assistive Devices Have you fallen in the past year?: No 12/07/24 4245 <Electronically signed by Wendi hurtado MD> Date _ Wendi Bhat MD Cosigner Signature: Date (if applicable) CC: ~ [place] [employer] Work Phone: 1(345) 517-546009-24-2021 NoteHNO ID: [id number] Author: Alba Paz MD Service: ? Author Type: Physician Type: Progress Notes Filed: 03/14/2021 11:22 AM Note Text: ASSESSMENT/PLAN: 1. Status post cataract extraction and insertion of intraocular lens of right eye - ICD9: V45.61, V43.1, ICD10: Z98.41, Z96.1 (primary diagnosis) 2. Status post cataract extraction and insertion of intraocular lens of left eye - ICD9: V45.61, V43.1, ICD10: Z98.42, Z96.1 Toric Intraocular lens left eye 02/27/2021 Monofocal Intraocular lens right eye 03/13/2021 Use medications as directed: Current Ophthalmic Meds keTORolac (ACULAR) 0.5 % ophthalmic solution Use 1 Drop in the left eye three times daily until 04/03/2021 prednisoLONE acetate (PRED FORTE) 1 % ophthalmic suspension Use 1 Drop in the left eye three times daily until 04/03/2021 keTORolac (ACULAR) 0.5 % ophthalmic solution Use 1 Drop in the right eye four times daily for 1 week then three times daily until 04/17/2021 prednisoLONE acetate (PRED FORTE) 1 % ophthalmic suspension Use 1 Drop in the right eye four times daily for 1 week then three times daily until 04/17/2021 Systane Complete Artificial Tears - Use 1 Drop into both eyes three times a day. Follow up with Dr. Javed next week Alba Paz MD I have confirmed and edited as necessary the relevant ophthalmic history, review of systems, surgical history, and ophthalmological examination findings as obtained by the ophthalmic technical staff. I have seen and examined Aranza St. I have discussed the examination findings, diagnosis, and treatment options with Aranza St and/or her family. I have also reviewed and agree with the assessment and plan as stated above and agree with all its relevant components. I gave the patient the opportunity to ask questions about the findings, diagnosis, and treatment options.[facility]09-23-2021 NotePost Operative Note: Post-Procedure Diagnosis: 1. Combined Form Age Related Cataract Right Eye Procedure: 1. Cataract Extraction with Intraocular Lens Implant Right Eye - corrected for reading Surgeon: Alba Paz MD Resident/Fellow/Other Route Cdl Driver: None Estimated Blood Loss (mL): none Specimen: no Findings: 1. Combined Form Age Related Cataract Right Eye Operative Report Dictated: Dictation: not applicable - note contains Operative Report Operative Report: The patient was correctly identified and the patient's operative eye was marked with a marking pen and verified with the patient in the pre-operative area. The operative eye was dilated in the preoperative area. The patient was then taken to the operating room where timeout was performed before starting the procedure. Combined anesthesia with intravenous sedation and topical tetracaine eyedrops were instilled into the right eye. The operative eye was prepped and draped in the standard sterile ophthalmic fashion in preparation for ophthalmic surgery. A Ariadna wire speculum was then inserted between the eyelids of the right eye and the operating microscope was placed over the right eye. A paracentesis incision was made approximately 30 away from the planned surgical incision site with the help of MVR blade. 1% lidocaine MPF with Phenylephrine 1.5% PF was injected into the anterior chamber through the paracentesis incision. A near limbal clear corneal incision was fashioned in the temporal quadrant just outside the vascular arcade and Viscoat was injected into anterior chamber to firm the eye. A bent needle cystotome was used and Utrata forceps were utilized to create a continuous curvilinear capsulorrhexis. BSS was injected beneath the anterior capsule to hydrodissect the nucleus from adjacent cortex and capsule. The residual cortex was then aspirated with irrigation/aspiration handpiece. The posterior capsule was then polished with the help of soft irrigation-aspiration tip. Provisc viscoelastic was then injected into the eye to reform the anterior chamber and to open the capsular bag. The intraocular lens implant was taken from its sterile wrapping, inspected under the surgical microscope and found to be in good condition. The intraocular lens implant 21.0D was injected into the capsule bag. The Provisc was then aspirated from the anterior chamber and from behind the intraocular lens implant. The anterior chamber was inflated with the help of BSS to moderate tension. And the edges of the surgical incision were then hydrated with the help of BSS. Vigamox was then injected into the anterior chamber and into the capsule bag through the paracentesis incision. The surgical wound was then inspected and found to be watertight. The wire speculum and drapes were then removed. Pred Forte eyedrops, Acular eyedrops and Betadine 5% sterile ophthalmic solution were instilled in the conjunctival sac. The patient tolerated the procedure well and was taken to recovery room in stable condition. Attestation: Note Completion: Attending AttestationI performed the procedure without a resident Electronic Signatures: Alba Paz) (Signed 13-Mar-2021 08:41) Authored: Post Operative Note, Note Completion Last Updated: 13-Mar-2021 08:41 by Alba Paz)[facility] 03-13-2021 NoteHistory & Physical Reviewed: I have reviewed the History and Physical dated: 28-Feb-2021 History and Physical reviewed and relevant findings noted. Patient examined to review pertinent physical findings.: No significant changes Home Medications Reviewed: no changes noted Allergies Reviewed: no changes noted ERAS (Enhanced Recovery After Surgery): ERAS Patient: no Consent: COVID-19 Consent: COVID-19 Risk ConsentSurgeon has reviewed rankin risks related to the risk of jose COVID-19 and if they contract COVID-19 what the risks are. Electronic Signatures: Alba Paz) (Signed 13-Mar-2021 07:14) Authored: History & Physical Reviewed, ERAS, Consent, Note Completion Last Updated: 13-Mar-2021 07:14 by Alba Paz)[facility] 03-11-2021 NoteHNO ID: [id number] Author: Alba Paz MD Service: ? Author Type: Physician Type: Progress Notes Filed: 03/11/2021 11:32 AM Note Text: ASSESSMENT/PLAN: 1. Combined form of age-related cataract, right eye - ICD9: 366.19, ICD10: H25.811 (primary diagnosis) PHYSICAL EXAM: Vital Signs: Blood pressure 170/92, pulse 87. Respiratory: Normal breath sounds, no wheezing. CARD: Normal heart sounds 1 AND 2, normal sinus rhythm. Cataract Presurgical Documentation Cataract: Right eye Patient reported symptoms: Associated symptoms Positive for: Blurred Vision, difficulty with driving, difficulty with reading, difficulty with watching television, dryness, glare Negative for: Itching, flashes, floaters, tearing, halos, burning Current Visual Acuity: Right Eye Distance CC 20/50 Left Eye Distance SC 20/25 Visual Function: [address] states that the decline in vision from the cataract impedes the ability to read, watch television as well as other activities of daily living. Aranza [address] has confirmed that she is no longer able to function adequately on a day-to-day basis because of her current visual condition. Further, it is my medical opinion that the cataract is the primary cause, or at least a significantly contributory cause of her visual dysfunction. With uncomplicated cataract surgery and lens implantation, it is my expectation that her visual function and quality of life will improve, significantly. The risks, benefits, alternatives, personnel and complications of cataract surgery with lens implantation were discussed with Aranza [address] in detail. she appeared to understand and asked that I proceed with plans for surgery. Patient wishes to have traditional cataract surgery with basic Intraocular lens right eye 03/13/[address] [facility]. Patient wishes to have cataract surgery with the option stated above. Patient understands that an intraocular lens implant does not necessarily replace the need for glasses. Patient understands that it is impossible for the surgeon to inform him/her of every possible complication that may occur. The surgeon has answered all of the patient's questions. Patient understands that if he/she has a mature or dense cataract, pseudoexfoliation cataract, or history of use of Flomax, he/she may require the use of Maluyugin Ring and/or Vision Blue during surgery. Patient understands the risks, benefits, and alternatives to surgery. Discussed modified monovision with patient, right eye corrected for reading -1.25 target Patient would like to proceed with the modified monovision Use medications as directed: Current Ophthalmic Meds fluorometholone (FML LIQUID FILM) 0.1 % ophthalmic suspension Use 1 Drop in the right eye three times daily. Systane Complete Artificial Tears - Use 1 Drop into both eyes three times a day. 2. Status post cataract extraction and insertion of intraocular lens, left - ICD9: V45.61, V43.1, ICD10: Z98.42, Z96.1 Current Ophthalmic Meds keTORolac (ACULAR) 0.5 % ophthalmic solution Use 1 Drop in the left eye three times daily until 04/03/2021 prednisoLONE acetate (PRED FORTE) 1 % ophthalmic suspension Use 1 Drop in the left eye three times daily until 04/03/2021 3. History of breast cancer - ICD9: V10.3, ICD10: Z85.3 4. Essential hypertension - ICD9: 401.9, ICD10: I10 Patient received surgical clearance from PCP on 01-23-2021. Continue care with your primary care provider as directed. ? Alba Paz MD I have confirmed and edited as necessary the relevant ophthalmic history, review of systems, surgical history, and ophthalmological examination findings as obtained by the ophthalmic technical staff. I have seen and examined Ar[address]. I have discussed the examination findings, diagnosis, and treatment options with Aranza St and/or her family. I have also reviewed and agree with the assessment and plan as stated above and agree with all its relevant components. I gave the patient the opportunity to ask questions about the findings, diagnosis, and treatment options.[facility]09-10-2021 NoteHNO ID: [id number] Author: Alba Paz MD Service: ? Author Type: Physician Type: Progress Notes Filed: 02/28/2021 10:41 AM Note Text: ASSESSMENT/PLAN: 1. Combined form of age-related cataract, right eye - ICD9: 366.19, ICD10: H25.811 (primary diagnosis) 2. Regular astigmatism of right eye - ICD9: 367.21, ICD10: H52.221 - [facility] ONLY - DIAGNOSTIC OD (RIGHT EYE) Cataract Presurgical Documentation Cataract: Right eye (OD) Patient reported symptoms: Associated symptoms Positive for: Blurred Vision, difficulty with driving, difficulty with reading, difficulty with watching television, glare Negative for: Double Vision, eye redness, foreign body sensation, decreased vision, photophobia, itching, eye discharge, flashes, floaters, inability to meet visual needs of job, tearing, crossed eye, dryness, halos, ghost images, starbursts, wandering eye, burning, puffy eyes, droopy eyes Current Visual Acuity: Right Eye Distance CC 20/50 Left Eye Distance SC 20/40 Right Eye Medium 20/70 Visual Function: [address] states that the decline in vision from the cataract impedes the ability to drive and read as well as other activities of daily living. [address] has confirmed that she is no longer able to function adequately on a day-to-day basis because of her current visual condition. Further, it is my medical opinion that the cataract is the primary cause, or at least a significantly contributory cause of her visual dysfunction. With uncomplicated cataract surgery and lens implantation, it is my expectation that her visual function and quality of life will improve, significantly. The risks, benefits, alternatives, personnel and complications of cataract surgery with lens implantation were discussed with Aranza St in detail. she appeared to understand and asked that I proceed with plans for surgery. Patient wishes to have traditional cataract surgery with basic Intraocular lens right eye 03/13/2021 Patient wishes to have cataract surgery with the option stated above. Patient understands that an intraocular lens implant does not necessarily replace the need for glasses. Patient understands that it is impossible for the surgeon to inform him/her of every possible complication that may occur. The surgeon has answered all of the patient's questions. Patient understands that if he/she has a mature or dense cataract, pseudoexfoliation cataract, or history of use of Flomax, he/she may require the use of Maluyugin Ring and/or Vision Blue during surgery. Patient understands the risks, benefits, and alternatives to surgery. PHYSICAL EXAM: Vital Signs: Blood pressure 170/92, pulse 87. Respiratory: Normal breath sounds, no wheezing. CARD: Normal heart sounds 1 AND 2, normal sinus rhythm. Current Ophthalmic Meds fluorometholone (FML LIQUID FILM) 0.1 % ophthalmic suspension Use 1 Drop in the right eye three times daily. Systane Complete Artificial Tears - Use 1 Drop into both eyes three times a day. 3. Status post cataract extraction and insertion of intraocular lens of left eye - ICD9: V45.61, V43.1, ICD10: Z98.42, Z96.1 - Intraocular lens well centered and clear Left eye SC 20/40 (-2) Current Ophthalmic Meds keTORolac (ACULAR) 0.5 % ophthalmic solution Use 1 Drop in the left eye four times daily. prednisoLONE acetate (PRED FORTE) 1 % ophthalmic suspension Use 1 Drop in the left eye four times daily. Systane Complete Artificial Tears - Use 1 Drop into both eyes three times a day. 4. History of breast cancer - ICD9: V10.3, ICD10: Z85.3 5. Essential hypertension - ICD9: 401.9, ICD10: I10 Patient received surgical clearance from PCP on 01-23-2021. Continue care with your primary care provider as directed. Alba Paz MD I have confirmed and edited as necessary the relevant ophthalmic history, review of systems, surgical history, and ophthalmological examination findings as obtained by the ophthalmic technical staff. I have seen and examined Ar[address]. I have discussed the examination findings, diagnosis, and treatment options with Aranza St and/or her family. I have also reviewed and agree with the assessment and plan as stated above and agree with all its relevant components. I gave the patient the opportunity to ask questions about the findings, diagnosis, and treatment options.[facility]09-09-2021 NotePost Operative Note: Post-Procedure Diagnosis: 1. Combined Form Age Related Cataract Left Eye 2. Regular Astigmatism Left Eye Procedure: 1. Cataract Extraction with Toric Intraocular Lens Implant Left Eye Surgeon: Alba Paz MD Resident/Fellow/Other Route Cdl Driver: None Estimated Blood Loss (mL): none Specimen: no Findings: 1. Combined Form Age Related Cataract Left Eye 2. Regular Astigmatism Left Eye Operative Report Dictated: Dictation: not applicable - note contains Operative Report Operative Report: The patient was correctly identified in the pre-operative area and the operative eye was marked. The operative eye was dilated in the pre-op area. Under the slit lamp the operative eye was marked using a fine marking pen at 3 o'clock, 6 o'clock and 9 o'clock at the limbus. The patient was taken to the operating room and time out was performed prior to starting the procedure. Combined anesthesia with IV sedation and topical tetracaine eye drops was given. The operative eye was prepped and draped in the standard sterile ophthalmic fashion in preparation for the ophthalmic surgery. A Ariadna wire speculum was then placed between the eyelids and the operative microscope was placed over the operative eye. The corrected axis of the Toric Intraocular lens was marked with the help of a marking pen before the start of the procedure. A paracentesis incision was made approximately 30 degrees from the planned surgical incision site with the help of the MVR blade. 1% Lidocaine MPF with Phenylephrine 1.5% PF was injected into the anterior chamber through the paracentesis incision. A near limbal clear corneal incision was fashioned in the temporal quadrant just outside the vascular arcade and viscoat was injected into the anterior chamber to firm the eye. A bent needle cystotome and Utrata forceps were used to create a continuous curvilinear capsulorrhexis. BSS was injected beneath the anterior capsule to hydrodissect the nucleus free form the adjacent cortex and capsule. The nucleus of the cataractous lens was removed with the phacoemulsification instrument. The residual cortex was aspirated with the irrigation/aspiration handpiece. The posterior capsule was then polished with the help of soft irrigation/aspiration tip. Provisc viscoelastic was then injected into the eye to form the anterior chamber and to open the capsular bag. Toric intraocular lens implant was taken from the sterile wrapping, inspected under the surgical microscope and found to be in good condition. The toric intraocular lens implant 19.5D T4 was injected into the capsular bag and rotated to its desired axis of 165. The viscoeclastic material was aspirated from the anterior chamber and from behind the lens optics. The anterior chamber was inflated with the help of BSS to moderate tension and the edges of the surgical incision were hydrated with BSS. Vigamox was injected into the anterior chamber and into the capsular bag through the paracentesis incision. The surgical incision was inspected and found to be water tight. The wire speculum and drapes were removed. Pred Forte eye drops, Acular eye drops and Betadine 5% sterile ophthalmic was instilled into the conjunctival sac. The patient tolerated the procedure well and was taken to the recovery room in stable condition. Attestation: Note Completion: Attending AttestationI performed the procedure without a resident Electronic Signatures: Alba Paz) (Signed 27-Feb-2021 08:47) Authored: Post Operative Note, Note Completion Last Updated: 27-Feb-2021 08:47 by Alba Paz)[facility] 02-27-2021 NoteHistory & Physical Reviewed: I have reviewed the History and Physical dated: 22-Feb-2021 History and Physical reviewed and relevant findings noted. Patient examined to review pertinent physical findings.: No significant changes Home Medications Reviewed: no changes noted Allergies Reviewed: no changes noted ERAS (Enhanced Recovery After Surgery): ERAS Patient: no Consent: COVID-19 Consent: COVID-19 Risk ConsentSurgeon has reviewed rankin risks related to the risk of jose COVID-19 and if they contract COVID-19 what the risks are. Electronic Signatures: Alba Paz () (Signed 27-Feb-2021 07:03) Authored: History & Physical Reviewed, ERAS, Consent, Note Completion Last Updated: 27-Feb-2021 07:03 by Alba Paz)[facility] 02-22-2021 NoteHNO ID: [id number] Author: Alba Paz MD Service: ? Author Type: Physician Type: Progress Notes Filed: 02/22/2021 11:51 AM Note Text: ASSESSMENT/PLAN: 1. Combined form of age-related cataract, left eye - ICD9: 366.19, ICD10: H25.812 (primary diagnosis) 2. Regular astigmatism of left eye - ICD9: 367.21, ICD10: H52.222 PHYSICAL EXAM: Vital Signs: Blood pressure 170/92, pulse 87. Respiratory: Normal breath sounds, no wheezing. CARD: Normal heart sounds 1 AND 2, normal sinus rhythm. Cataract Presurgical Documentation Cataract: Left eye (OS) Patient reported symptoms: Associated symptoms Positive for: Blurred Vision, difficulty with driving, difficulty with reading, difficulty with watching television, dryness, glare Negative for: Itching, flashes, floaters, tearing, halos, burning Current Visual Acuity: Right Eye Distance CC 20/50 Left Eye Distance CC 20/80 Best Corrected Vision Right Eye 20/50 Best Corrected Vision Left Eye 20/80 Glare Testing: N/A Visual Function: [address] states that the decline in vision from the cataract impedes the ability to drive and read as well as other activities of daily living. [address] has confirmed that she is no longer able to function adequately on a day-to-day basis because of her current visual condition. Further, it is my medical opinion that the cataract is the primary cause, or at least a significantly contributory cause of her visual dysfunction. With uncomplicated cataract surgery and lens implantation, it is my expectation that her visual function and quality of life will improve, significantly. The risks, benefits, alternatives, personnel and complications of cataract surgery with lens implantation were discussed with Aranza [address] in detail. she appeared to understand and asked that I proceed with plans for surgery. Patient wishes to have traditional cataract surgery with astigmatism correction by Toric Intraocular lens scheduled for the left eye on 02-27-2021 at [facility]. Patient wishes to have cataract surgery with the option stated above. Patient understands that an intraocular lens implant does not necessarily replace the need for glasses. Patient understands that it is impossible for the surgeon to inform him/her of every possible complication that may occur. The surgeon has answered all of the patient's questions. Patient understands that if he/she has a mature or dense cataract, pseudoexfoliation cataract, or history of use of Flomax, he/she may require the use of Maluyugin Ring and/or Vision Blue during surgery. Patient understands the risks, benefits, and alternatives to surgery. A complete comprehensive dilated exam of both eyes was last performed on 01-15-2021. Current Ophthalmic Meds fluorometholone (FML LIQUID FILM) 0.1 % ophthalmic suspension Use 1 Drop in both eyes three times daily. Systane Complete Artificial Tears - Use 1 Drop into both eyes three times a day. 3. Combined form of age-related cataract, right eye - ICD9: 366.19, ICD10: H25.811 4. Regular astigmatism of right eye - ICD9: 367.21, ICD10: H52.221 Plan cataract surgery of the right eye at a later date. 5. History of breast cancer - ICD9: V10.3, ICD10: Z85.3 6. Essential hypertension - ICD9: 401.9, ICD10: I10 Patient received surgical clearance from PCP on 01-23-2021. Continue care with your primary care provider as directed. Alba Paz MD I have confirmed and edited as necessary the relevant ophthalmic history, review of systems, surgical history, and ophthalmological examination findings as obtained by the ophthalmic technical staff. I have seen and examined [address]. I have discussed the examination findings, diagnosis, and treatment options with Aranza St and/or her family. I have also reviewed and agree with the assessment and plan as stated above and agree with all its relevant components. I gave the patient the opportunity to ask questions about the findings, diagnosis, and treatment options.[facility]08-10-2021 NoteHNO ID: [id number] Author: Alba Paz MD Service: ? Author Type: Physician Type: Progress Notes Filed: 01/28/2021 4:06 PM Note Text: ASSESSMENT/PLAN: 1. Combined form of age-related cataract, left eye - ICD9: 366.19, ICD10: H25.812 (primary diagnosis) 2. Regular astigmatism of left eye - ICD9: 367.21, ICD10: H52.222 Cataract Presurgical Documentation Cataract: Left eye (OS) Patient reported symptoms: Associated symptoms Positive for: Blurred Vision, difficulty with reading, difficulty with watching television, glare Negative for: Double Vision, eye redness, foreign body sensation, decreased vision, photophobia, itching, eye discharge, flashes, floaters, difficulty with driving, inability to meet visual needs of job, tearing, crossed eye, dryness, halos, ghost images, starbursts, wandering eye, burning, puffy eyes, droopy eyes Current Visual Acuity: Right Eye Distance CC 20/50 Left Eye Distance CC 20/80 Glare Testing: Visual Function: [address] states that the decline in vision from the cataract impedes the ability to drive and read as well as other activities of daily living. [address] has confirmed that she is no longer able to function adequately on a day-to-day basis because of her current visual condition. Further, it is my medical opinion that the cataract is the primary cause, or at least a significantly contributory cause of her visual dysfunction. With uncomplicated cataract surgery and lens implantation, it is my expectation that her visual function and quality of life will improve, significantly. The risks, benefits, alternatives, personnel and complications of cataract surgery with lens implantation were discussed with [address] in detail. she appeared to understand and asked that I proceed with plans for surgery. Patient wishes to have traditional cataract surgery with astigmatism correction by Toric Intraocular lens scheduled for the left eye on 02-27-2021 at [facility]. Patient wishes to have cataract surgery with the option stated above. Patient understands that an intraocular lens implant does not necessarily replace the need for glasses. Patient understands that it is impossible for the surgeon to inform him/her of every possible complication that may occur. The surgeon has answered all of the patient's questions. Patient understands that if he/she has a mature or dense cataract, pseudoexfoliation cataract, or history of use of Flomax, he/she may require the use of Maluyugin Ring and/or Vision Blue during surgery. Patient understands the risks, benefits, and alternatives to surgery. PHYSICAL EXAM: Vital Signs: Blood pressure 170/92, pulse 87. Respiratory: Normal breath sounds, no wheezing. CARD: Normal heart sounds 1 AND 2, normal sinus rhythm. A complete comprehensive dilated exam of both eyes was last performed on 01-15-2021. Current Ophthalmic Meds fluorometholone (FML LIQUID FILM) 0.1 % ophthalmic suspension Use 1 Drop in both eyes three times daily. Systane Complete Artificial Tears - Use 1 Drop into both eyes three times a day. 3. Combined form of age-related cataract, right eye - ICD9: 366.19, ICD10: H25.811 4. Regular astigmatism of right eye - ICD9: 367.21, ICD10: H52.221 Plan cataract surgery of the right eye at a later date. 5. History of breast cancer - ICD9: V10.3, ICD10: Z85.3 6. Essential hypertension - ICD9: 401.9, ICD10: I10 Patient received surgical clearance from PCP on 01-23-2021. Continue care with your primary care provider as directed. Alba Paz MD I have confirmed and edited as necessary the relevant ophthalmic history, review of systems, surgical history, and ophthalmological examination findings as obtained by the ophthalmic technical staff. I have seen and examined [address]. I have discussed the examination findings, diagnosis, and treatment options with Aranza St and/or her family. I have also reviewed and agree with the assessment and plan as stated above and agree with all its relevant components. I gave the patient the opportunity to ask questions about the findings, diagnosis, and treatment options.[facility]07-28-2021 NoteHNO ID: [id number] Author: Alba Paz MD Service: ? Author Type: Physician Type: Progress Notes Filed: 01/15/2021 3:07 PM Note Text: ASSESSMENT/PLAN: 1. Combined form of age-related cataract, left eye - ICD9: 366.19, ICD10: H25.812 (primary diagnosis) 2. Regular astigmatism of left eye - ICD9: 367.21, ICD10: H52.222 3. Combined form of age-related cataract, right eye - ICD9: 366.19, ICD10: H25.811 4. Regular astigmatism of right eye - ICD9: 367.21, ICD10: H52.221 Blood pressure 170/92, pulse 87. Cataract Presurgical Documentation Cataract: Both eyes Patient reported symptoms: Associated symptoms Positive for: Blurred Vision, decreased vision, floaters, difficulty with reading, difficulty with watching television, glare Negative for: Itching, flashes, tearing, dryness, halos, burning Current Visual Acuity: Right Eye Distance SC 20/50 Left Eye Distance SC 20/80 Visual Function: [address] states that the decline in vision from the cataract impedes the ability to read, watch television as well as other activities of daily living. [address] has confirmed that she is no longer able to function adequately on a day-to-day basis because of her current visual condition. Further, it is my medical opinion that the cataract is the primary cause, or at least a significantly contributory cause of her visual dysfunction. With uncomplicated cataract surgery and lens implantation, it is my expectation that her visual function and quality of life will improve, significantly. The risks, benefits, alternatives, personnel and complications of cataract surgery with lens implantation were discussed with [address]anza [address] in detail. she appeared to understand and asked that I proceed with plans for surgery. Begin medications as directed: Current Ophthalmic Meds fluorometholone (FML LIQUID FILM) 0.1 % ophthalmic suspension Use 1 Drop in both eyes three times daily. Systane Complete Artificial Tears - Use 1 Drop into both eyes three times a day. Discussed Toric lens with patient A full dilated exam was performed on [address] today Reviewed Dr. Javed's examination and notes today Return 2 weeks for repeat Ascan and schedule surgery 5. History of breast cancer - ICD9: V10.3, ICD10: Z85.3 Alba Paz MD I have confirmed and edited as necessary the relevant ophthalmic history, review of systems, surgical history, and ophthalmological examination findings as obtained by the ophthalmic technical staff. I have seen and examined [address]. I have discussed the examination findings, diagnosis, and treatment options with Aranza St and/or her family. I have also reviewed and agree with the assessment and plan as stated above and agree with all its relevant components. I gave the patient the opportunity to ask questions about the findings, diagnosis, and treatment options.[facility]11-08-2018 Hospital Discharge instructionsAmbulatory Orders* Breast Complete Unilateral [US] Time Frame: 04/28/18, Location: None Selected * ONC Referral: Surgery Time Frame: 0 Days, Location: None Selected * ONC Referral: Surgery Time Frame: 0 Days, Location: None Selected * RAD ONC: CT Sim [RAD.ONC.WOC] Location: None Selected * Return to Office Location: None Selected * Return to Office Location: None Selected * Return to Office Location: None Selected * Return to Office Location: None Selected * SCRN MAMM (CAD)W/CASSIA BILAT Location: None Selected [facility] Work Phone: [phone] Hospital Discharge instructionsAmbulatory Orders* Breast Complete Unilateral [US] Time Frame: 04/28/18, Location: None Selected * ONC Referral: Surgery Time Frame: 0 Days, Location: None Selected * RAD ONC: CT Sim [RAD.ONC.WOC] Location: None Selected * SCRN MAMM (CAD)W/CASSIA BILAT Location: None Selected [facility] [employer] Work Phone: Chief complaint+Reason for visit Narrative* Chief Complaint SCREENING ONC/HEM Reason for Visit Dehydration Educational circumstance Encounter for education Breast cancer, right breast 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 [facility] Work Phone: Evaluation note* Diagnosis Onset Date Resolution Status Breast cancer, right breast chronic Osteopenia chronic 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 Dehydration acute Educational circumstance acu te Encounter for education acut e Breast cancer, right breast chronic Osteopenia chronic 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 [facility] Work Phone: Evaluation note* Diagnosis Onset Date Resolution Status Avulsion fracture of metatarsal bone of right foot acute Right foot pain acute Dehydration acute Educational circumstance acu te Encounter for education acut e Breast cancer, right breast chronic Osteopenia chronic 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 Lump of skin of back acute Infected sebaceous cyst acok e [facility] Work Phone: Evaluation note* Diagnosis Onset Date Resolution Status Dehydration acute Educational circumstance acu te Encounter for education acut e Breast cancer, right breast chronic 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 [facility] Work Phone: Evaluation note* Diagnosis Onset Date Resolution Status Admit Date Breast cancer, right breast chronic December 07, 2024 1:46pm Osteopenia chronic December 07 1:46pm Primary cancer of left femal e breast chronic December 07, 2024 1:46pm Regional lymph node metastas is present chronic December 07, 2024 1:46pm Dehydration acute December 07 2:30pm Educational circumstance acute December 07, 2024 2:30pm Encounter for education acute J 2024 2:30pm Breast cancer, right breast chronic December 07, 2024 2:30pm Osteopenia chronic December 07 2:30pm Primary cancer of left femal e breast chronic December 07, 2024 2:30pm Regional lymph node metastas is present chronic December 07, 2024 2:30pm port placement inactive December 07, 2024 2:30pm [facility] Work Phone: Reason for referral (narrative)No reason for referral [facility] Work [facility]: Summary Purpose Family History No Family History Records Found Relationship Condition Age at Onset Recorded Date/T lowell father Malignant neoplasm Unknown Advance Directives No Advanced Directives Records Found Advance Directive Response Recorded Date/ Time Advance Directives on File No October 252019 2:45pm Advance Directives No October 26, 2019 2:45pm Living Will No December 22, 2021 3 :19am Power of Head Of Mobile No December 22, 2021 3:19am Advance Directive Response Recorded Date/ Time Advance Directives on File No October 252019 2:45pm Advance Directives No October 26, 2019 2:45pm Living Will No February 18 2 1:29pm Power of Head Of Mobile No February 18, 2 022 1:29pm Advance Directive Response Recorded Date/ Time Advance Directives on File No October 252019 1:45pm Advance Directives No October 26, 2019 1:45pm Living Will No February 18 2 12:29pm Power of Head Of Mobile No February 18, 2 022 12:29pm Advance Directive Response Recorded Date/ Time Advance Directives on File No Decem 2022 5:41pm Living Will No May 31, 2 023 5:41pm Do you have a Healthcare Power of Head Of Mobile? 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 ONC/HEM r ankle injury w fall Reason for Visit Breast cancer, right breast Osteopenia 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 Dehydration Educational circumstance Encounter for education Breast cancer, right breast Osteopenia 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 Chief Complaint r ankle injury w fal l [facility] FU ONC/HEM ACUTE-LUMP ON BACK INFECTED CYST ON BACK SCREENING Reason for Visit Avulsion fracture of metatarsal bone of right foot Right foot pain Dehydration Educational circumstance Encounter for education Breast cancer, right breast Osteopenia 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 Lump of skin of back Infected sebaceous cyst Chief Complaint Admit Date 6 MO - NO LABS - PROLIA December 07, 2024 1:46pm ONC/HEM December 07, 2024 2:30 pm Reason for Visit Admit Date Breast cancer, right breast December 07, 2 025 1:46pm Osteopenia December 07, 2024 1:46 pm Primary cancer of left female breast Nov 1:46pm Regional lymph node metastasis present J une 2024 1:46pm Dehydration December 07, 2024 2:30 pm Educational circumstance December 07, 2024 2:30pm Encounter for education December 07, 2024 2:30pm Breast cancer, right breast December 07 025 2:30pm Osteopenia December 07, 2024 2:30 pm Primary cancer of left female breast Nov 2:30pm Regional lymph node metastasis present J [facility] 2024 2:30pm port placement December 07, 2024 2:30 pm Additional Source Comments INFORMATION SOURCE (unrecogn ized section and content) DATE CREATED AUTHOR 05/19/2019 [facility] DATE CREATED AUTHOR AUTHOR'S ORGANIZ ATION 03/13/2021 [facility] DATE CREATED AUTHOR AUTHOR'S ORGANIZ ATION 03/18/2021 [facility] DATE CREATED AUTHOR AUTHOR'S ORGANIZ ATION 09/10/2021 [facility] DATE CREATED AUTHOR AUTHOR'S ORGANIZ ATION 03/31/2025 [facility] Goals (unrecognized section and content) Goals may be documented in a n alternate sectionGoals may be documented in an alternate sectionGoals may be documented in an alternate sectionGoals may be documented in an alternate sectionGoals may be documented in an alternate section Care Teams (unrecognized sec tion and content) Team Status: Active Member Role Status Dates Dr. Dalton Bonilla MD Family Provider Active Dr. Dalton Bonilla MD Primary Care Provider Active Team Status: Active Member Role Status Dates Dr. Wendi Bhat MD Attending Provider Active Dr. Dalton Bonilla MD Primary Care Provider, Famil y Provider Active Dr. Pablito Mares DO Referring Provider Active Team Status: Inactive Member Role Status Dates Dr. Dalton Bonilla MD Primary Care Provider Active Crystal Quinonez TAR BOILER, TAR BOILER-C Attending Provider, Referring Provider Active Team Status: Active Member Role Status Dates Dr. Dalton Bonilla MD Primary Care Provider Active Team Status: Inactive Member Role Status Dates Dr. Dalton Bonilla MD Primary Care Provider Active Start: December 07, 2024 End: December 07, 2024 Dr. aDlton Bonilla MD Referring Provider Active Start: December 07, 2024 End: December 07, 2024 Dr. Wendi Bhat MD Attending Provider Active Start: December 07, 2024 End: December 07, 2024 Team Status: Active Member Role Status Dates Dr. Wendi Bhat MD Attending Provider Active Start: December 07, 2024 Dr. Dalton Bonilla MD Primary Care Provider Active Start: December 07, 2024 Dr. Dalton Bonilla MD Family Provider Active Start: December 07, 2024 Dr. Pablito Mares DO Referring Provider Active Start: December 07, 2024 FOR RECORDS PERTAINING TO PATIENTS WHO ARE OR HAVE BEEN ENROLLED IN A CHEMICAL DEPENDENCY/SUBSTANCEABUSE PROGRAM, SOME INFORMATION MAY BE OMITTED. This clinical summary was aggregated from multiple sources. Caution should be exercised in using it in the provision of clinical care. This summary normalizes information from multiple sources, and as a consequence, information in this document may materially change the coding, format and clinical context of patient data. In addition, data may be omitted in some cases. CLINICAL DECISIONS SHOULD BE BASED ON THE PRIMARY CLINICAL RECORDS. [employer] provides no warranty or guarantee of the accuracy or completeness of information in this document.
== END | disposition home or self-care (01) ==
PROVIDERS: PCP Internal Medicine; Referring Provider Internal Medicine Hematology & Oncology; Visit Provider Internal Medicine Hematology & Oncology
DX: Z12.31 Encounter for screening mammogram for malignant neoplasm of breast (principal)
CPT/HCPCS: 77063; 77067